=== PATIENT | female | born 1960 | race Caucasian/White ===

== ENCOUNTER 2020-10-05 00:42 | Emergency (ER) | payer OTHER ==
[~2020-10-05] VITALS: Ht 162.6 cm; Wt 109.3 kg
[~2020-10-05 00:42] MED LIST: ADVAIR 250-501 EACH INH; CLONAZEPAM2 MG PO; COMBIVENT RESPIM4 GM INH; CYCLOBENZAPRINE10 MG PO; FUROSEMIDE40 MG PO; GABAPENTIN600 MG PO; GEMFIBROZIL600 MG PO; GEODON80 MG NG; GEODON80 MG PO; KLOR-CON M1010 MEQ PO; LANTUS100 UNITS/ SUB-Q; NORCO 10-325 T1 EACH PO; NOVOLOG100 UNITS/ SUB-Q; OMEPRAZOLE20 MG PO; OXYCODONE HCL5 MG PO; PAROXETINE HCL40 MG PO; PRAZOSIN HCL2 MG PO; SIMVASTATIN40 MG PO; SINEMET CR 25-1 EACH PO; SULINDAC200 MG PO; VISTARIL50 MG PO; WELLBUTRIN XL150 MG PO; XARELTO10 MG PO
--- OUTSIDE RECORDS SUMMARY | 2020-10-05 00:44 | XMS ---
PreManage Notification: BLAIR ANDERS Security Sybase Developer Events No recent Security Events currently on file CRITERIA MET - PDMP CARE PROVIDERS FUENTES SAUNDERS Manufacturers Service Representative 04/21/2019-Current PHONE: [phone] Name Unknown [facility] Facility Current PHONE: [phone] Juanpablo Le Community Health Worker 11/02/2019-Current PHONE: [phone] Fran Gloria Home School Coordinator/Knife Glazer 10/09/2019-Current PHONE: [phone] Care Guidelines exist for the following facilities: [facility] ( 05/25/2019 ) [facility] ( [facility] VISIT COUNT (12 MO.) [address] [facility] TOTAL 1 NOTE: Visits indicate total known visits. ED/UCC VISIT TRACKING (12 MO.) 10/05/2020 00:42 [facility]KK[facility] Sheets [place] TYPE: Emergency COMPLAINT: - BLOOD SUGAR ISSUE INPATIENT VISIT TRACKING (12 MO.) No inpatient visits to display in this time frame [id number]
[2020-10-05] MEDS ORDERED: HALOPERIDOL2 MG PO (01:26)
[2020-10-05] MEDS ORDERED: LOPERAMIDE2 M1 PO (01:27)
[2020-10-05] MEDS ORDERED: ZESTRIL2.5 MG PO (01:28)
[2020-10-05] MEDS ORDERED: IPRATROPIU0.2 MG/1 M INH (01:28)
[2020-10-05] MEDS ORDERED: MELATONIN3 M3 PO (01:29)
[2020-10-05] MEDS ORDERED: MAG-AL LIQUID30 ML PO (01:30)
[2020-10-05] MEDS ORDERED: MULTIVITAMINS1 EAC7 PO (01:30)
[2020-10-05] MEDS ORDERED: NAPROSYN500 MG PO (01:31)
[2020-10-05] MEDS ORDERED: ASPIRIN81 MG PO (01:31)
[2020-10-05] MEDS ORDERED: BENZTROPINE ME0.5 MG PO (01:32)
[2020-10-05] MEDS ORDERED: DULCOLAX10 MG PR (01:32)
[2020-10-05] MEDS ORDERED: TYLENOL EXTRA500 MG PO (01:33)
== END 2020-10-05 02:49 | disposition home or self-care (01) ==
LOC: ED 00:42
DX: E11.65 Type 2 diabetes mellitus with hyperglycemia (principal); F31.9 Bipolar disorder, unspecified; F43.10 Post-traumatic stress disorder, unspecified; E11.42 Type 2 diabetes mellitus with diabetic polyneuropathy; K21.9 Gastro-esophageal reflux disease without esophagitis; G20 Parkinson's disease; Z87.891 Personal history of nicotine dependence; Z88.0 Allergy status to penicillin; Z88.8 Allergy status to other drugs, medicaments and biological substances; Z88.1 Allergy status to other antibiotic agents; Z88.7 Allergy status to serum and vaccine; Z79.899 Other long term (current) drug therapy; Z79.4 Long term (current) use of insulin; Z79.82 Long term (current) use of aspirin
CPT/HCPCS: 71045; 80053; 81001; 82010; 85025; 99285-25; J7030

== ENCOUNTER 2021-02-04 13:22 | Emergency (ER) | payer OTHER ==
[~2021-02-04] VITALS: Ht 162.6 cm; Wt 109.3 kg
[~2021-02-04 13:22] MED LIST changes: +ASPIRIN81 MG PO; +BENZTROPINE ME0.5 MG PO; +DULCOLAX10 MG PR; +HALOPERIDOL2 MG PO; +IPRATROPIU0.2 MG/1 M INH; +LOPERAMIDE2 M1 PO; +MAG-AL LIQUID30 ML PO; +MELATONIN3 M3 PO; +MULTIVITAMINS1 EAC7 PO; +NAPROSYN500 MG PO; +TYLENOL EXTRA500 MG PO; +ZESTRIL2.5 MG PO
--- OUTSIDE RECORDS SUMMARY | 2021-02-04 13:24 | XMS ---
PreManage Notification: BLAIR ANDERS Security Embedded Software Test Engineer Events No recent Security Events currently on file CRITERIA MET - [facility] FUENTES SAUNDERS Clinical Informatics Strategist 04/21/2019-Current PHONE: [phone] [facility] [employer] \F\ [employer] PHONE: [phone] Juanpablo Le Community Health Worker 11/02/2019-Current PHONE: [phone] Radha Barclay Molecular Geneticist/Application Development Consultant 12/19/2020-Current PHONE: [phone] Care Guidelines exist for the following facilities: [facility] ( 01/02/2021 ) [facility] ( 05/25/2019 ) [facility] VISIT COUNT (12 MO.) [address] [facility] TOTAL 2 NOTE: Visits indicate total known visits. ED/UCC VISIT TRACKING (12 MO.) 02/04/2021 13:23 [facility] [place] TYPE: Emergency COMPLAINT: - LEG PAIN 10/05/2020 00:42 [facility] [place] TYPE: Emergency COMPLAINT: - BLOOD SUGAR ISSUE DIAGNOSES: - Allergy status to other drugs, medicaments and biological substances - Personal history of nicotine dependence - Parkinson's disease - Disorientation, unspecified - Allergy status to other antibiotic agents - Allergy status to serum and vaccine - Allergy status to penicillin - Bipolar disorder, unspecified - Allergy status to other antibiotic agents - Allergy status to serum and vaccine - Type 2 diabetes mellitus with hyperglycemia - Other calciminer (current) drug therapy - steam shovel operating engineer (current) use of aspirin - [facility] (current) use of insulin - Allergy status to other drugs, medicaments and biological substances - Post-traumatic stress disorder, unspecified - Type 2 diabetes mellitus with diabetic polyneuropathy - Gastro-esophageal reflux disease without esophagitis INPATIENT VISIT TRACKING (12 MO.) No inpatient visits to display in this time frame [id number]
[2021-02-04] MEDS ORDERED: CLINDAMYCIN HC300 MG PO (13:35)
== END 2021-02-04 15:52 | disposition home or self-care (01) ==
LOC: ED 13:22
DX: S09.90XA Unspecified injury of head, initial encounter (principal); S92.414A Nondisplaced fracture of proximal phalanx of right great toe, initial encounter for closed fracture; S80.01XA Contusion of right knee, initial encounter; W01.10XA Fall on same level from slipping, tripping and stumbling with subsequent striking against unspecified object, initial encounter; J44.9 Chronic obstructive pulmonary disease, unspecified; K21.9 Gastro-esophageal reflux disease without esophagitis; E11.9 Type 2 diabetes mellitus without complications; Z87.891 Personal history of nicotine dependence; Z88.0 Allergy status to penicillin; Z88.8 Allergy status to other drugs, medicaments and biological substances; Z88.7 Allergy status to serum and vaccine; Z88.1 Allergy status to other antibiotic agents; Z79.899 Other long term (current) drug therapy; Z79.4 Long term (current) use of insulin; Z79.82 Long term (current) use of aspirin
CPT/HCPCS: 70450; 71045; 72125; 73560; 73630; 99284-25

== ENCOUNTER 2021-06-15 21:53 | Emergency (ER) | payer OTHER ==
[~2021-06-15] VITALS: Ht 167.6 cm; Wt 109.3 kg
[~2021-06-15 21:53] MED LIST changes: +CLINDAMYCIN HC300 MG PO
--- OUTSIDE RECORDS SUMMARY | 2021-06-15 21:56 | XMS ---
PreManage Notification: BLAIR ANDERS Security Accountant Budget Events No recent Security Events currently on file CRITERIA MET - NAYANP CARE PROVIDERS FUENTES SAUNDERS Civil Engineer In Training 04/21/2019-Current PHONE: [phone] AMNA SABILLON [facility] 02/06/2021-Current PHONE: [phone] Juanpablo Le Community Health Worker 11/02/2019-Current PHONE: [phone] Wm Milton Chairman President And Chief Executive Officer/Tripe Scraper 05/18/2021-Current PHONE: [phone] [facility] Current PHONE: [phone] Care Guidelines exist for the following facilities: [facility] [place] ( 01/02/2021 ) [facility] ( 05/25/2019 ) [place] VISIT COUNT (12 MO.) 3 RIKKI Curiel TOTAL 3 NOTE: Visits indicate total known visits. ED/UCC VISIT TRACKING (12 MO.) 06/15/2021 21:53 [facility] Sheets [place] TYPE: Emergency COMPLAINT: - BACK PAIN 02/04/2021 13:23 [facility]KK[facility] Sheets [place] TYPE: Emergency COMPLAINT: - HEAD INJURY, LEG PAIN DIAGNOSES: - Personal history of nicotine dependence - Other retirement (current) drug therapy - Nondisplaced fracture of proximal phalanx of right great toe, initial encounter for closed fracture - Nondisplaced fracture of proximal phalanx of right great toe, initial encounter for closed fracture - Unspecified injury of head, initial encounter - Allergy status to other drugs, medicaments and biological substances - Type 2 diabetes mellitus without complications - intermediate project manager (current) use of aspirin - Allergy status to penicillin - Fall on same level from slipping, tripping and stumbling with subsequent striking against unspecified object, initial encounter - Allergy status to serum and vaccine - Unspecified injury of head, initial encounter - Gastro-esophageal reflux disease without esophagitis - Chronic obstructive pulmonary disease, unspecified - Contusion of right knee, initial encounter - Allergy status to other antibiotic agents - shelter (current) use of insulin 10/05/2020 00:42 [facility] [place] TYPE: Emergency [...] 2 diabetes mellitus with hyperglycemia - Other retirement (current) drug therapy - shelter (current) use of aspirin - shelter (current) use of insulin - Allergy status to other drugs, medicaments and biological substances - Post-traumatic stress disorder, unspecified - Type 2 diabetes mellitus with diabetic polyneuropathy - Gastro-esophageal reflux disease without esophagitis INPATIENT VISIT TRACKING (12 MO.) No inpatient visits to display in this time frame [id number]
--- NOTE | 2021-06-16 20:49 | EKG ---
[facility] [address] [facility] [place], [place] [address] Signed Normal sinus rhythm Normal ECG No previous ECGs available Confirmed by IVELISSE DURAN MD ([id number]) on 06/16/2021 8:48:50 PM Electronically Signed By: IVELISSE DURAN MD 06/16/212048 PATIENT NAME: BLAIR ANDERS Electrocardiogram DATE OF : 62 PHYSICIAN: IVELISSE DURAN MD REPORT #: [id number] REPORT IS CONFIDENTIAL AND NOT TO BE RELEASED WITHOUT AUTHORIZATION
== END 2021-06-16 | disposition home or self-care (01) ==
LOC: ED 21:53
DX: G89.29 Other chronic pain (principal); M54.5 Low back pain; R07.89 Other chest pain; E11.42 Type 2 diabetes mellitus with diabetic polyneuropathy; J44.9 Chronic obstructive pulmonary disease, unspecified; K21.9 Gastro-esophageal reflux disease without esophagitis; F17.200 Nicotine dependence, unspecified, uncomplicated; Z88.8 Allergy status to other drugs, medicaments and biological substances; Z88.0 Allergy status to penicillin; Z88.7 Allergy status to serum and vaccine; Z88.1 Allergy status to other antibiotic agents; Z79.899 Other long term (current) drug therapy; Z79.4 Long term (current) use of insulin; Z79.82 Long term (current) use of aspirin
CPT/HCPCS: 71045; 80053; 83735; 84484; 85025; 93005; 93010; 99285-25

== ENCOUNTER 2021-06-28 21:21 | Emergency (ER) | payer OTHER ==
[~2021-06-28] VITALS: Ht 167.6 cm; Wt 109.3 kg
--- OUTSIDE RECORDS SUMMARY | 2021-06-28 21:24 | XMS ---
PreManage Notification: BLAIR ANDERS Security Net Developer With Wcf Events No recent Security Events currently on file CRITERIA MET - [facility] - [facility] - 2 Visits in 30 Days CARE PROVIDERS FUENTES SAUNDERS 04/21/2019-Current PHONE: [phone] AMNA SABILLON [facility] 02/06/2021-Current PHONE: [phone] Juanpablo Le Community Health Worker 11/02/2019-Current PHONE: [phone] Wm Milton Comparative Sociology Professor/Vessel Builder 06/18/2021-Current PHONE: [phone] FRANCES [facility] Current PHONE: [phone] Care Guidelines exist for the following facilities: [facility] ( 01/02/2021 ) [facility] ( 05/25/2019 ) [place] VISIT COUNT (12 MO.) 4 RIKKI Curiel TOTAL 4 NOTE: Visits indicate total known visits. ED/UCC VISIT TRACKING (12 MO.) 06/28/2021 21:21 [facility]KK[facility] Sheets [place] TYPE: Emergency COMPLAINT: - CHEST PAIN 06/15/2021 21:53 [facility] Sheets [place] TYPE: Emergency COMPLAINT: - BACK PAIN DIAGNOSES: - Low back pain - Other jail (current) drug therapy - Allergy status to other drugs, medicaments and biological substances - long-term (current) use of aspirin - Allergy status to penicillin - Nicotine dependence, unspecified, uncomplicated - technician terminal and repeater (current) use of insulin - Gastro-esophageal reflux disease without esophagitis - Other chronic pain - Chronic obstructive pulmonary disease, unspecified - Type 2 diabetes mellitus with diabetic polyneuropathy - Other chest pain - Allergy status to serum and vaccine - Allergy status to other antibiotic agents 02/04/2021 13:23 RIKK[facility] Sheets [place] TYPE: Emergency COMPLAINT: - HEAD INJURY, LEG PAIN DIAGNOSES: - Personal history of nicotine dependence - Other termite renewal inspector (current) drug therapy - Nondisplaced fracture of proximal phalanx of right great toe, initial encounter for closed fracture - Nondisplaced fracture of proximal phalanx of right great toe, initial encounter for closed fracture - Unspecified injury of head, initial encounter - Allergy status to other drugs, medicaments and biological substances - Type 2 diabetes mellitus without complications - long-term (current) use of aspirin - Allergy status [...] Allergy status to other antibiotic agents - long-term (current) use of insulin 10/05/2020 00:42 RIKKI [...] 2 diabetes mellitus with hyperglycemia - Other jail (current) drug therapy - long-term (current) use of aspirin - technician terminal and repeater (current) use of insulin - Allergy status to other drugs, medicaments and biological substances - Post-traumatic stress disorder, unspecified - Type 2 diabetes mellitus with diabetic polyneuropathy - Gastro-esophageal reflux disease without esophagitis INPATIENT VISIT TRACKING (12 MO.) No inpatient visits to display in this time frame [id number]
[2021-06-28] MEDS ORDERED: BACTRIM DS TAB1 EACH PO (22:59)
--- NOTE | 2021-06-29 20:15 | EKG ---
[facility] [address] [facility] [place], [place] [address] Signed Normal sinus rhythm Normal ECG When compared with ECG of 15-JUN-2021 22:13, No significant change was found Confirmed by SYMONE CONTRERAS DO ([id number]) on 06/29/2021 8:15:19 PM Electronically Signed By: SYMONE CONTRERAS DO 06/29/212014 PATIENT NAME: BLAIR ANDERS Electrocardiogram DATE OF : 62 PHYSICIAN: SYMONE CONTRERAS DO REPORT #: [id number] REPORT IS CONFIDENTIAL AND NOT TO BE RELEASED WITHOUT AUTHORIZATION
== END 2021-06-28 23:34 | disposition home or self-care (01) ==
LOC: ED 21:21
DX: N39.0 Urinary tract infection, site not specified (principal); F43.10 Post-traumatic stress disorder, unspecified; J44.9 Chronic obstructive pulmonary disease, unspecified; K21.9 Gastro-esophageal reflux disease without esophagitis; G20 Parkinson's disease; E11.9 Type 2 diabetes mellitus without complications; F17.200 Nicotine dependence, unspecified, uncomplicated; Z88.0 Allergy status to penicillin; Z88.7 Allergy status to serum and vaccine; Z88.1 Allergy status to other antibiotic agents; Z88.8 Allergy status to other drugs, medicaments and biological substances; Z79.899 Other long term (current) drug therapy; Z79.4 Long term (current) use of insulin; Z79.82 Long term (current) use of aspirin
CPT/HCPCS: 70450; 71045; 80053; 81001; 83735; 84484; 85025; 93005; 93010; 99285-25

== ENCOUNTER 2021-11-09 21:59 | Emergency (ER) | payer OTHER ==
[~2021-11-09] VITALS: Ht 167.6 cm; Wt 111.0 kg
[~2021-11-09 21:59] MED LIST changes: +BACTRIM DS TAB1 EACH PO
--- OUTSIDE RECORDS SUMMARY | 2021-11-09 22:00 | XMS ---
PreManage Notification: BLAIR ANDERS Security Capacity Planning Analyst Events No recent Security Events currently on file CRITERIA MET - NAYANP CARE PROVIDERS FUENTES SAUNDERS Court Specialist 04/21/2019-Current PHONE: [phone] AMNA SABILLON [facility] 02/06/2021-Current PHONE: [phone] Juanpablo Le Community Health Worker 11/02/2019-Current PHONE: [phone] Radha Barclay Results Technician/Nursing Home Director 10/18/2021-Current PHONE: [phone] [facility] Current PHONE: Unknown Care Guidelines exist for the following facilities: [facility] [employer] ( 01/02/2021 ) [employer] [facility] ( 05/25/2019 ) Care History Medical/Surgical 07/05/2021 [facility] - PATIENT WAS LAST SEEN BY PCP DR SABILLON ON 06/28/21. F/U APT SCHEDULED . ETonaD. VISIT COUNT (12 MO.) [address] [place] [address] TOTAL 4 NOTE: Visits indicate total known visits. ED/UCC VISIT TRACKING (12 MO.) 11/09/2021 21:59 RIKKI Sheets [place] TYPE: Emergency COMPLAINT: - WEAKNESS 06/28/2021 21:21 RIKK[facility] Sheets [place] TYPE: Emergency COMPLAINT: - CHEST PAIN DIAGNOSES: - Parkinson's disease - Chronic obstructive pulmonary disease, unspecified - Post-traumatic stress disorder, unspecified - Gastro-esophageal reflux disease without esophagitis - Other director long term care (current) drug therapy - Allergy status to other drugs, medicaments and biological substances - retirement (current) use of aspirin - Dizziness and giddiness - Allergy status to serum and vaccine - Allergy status to other antibiotic agents - Type 2 diabetes mellitus without complications - Allergy status to penicillin - retirement (current) use of insulin - Urinary tract infection, site not specified - Nicotine dependence, unspecified, uncomplicated 06/15/2021 21:53 [facility]KK[facility] Sheets [place] TYPE: Emergency COMPLAINT: - BACK PAIN DIAGNOSES: - Low back pain - Other group home (current) drug therapy - Allergy status to other drugs, medicaments and biological substances - vermin exterminator (current) use of aspirin - Allergy status to penicillin - Nicotine dependence, unspecified, uncomplicated - retirement (current) use of insulin - Gastro-esophageal reflux [...] Personal history of nicotine dependence - Other director long term care (current) drug therapy - Nondisplaced fracture of proximal phalanx of right great toe, initial encounter for closed fracture - Nondisplaced fracture of proximal phalanx of right great toe, initial encounter for closed fracture - Unspecified injury of head, initial encounter - Allergy status to other drugs, medicaments and biological substances - Type 2 diabetes mellitus without complications - retirement (current) use of aspirin - Allergy status [...] Allergy status to other antibiotic agents - vermin exterminator (current) use of insulin INPATIENT VISIT TRACKING (12 MO.) No inpatient visits to display in this time frame [id number]
[2021-11-09] MEDS ORDERED: PAXIL40 MG PO (22:11)
[2021-11-09] MEDS ORDERED: GEODON80 MG NG (22:12)
[2021-11-09] MEDS ORDERED: NOVOLOG100 UNIT/2 SUB-Q (22:14)
[2021-11-09] MEDS ORDERED: ULTRAM50 MG PO (22:14)
[2021-11-10] MEDS ORDERED: TRANSDERM-SCOP1 EACH TD (01:20)
--- NOTE | 2021-11-11 17:40 | EKG ---
[facility] [address] [facility] [facility] [place], [place] [address] Signed Normal sinus rhythm Low voltage QRS Borderline ECG When compared with ECG of 28-JUN-2021 21:23, No significant change was found Confirmed by SYMONE CONTRERAS DO ([id number]) on 11/11/2021 5:40:00 PM Electronically Signed By: SYMONE CONTRERAS DO 11/11/21 1740 PATIENT NAME: CHAGOBLAIRALESSANDRO BAUTISTA Electrocardiogram DATE OF : 62 PHYSICIAN: SYMONE CONTRERAS DO REPORT #: [id number] REPORT IS CONFIDENTIAL AND NOT TO BE RELEASED WITHOUT AUTHORIZATION
== END 2021-11-10 01:29 | disposition home or self-care (01) ==
LOC: ED 21:59
DX: R42 Dizziness and giddiness (principal); M19.90 Unspecified osteoarthritis, unspecified site; F43.10 Post-traumatic stress disorder, unspecified; J44.9 Chronic obstructive pulmonary disease, unspecified; K21.9 Gastro-esophageal reflux disease without esophagitis; E11.9 Type 2 diabetes mellitus without complications; F17.200 Nicotine dependence, unspecified, uncomplicated; Z88.0 Allergy status to penicillin; Z88.8 Allergy status to other drugs, medicaments and biological substances; Z88.1 Allergy status to other antibiotic agents; Z79.899 Other long term (current) drug therapy; Z79.4 Long term (current) use of insulin; Z79.82 Long term (current) use of aspirin; Z79.891 Long term (current) use of opiate analgesic
CPT/HCPCS: 70450; 80053; 84484; 85025; 93005; 93010; 99284-25

== ENCOUNTER 2021-11-18 13:24 | Emergency (ER) | payer OTHER ==
[~2021-11-18] VITALS: Ht 167.6 cm; Wt 110.7 kg
[~2021-11-18 13:24] MED LIST changes: +NOVOLOG100 UNIT/2 SUB-Q; +PAXIL40 MG PO; +TRANSDERM-SCOP1 EACH TD; +ULTRAM50 MG PO
--- OUTSIDE RECORDS SUMMARY | 2021-11-18 13:26 | XMS ---
PreManage Notification: BLAIR ANDERS Security Shopping Centre Manager Events No recent Security Events currently on file CRITERIA MET - [facility] - 2 Visits in 30 Days - [facility] C[facility] PROVIDERS FUENTES SAUNDERS 04/21/2019-Current PHONE: [phone] AMNA SABILLON [facility] 02/06/2021-Current PHONE: [phone] Juanpablo Le Community Health Worker 11/02/2019-Current PHONE: [phone] Radha Barclay Top Case Assembler/Air Valve Repairer 10/18/2021-Current PHONE: [phone] FRANCES [facility] Current PHONE: Unknown Care Guidelines exist for the following facilities: [employer] ( 01/02/2021 ) [employer] ( 05/25/2019 ) Care History Medical/Surgical 07/05/2021 [facility] - PATIENT WAS LAST SEEN BY PCP DR SABILLON ON 06/28/21. F/U APT SCHEDULED . ETonaD. VISIT COUNT (12 MO.) [address] [place] [address] TOTAL 5 NOTE: Visits indicate total known visits. ED/UCC VISIT TRACKING (12 MO.) 11/18/2021 13:24 [facility]KK[facility] Sheets [place] TYPE: Emergency COMPLAINT: - COVID SYPTOMS 11/09/2021 21:59 RIKKI Sheets [place] TYPE: Emergency COMPLAINT: - WEAKNESS DIAGNOSES: - Nicotine dependence, unspecified, uncomplicated - Dizziness and giddiness - detention (current) use of insulin - Allergy status to penicillin - extermination inspector (current) use of aspirin - Allergy status to other antibiotic agents - Unspecified osteoarthritis, unspecified site - extermination inspector (current) use of opiate analgesic - Other regional intermodal truck driver (current) drug therapy - Gastro-esophageal reflux disease without esophagitis - Chronic obstructive pulmonary disease, unspecified - Type 2 diabetes mellitus without complications - Post-traumatic stress disorder, unspecified - Allergy status to other drugs, medicaments and biological substances 06/28/2021 21:21 RIKKI Sheets [place] TYPE: Emergency COMPLAINT: - CHEST PAIN DIAGNOSES: - Parkinson's disease - Chronic obstructive pulmonary disease, unspecified - Post-traumatic stress disorder, unspecified - Gastro-esophageal reflux disease without esophagitis - Other alf (current) drug therapy - Allergy status to other drugs, medicaments and biological substances - detention (current) use of aspirin - Dizziness and giddiness - Allergy status to serum and vaccine - Allergy status to other antibiotic agents - Type 2 diabetes mellitus without complications - Allergy status to penicillin - extermination inspector (current) use of insulin - Urinary tract infection, site not specified - Nicotine dependence, unspecified, uncomplicated 06/15/2021 21:53 [facility]KK[facility] Sheets [place] TYPE: Emergency COMPLAINT: - BACK PAIN DIAGNOSES: - Low back pain - Other alf (current) drug therapy - Allergy status to other drugs, medicaments and biological substances - extermination inspector (current) use of aspirin - Allergy status to penicillin - Nicotine dependence, unspecified, uncomplicated - detention (current) use of insulin - Gastro-esophageal reflux disease without esophagitis - Other chronic pain - Chronic obstructive pulmonary disease, unspecified - Type 2 diabetes mellitus with diabetic polyneuropathy - Other chest pain - Allergy status to serum and vaccine - Allergy status to other antibiotic agents 02/04/2021 13:[address] [facility] [place] TYPE: Emergency COMPLAINT: - HEAD INJURY, LEG PAIN DIAGNOSES: - Personal history of nicotine dependence - Other regional intermodal truck driver (current) drug therapy - Nondisplaced fracture of proximal phalanx of right great toe, initial encounter for closed fracture - Nondisplaced fracture of proximal phalanx of right great toe, initial encounter for closed fracture - Unspecified injury of head, initial encounter - Allergy status to other drugs, medicaments and biological substances - Type 2 diabetes mellitus without complications - extermination inspector (current) use of aspirin - Allergy status [...] Allergy status to other antibiotic agents - detention (current) use of insulin INPATIENT VISIT TRACKING (12 MO.) No inpatient visits to display in this time frame [id number]
[2021-11-19] MEDS ORDERED: IPRAT-ALBUT 0.5-3 ML INH (17:30)
[2021-11-19] MEDS ORDERED: PREDNISONE20 MG PO (17:30)
== END 2021-11-18 16:00 | disposition home or self-care (01) ==
LOC: ED 13:24
DX: J20.5 Acute bronchitis due to respiratory syncytial virus (principal); Z20.822 Contact with and (suspected) exposure to COVID-19; M19.90 Unspecified osteoarthritis, unspecified site; F43.10 Post-traumatic stress disorder, unspecified; J44.9 Chronic obstructive pulmonary disease, unspecified; K21.9 Gastro-esophageal reflux disease without esophagitis; G20 Parkinson's disease; E11.9 Type 2 diabetes mellitus without complications; F20.9 Schizophrenia, unspecified; F17.200 Nicotine dependence, unspecified, uncomplicated; Z88.0 Allergy status to penicillin; Z88.7 Allergy status to serum and vaccine; Z79.899 Other long term (current) drug therapy; Z79.4 Long term (current) use of insulin; Z79.82 Long term (current) use of aspirin; Z79.891 Long term (current) use of opiate analgesic
CPT/HCPCS: 71045; 94640; 99285-25; C9803; U0003

== ENCOUNTER 2021-11-19 13:51 | Emergency (ER) | payer OTHER ==
[~2021-11-19] VITALS: Ht 167.6 cm; Wt 110.7 kg
--- OUTSIDE RECORDS SUMMARY | 2021-11-19 13:54 | XMS ---
PreManage Notification: BLAIR ANDERS Security Boxer Operator Events No recent Security Events currently on file CRITERIA MET - [facility] - [facility] FUENTES SAUNDERS 04/21/2019-Current PHONE: [phone] AMNA SABILLON [facility] 02/06/2021-Current PHONE: [phone] Juanpablo Le Community Health Worker 11/02/2019-Current PHONE: [phone] Radha Barclay Golf Course Equipment Operator/Drug Purchaser 10/18/2021-Current PHONE: [phone] FRANCES [facility] Current PHONE: Unknown Care Guidelines exist for the following facilities: [employer] ( 01/02/2021 ) [employer] ( 05/25/2019 ) Care History Medical/Surgical 07/05/2021 [facility] - PATIENT WAS LAST SEEN BY PCP DR SABILLON ON 06/28/21. F/U APT SCHEDULED . ETonaD. VISIT COUNT (12 MO.) 6 [facility] TOTAL 6 NOTE: Visits indicate total known visits. ED/UCC VISIT TRACKING (12 MO.) 11/19/2021 13:52 [facility]KK[facility] Sheets [place] TYPE: Emergency COMPLAINT: - CAUGH 11/18/2021 13:24 [facility]KK[facility] Sheets [place] TYPE: Emergency COMPLAINT: - COVID SYPTOMS 11/09/2021 21:59 [facility]KK[facility] Sheets [place] TYPE: Emergency COMPLAINT: - WEAKNESS DIAGNOSES: - Nicotine dependence, unspecified, uncomplicated - Dizziness and giddiness - USP (current) use of insulin - Allergy status to penicillin - USP (current) use of aspirin - Allergy status to other antibiotic agents - Unspecified osteoarthritis, unspecified site - USP (current) use of opiate analgesic - Other retirement (current) drug therapy - Gastro-esophageal reflux disease [...] Gastro-esophageal reflux disease without esophagitis - Other termite exterminator (current) drug therapy - Allergy status to other drugs, medicaments and biological substances - adjunct faculty for medical terminology (current) use of aspirin - Dizziness and giddiness - Allergy status to serum and vaccine - Allergy status to other antibiotic agents - Type 2 diabetes mellitus without complications - Allergy status to penicillin - USP (current) use of insulin - Urinary tract infection, site not specified - Nicotine dependence, unspecified, uncomplicated 06/15/2021 21:53 RIKKI Sheets [place] TYPE: Emergency COMPLAINT: - BACK PAIN DIAGNOSES: - Low back pain - Other termite exterminator (current) drug therapy - Allergy status to other drugs, medicaments and biological substances - adjunct faculty for medical terminology (current) use of aspirin - Allergy status to penicillin - Nicotine dependence, unspecified, uncomplicated - USP (current) use of insulin - Gastro-esophageal reflux [...] Type 2 diabetes mellitus without complications - USP (current) use of aspirin - Allergy status [...] Allergy status to other antibiotic agents - adjunct faculty for medical terminology (current) use of insulin INPATIENT VISIT TRACKING (12 MO.) No inpatient visits to display in this time frame [email or web address]
[2021-11-19] MEDS ORDERED: PREDNISONE20 MG PO (17:30)
[2021-11-19] MEDS ORDERED: IPRAT-ALBUT 0.5-3 ML INH (17:30)
== END 2021-11-19 18:22 | disposition home or self-care (01) ==
LOC: ED 13:51
DX: J20.5 Acute bronchitis due to respiratory syncytial virus (principal); J44.1 Chronic obstructive pulmonary disease with (acute) exacerbation; M19.90 Unspecified osteoarthritis, unspecified site; F43.10 Post-traumatic stress disorder, unspecified; K21.9 Gastro-esophageal reflux disease without esophagitis; G20 Parkinson's disease; E11.9 Type 2 diabetes mellitus without complications; F17.200 Nicotine dependence, unspecified, uncomplicated; Z88.0 Allergy status to penicillin; Z88.7 Allergy status to serum and vaccine; Z88.1 Allergy status to other antibiotic agents; Z88.8 Allergy status to other drugs, medicaments and biological substances; Z79.899 Other long term (current) drug therapy; Z79.4 Long term (current) use of insulin; Z79.82 Long term (current) use of aspirin
CPT/HCPCS: 99283; J7512

== ENCOUNTER 2021-12-15 21:40 | Emergency (ER) | payer OTHER ==
[~2021-12-15] VITALS: Ht 167.6 cm; Wt 110.2 kg
[~2021-12-15 21:40] MED LIST changes: +IPRAT-ALBUT 0.5-3 ML INH; +PREDNISONE20 MG PO
--- OUTSIDE RECORDS SUMMARY | 2021-12-15 21:42 | XMS ---
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 Events No recent Security Events currently on file CRITERIA MET - [facility] - [facility] - 2 Visits in 30 Days CARE PROVIDERS FUENTES SAUNDERS 04/21/2019-Current PHONE: [phone] AMNA SABILLON [facility] 02/06/2021-Current PHONE: [phone] Juanpablo Le Community Health Worker 11/02/2019-Current PHONE: [phone] Radha Barclay Art Therapy Certified Supervisor/Social Worker Psychiatric 10/18/2021-Current PHONE: [phone] FRANCES [facility] Current PHONE: Unknown Care Guidelines exist for the following facilities: [facility] ( 01/02/2021 ) [facility] ( 05/25/2019 ) Care History Medical/Surgical 11/21/2021 [facility] - CHW CONTACTED PCP OFFICE- DISCUSSED WITH DAVID NGUYEN THAT THE PATIENT WOULD BENEFIT FROM A ER F/U.PATIENT CURRENTLY [facility] [facility] [place] SABILLON HAS NOW SET UP A VIRTUAL VISIT WITH PATIENT FOR 11/22/21 AND IN PERSON APPOINTMENT SET UP ON 12/05/21. 07/05/2021 [facility] - PATIENT WAS LAST SEEN BY PCP DR SABILLON ON 06/28/21. F/U APT SCHEDULED . E.D. VISIT COUNT (12 MO.) [address] [place] [address] TOTAL 7 NOTE: Visits indicate total known visits. ED/UCC VISIT TRACKING (12 MO.) 12/15/2021 21:40 [facility] [place] TYPE: Emergency COMPLAINT: - SORE THROAT 11/19/2021 13:52 [facility] [place] TYPE: Emergency COMPLAINT: - COUGH DIAGNOSES: - Parkinson's disease - Type 2 diabetes mellitus without complications - Gastro-esophageal reflux disease without esophagitis - [facility]FP (current) use of insulin - Allergy status to serum and vaccine - Acute bronchitis due to respiratory syncytial virus - Nicotine dependence, unspecified, uncomplicated - Chronic obstructive pulmonary disease with (acute) exacerbation - Allergy status to other drugs, medicaments and biological substances - Unspecified osteoarthritis, unspecified site - terminal computer operator (current) use of aspirin - Allergy status to penicillin - Allergy status to other antibiotic agents - Other extermination supervisor (current) drug therapy - Post-traumatic stress disorder, unspecified 11/18/2021 13:24 [facility] [place] TYPE: Emergency COMPLAINT: - COVID SYPTOMS DIAGNOSES: - Chronic obstructive pulmonary disease, unspecified - COUGH, UNSPECIFIED - MCFP (current) use of opiate analgesic - Unspecified osteoarthritis, unspecified site - Other extermination supervisor (current) drug therapy - Allergy status to serum and vaccine - Parkinson's disease - Acute bronchitis due to respiratory syncytial virus - terminal computer operator (current) use of aspirin - Type 2 diabetes mellitus without complications - Schizophrenia, unspecified - MCFP (current) use of insulin - Allergy status to penicillin - Nicotine dependence, unspecified, uncomplicated - Post-traumatic stress disorder, unspecified - Gastro-esophageal reflux disease without esophagitis 11/09/2021 21:59 [facility] [place] TYPE: Emergency COMPLAINT: - WEAKNESS DIAGNOSES: - Nicotine dependence, unspecified, uncomplicated - Dizziness and giddiness - terminal computer operator (current) use of insulin - Allergy status to penicillin - MCFP (current) use of aspirin - Allergy status to other antibiotic agents - Unspecified osteoarthritis, unspecified site - terminal computer operator (current) use of opiate analgesic - Other halfway (current) drug therapy - Gastro-esophageal reflux disease [...] Gastro-esophageal reflux disease without esophagitis - Other halfway (current) drug therapy - Allergy status to other drugs, medicaments and biological substances - MCFP (current) use of aspirin - Dizziness and giddiness - Allergy status to serum and vaccine - Allergy status to other antibiotic agents - Type 2 diabetes mellitus without complications - Allergy status to penicillin - MCFP (current) use of insulin - Urinary tract infection, site not specified - Nicotine dependence, unspecified, uncomplicated 06/15/2021 21:53 [facility] [place] TYPE: Emergency COMPLAINT: - BACK PAIN DIAGNOSES: - Low back pain - Other halfway (current) drug therapy - Allergy status to other drugs, medicaments and biological substances - MCFP (current) use of aspirin - Allergy status to penicillin - Nicotine dependence, unspecified, uncomplicated - MCFP (current) use of insulin - Gastro-esophageal reflux [...] Personal history of nicotine dependence - Other extermination supervisor (current) drug therapy - Nondisplaced fracture of proximal phalanx of right great toe, initial encounter for closed fracture - Nondisplaced fracture of proximal phalanx of right great toe, initial encounter for closed fracture - Unspecified injury of head, initial encounter - Allergy status to other drugs, medicaments and biological substances - Type 2 diabetes mellitus without complications - terminal computer operator (current) use of aspirin - Allergy status [...] Allergy status to other antibiotic agents - terminal computer operator (current) use of insulin INPATIENT VISIT TRACKING (12 MO.) No inpatient visits to display in this time frame [email or web address]
[2021-12-15] MEDS ORDERED: ADVAIR HFA 115-12 GM INH (21:57)
[2021-12-15] MEDS ORDERED: CYCLOBENZAPRINE10 MG PO (21:57)
== END 2021-12-16 00:15 | disposition home or self-care (01) ==
LOC: ED 21:40
DX: J02.8 Acute pharyngitis due to other specified organisms (principal); Z20.822 Contact with and (suspected) exposure to COVID-19; M17.0 Bilateral primary osteoarthritis of knee; J44.9 Chronic obstructive pulmonary disease, unspecified; K21.9 Gastro-esophageal reflux disease without esophagitis; E11.9 Type 2 diabetes mellitus without complications; F17.200 Nicotine dependence, unspecified, uncomplicated; Z88.0 Allergy status to penicillin; Z88.1 Allergy status to other antibiotic agents; Z88.8 Allergy status to other drugs, medicaments and biological substances; Z79.52 Long term (current) use of systemic steroids; Z79.4 Long term (current) use of insulin; Z79.82 Long term (current) use of aspirin; Z79.899 Other long term (current) drug therapy
CPT/HCPCS: 94640; 99283; A9270; C9803; U0003

== ENCOUNTER 2022-04-02 23:55 | Emergency (ER) | payer OTHER ==
[~2022-04-02] VITALS: Ht 167.6 cm; Wt 111.6 kg
[~2022-04-02 23:55] MED LIST changes: +ADVAIR HFA 115-12 GM INH
--- OUTSIDE RECORDS SUMMARY | 2022-04-02 23:58 | XMS ---
PreManage Notification: BLAIR ANDERS Security Tool Supervisor Events No recent Security Events currently on file CRITERIA MET - [facility] CARE PROVIDERS FUENTES SAUNDERS [employer] Servicer 04/21/2019-Current PHONE: [phone] AMNA SABILLON [facility] 02/06/2021-Current PHONE: [phone] Juanpablo Le Community Health Worker 11/02/2019-Current PHONE: [phone] Radha Barclay College Instructor/Mint Wafer Depositor 10/18/2021-Current PHONE: [phone] FRANCES [facility] Current PHONE: Unknown Care Guidelines exist for the following facilities: [employer] [place] ( 01/02/2021 ) [employer] ( 05/25/2019 ) Care History Medical/Surgical 11/21/2021 [facility] - W CONTACTED PCP OFFICE- DISCUSSED WITH DAVID NGUYEN THAT THE PATIENT WOULD BENEFIT FROM A ER F/U.PATIENT CURRENTLY RESIDES AT [facility] AND DR SABILLON HAS NOW SET UP A VIRTUAL VISIT WITH PATIENT FOR 11/22/21 AND IN PERSON APPOINTMENT SET UP ON 12/05/21. 07/05/2021 [facility] - PATIENT WAS LAST SEEN BY PCP DR SABILLON ON 06/28/21. F/U APT SCHEDULED . E.D. VISIT COUNT (12 MO.) 7 [facility]. TOTAL 7 NOTE: Visits indicate total known visits. ED/UCC VISIT TRACKING (12 MO.) 04/02/2022 23:55 [facility] [place] TYPE: Emergency COMPLAINT: - WEAKNESS 12/15/2021 21:40 [facility] [place] TYPE: Emergency COMPLAINT: - SORE THROAT DIAGNOSES: - Allergy status to penicillin - Gastro-esophageal reflux disease without esophagitis - COUGH, UNSPECIFIED - Chronic obstructive pulmonary disease, unspecified - penitentiary (current) use of insulin - Nicotine dependence, unspecified, uncomplicated - Contact with and (suspected) exposure to COVID-19 - long term care pharmacist (current) use of systemic steroids - Acute pharyngitis due to other specified organisms - Allergy status to other antibiotic agents - penitentiary (current) use of aspirin - Allergy status to other drugs, medicaments and biological substances - Other rn long term care (current) drug therapy - Bilateral primary osteoarthritis of knee - Type 2 diabetes mellitus without complications - Cough, unspecified - Type 2 diabetes mellitus with diabetic polyneuropathy 11/19/2021 13:52 [facility] [place] TYPE: Emergency COMPLAINT: - COUGH DIAGNOSES: - Parkinson's disease - Type 2 diabetes mellitus without complications - Gastro-esophageal reflux disease without esophagitis - long term care pharmacist (current) use of insulin - Allergy status to serum and vaccine - Acute bronchitis due to respiratory syncytial virus - Nicotine dependence, unspecified, uncomplicated - Chronic obstructive pulmonary disease with (acute) exacerbation - Allergy status to other drugs, medicaments and biological substances - Unspecified osteoarthritis, unspecified site - penitentiary (current) use of aspirin - Allergy status to penicillin - Allergy status to other antibiotic agents - Other rn long term care (current) drug therapy - Post-traumatic stress disorder, unspecified 11/18/2021 13:24 [facility] [place] TYPE: Emergency COMPLAINT: - COVID SYPTOMS DIAGNOSES: - Type 2 diabetes mellitus without complications - Cough, unspecified - Gastro-esophageal reflux disease without esophagitis - Post-traumatic stress disorder, unspecified - Nicotine dependence, unspecified, uncomplicated - Allergy status to penicillin - Contact with and (suspected) exposure to COVID-19 - penitentiary (current) use of insulin - Schizophrenia, unspecified - Chronic obstructive pulmonary disease, unspecified - penitentiary (current) use of aspirin - Acute bronchitis due to respiratory syncytial virus - Parkinson's disease - Allergy status to serum and vaccine - Other rn long term care (current) drug therapy - Unspecified osteoarthritis, unspecified site - penitentiary (current) use of opiate analgesic - COUGH, UNSPECIFIED 11/09/2021 21:59 [facility] [place] TYPE: Emergency COMPLAINT: - WEAKNESS DIAGNOSES: - Nicotine dependence, unspecified, uncomplicated - Dizziness and giddiness - penitentiary (current) use of insulin - Allergy status to penicillin - long term care pharmacist (current) use of aspirin - Allergy status to other antibiotic agents - Unspecified osteoarthritis, unspecified site - long term care pharmacist (current) use of opiate analgesic - Other rn long term care (current) drug therapy - Gastro-esophageal reflux disease [...] Gastro-esophageal reflux disease without esophagitis - Other rn long term care (current) drug therapy - Allergy status to other drugs, medicaments and biological substances - penitentiary (current) use of aspirin - Dizziness and giddiness - Allergy status to serum and vaccine - Allergy status to other antibiotic agents - Type 2 diabetes mellitus without complications - Allergy status to penicillin - long term care pharmacist (current) use of insulin - Urinary tract infection, site not specified - Nicotine dependence, unspecified, uncomplicated 06/15/2021 21:[address] [facility] [place] TYPE: Emergency COMPLAINT: - BACK PAIN DIAGNOSES: - Low back pain - Other long-term (current) drug therapy - Allergy status to other drugs, medicaments and biological substances - long term care pharmacist (current) use of aspirin - Allergy status to penicillin - Nicotine dependence, unspecified, uncomplicated - long term care pharmacist (current) use of insulin - Gastro-esophageal reflux disease without esophagitis - Other chronic pain - Chronic obstructive pulmonary disease, unspecified - Type 2 diabetes mellitus with diabetic polyneuropathy - Other chest pain - Allergy status to serum and vaccine - Allergy status to other antibiotic agents INPATIENT VISIT TRACKING (12 MO.) No inpatient visits to display in this time frame [id number]
[2022-04-03] MEDS ORDERED: MAPAP500 MG PO (01:54)
--- NOTE | 2022-04-04 00:21 | EKG ---
[facility] [address] [place], [place] [address] Signed Normal sinus rhythm Low voltage QRS Borderline ECG When compared with ECG of 09-NOV-2021 22:29, No significant change was found Confirmed by IVELISSE DURAN MD ([id number]) on 04/04/2022 12:21:41 AM Electronically Signed By: IVELISSE DURAN MD 04/04/2220 PATIENT NAME: ELIA ANDERSALESSANDRO COBURNE Electrocardiogram DATE OF : 62 PHYSICIAN: IVELISSE DURAN MD REPORT #: [id number] REPORT IS CONFIDENTIAL AND NOT TO BE RELEASED WITHOUT AUTHORIZATION
== END 2022-04-03 04:04 | disposition home or self-care (01) ==
LOC: ED 23:55
DX: U07.1 COVID-19 (principal); E11.40 Type 2 diabetes mellitus with diabetic neuropathy, unspecified; J44.9 Chronic obstructive pulmonary disease, unspecified; K21.9 Gastro-esophageal reflux disease without esophagitis; G20 Parkinson's disease; M17.0 Bilateral primary osteoarthritis of knee; F17.200 Nicotine dependence, unspecified, uncomplicated; Z88.0 Allergy status to penicillin; Z88.7 Allergy status to serum and vaccine; Z88.8 Allergy status to other drugs, medicaments and biological substances; Z79.899 Other long term (current) drug therapy; Z79.52 Long term (current) use of systemic steroids; Z79.4 Long term (current) use of insulin; Z79.82 Long term (current) use of aspirin
CPT/HCPCS: 36415; 80053; 84484; 85025; 87502; 93005; 93010; 96374; 96375; 99284-25; A9270; J1885; J7121; U0003

== ENCOUNTER 2022-11-04 11:36 | Emergency (ER) | payer OTHER ==
[~2022-11-04] VITALS: Ht 167.6 cm; Wt 119.3 kg
[~2022-11-04 11:36] MED LIST changes: +BASAGLAR K100 UNIT/1; +BUSPIRONE HCL5 MG PO; +FAMOTIDINE20 MG PO; +MAPAP500 MG PO; +MINIPRESS2 MG PO; +PAXIL20 MG PO; +PRIMIDONE50 MG PO; +REXULTI1 MG PO; +SINEMET 25-1001 EACH PO; -SINEMET CR 25-1 EACH PO; +VENTOLIN HFA18 GM INH; +ZYRTEC10 M3 PO
--- OUTSIDE RECORDS SUMMARY | 2022-11-04 11:38 | XMS ---
PreManage Notification: BLAIR ANDERS Security Chief Scientist Events No recent Security Events currently on file CRITERIA MET - [employer] CARE PROVIDERS FUENTES SAUNDERS Putty And Patch Worker 04/21/2019-Current PH[facility]: [phone] [facility]Current PHONE: [phone] Juanpablo Le Community Health Worker 11/02/2019-Current PHONE: [phone] FRANCES [facility] Current PHONE: Unknown Care Guidelines exist for the following facilities: [employer] ( 01/02/2021 ) [facility] ( 05/25/2019 ) Care History Medical/Surgical 11/21/2021 [facility] - CHW CONTACTED PCP OFFICE- DISCUSSED WITH DAVID NGUYEN THAT THE PATIENT WOULD BENEFIT FROM A ER F/U.PATIENT CURRENTLY RESIDES AT [facility] AND DR SABILLON HAS NOW SET UP A VIRTUAL VISIT WITH PATIENT FOR 11/22/21 AND IN PERSON APPOINTMENT SET UP ON 12/05/21. 07/05/2021 [facility] - PATIENT WAS LAST SEEN BY PCP DR SABILLON ON 06/28/21. F/U APT SCHEDULED . E.D. VISIT COUNT ([address] 7 [facility]. TOTAL 7 NOTE: Visits indicate total known visits. ED/UCC VISIT TRACKING (12 MO.) 11/04/2022 11:37 [facility] [place] TYPE: Emergency COMPLAINT: - BLOOD SUGAR PROBLEM 04/24/2022 00:38 [facility] [place] TYPE: Emergency COMPLAINT: - CHEST PAIN DIAGNOSES: - Allergy status to other drugs, medicaments and biological substances - Other chest pain - correction (current) use of oral hypoglycemic drugs - Allergy status to penicillin - Schizophrenia, unspecified - Chronic obstructive pulmonary disease, unspecified - Other halfway (current) drug therapy - Chest pain, unspecified - Nicotine dependence, unspecified, uncomplicated - Allergy status to serum and vaccine - filer finish (current) use of aspirin - Parkinson's disease - Type 2 diabetes mellitus with diabetic polyneuropathy 04/02/2022 23:55 [facility] [place] TYPE: Emergency COMPLAINT: - WEAKNESS DIAGNOSES: - correction (current) use of systemic steroids - Gastro-esophageal reflux disease without esophagitis - Anesthesia of skin - Type 2 diabetes mellitus with diabetic neuropathy, unspecified - Chronic obstructive pulmonary disease, unspecified - Bilateral primary osteoarthritis of knee - Parkinson's disease - Allergy status to penicillin - correction (current) use of insulin - Nicotine dependence, unspecified, uncomplicated - filer finish (current) use of aspirin - Allergy status to serum and vaccine - COVID-19 - Other emanations analysis technician (current) drug therapy - Allergy status to other drugs, medicaments and biological substances 12/15/2021 21:40 [facility] [place] TYPE: Emergency COMPLAINT: - SORE THROAT DIAGNOSES: - Bilateral primary osteoarthritis of knee - Contact with and (suspected) exposure to COVID-19 - Cough, unspecified - Acute pharyngitis due to other specified organisms - Allergy status to other antibiotic agents - Gastro-esophageal reflux disease without esophagitis - correction (current) use of aspirin - Chronic obstructive pulmonary disease, unspecified - Other halfway (current) drug therapy - Nicotine dependence, unspecified, uncomplicated - Type 2 diabetes mellitus without complications - filer finish (current) use of systemic steroids - Type 2 diabetes mellitus with diabetic polyneuropathy - Allergy status to penicillin - COUGH, UNSPECIFIED - Allergy status to other drugs, medicaments and biological substances - filer finish (current) use of insulin 11/19/2021 13:52 [facility] [place] TYPE: Emergency COMPLAINT: - COUGH DIAGNOSES: - Allergy status to serum and vaccine - Allergy status to penicillin - Gastro-esophageal reflux disease without esophagitis - Unspecified osteoarthritis, unspecified site - Parkinson's disease - Chronic obstructive pulmonary disease with (acute) exacerbation - Post-traumatic stress disorder, unspecified - Acute bronchitis due to respiratory syncytial virus - Allergy status to other antibiotic agents - filer finish (current) use of insulin - correction (current) use of aspirin - Type 2 diabetes mellitus without complications - Allergy status to other drugs, medicaments and biological substances - Nicotine dependence, unspecified, uncomplicated - Other emanations analysis technician (current) drug therapy 11/18/2021 13:24 [facility] [place] TYPE: Emergency COMPLAINT: - COVID SYPTOMS DIAGNOSES: - Other emanations analysis technician (current) drug therapy - filer finish (current) use of insulin - correction (current) use of opiate analgesic - Type 2 diabetes mellitus without complications - Chronic obstructive pulmonary disease, unspecified - Gastro-esophageal reflux disease without esophagitis - Acute bronchitis due to respiratory syncytial virus - Nicotine dependence, unspecified, uncomplicated - Allergy status to serum and vaccine - Contact with and (suspected) exposure to COVID-19 - Unspecified osteoarthritis, unspecified site - Schizophrenia, unspecified - COUGH, UNSPECIFIED - Cough, unspecified - filer finish (current) use of aspirin - Post-traumatic stress disorder, unspecified - Parkinson's disease - Allergy status to penicillin 11/09/2021 21:59 [facility] [place] TYPE: Emergency COMPLAINT: - WEAKNESS DIAGNOSES: - correction (current) use of aspirin - Type 2 diabetes mellitus without complications - correction (current) use of insulin - Gastro-esophageal reflux disease without esophagitis - Nicotine dependence, unspecified, uncomplicated - correction (current) use of opiate analgesic - Allergy status to other antibiotic agents - Post-traumatic stress disorder, unspecified - Allergy status to penicillin - Chronic obstructive pulmonary disease, unspecified - Dizziness and giddiness - Other halfway (current) drug therapy - Unspecified osteoarthritis, unspecified site - Allergy status to other drugs, medicaments and biological substances INPATIENT VISIT TRACKING (12 MO.) No inpatient visits to display in this time frame [id number]
== END 2022-11-04 12:50 | disposition left against medical advice (07) ==
LOC: ED 11:36
DX: R73.09 Other abnormal glucose (principal); Z53.21 Procedure and treatment not carried out due to patient leaving prior to being seen by health care provider

== ENCOUNTER 2022-11-09 11:47 | Emergency (ER) | payer OTHER ==
[~2022-11-09] VITALS: Ht 167.6 cm; Wt 109.8 kg
--- OUTSIDE RECORDS SUMMARY | 2022-11-09 12:07 | XMS ---
PreManage Notification: BLAIR ANDERS Security Financial Center Manager Events No recent Security Events currently on file CRITERIA MET - [facility] - 2 [facility] Days [facility] FUENTES SAUNDERS 04/21/2019-Current PHONE: [phone] AMNA SABILLON [facility] 02/06/2021-Current PHONE: [phone] Juanpablo Le Community Health Worker 11/02/2019-Current PHONE: [phone] Radha Barclay Analytics Senior Manager/Plasterer Rough 10/18/2022-Current PHONE: [phone] FRANCES [facility] Current PHONE: Unknown Care Guidelines exist for the following facilities: [facility] ( 01/02/2021 ) [facility] ( 05/25/2019 ) Care History Medical/Surgical 11/21/2021 [facility] - CHW CONTACTED PCP OFFICE- DISCUSSED WITH DAVID NGUYEN THAT THE PATIENT WOULD BENEFIT FROM A ER F/U.PATIENT CURRENTLY RESIDES AT [facility] [place] AND DR SABILLON HAS NOW SET UP A VIRTUAL VISIT WITH PATIENT FOR 11/22/21 AND IN PERSON APPOINTMENT SET UP ON 12/05/21. 07/05/2021 [facility] - PATIENT WAS LAST SEEN BY PCP DR SABILLON ON 06/28/21. F/U APT SCHEDULED . E.D. VISIT COUNT (12 MO.) [address] [place] [address] TOTAL 8 NOTE: Visits indicate total known visits. ED/UCC VISIT TRACKING (12 MO.) 11/09/2022 11:[address] [facility] [place] TYPE: Emergency COMPLAINT: - COUGH 11/04/2022 11:[address] [facility] [place] TYPE: Emergency COMPLAINT: - BLOOD SUGAR PROBLEM 04/24/2022 00:38 [facility] [place] TYPE: Emergency COMPLAINT: - CHEST PAIN DIAGNOSES: - Parkinson's disease - Type 2 diabetes mellitus with diabetic polyneuropathy - Allergy status to other drugs, medicaments and biological substances - Other chest pain - ferry terminal supervisor (current) use of oral hypoglycemic drugs - Allergy status to penicillin - Schizophrenia, unspecified - Chronic obstructive pulmonary disease, unspecified - Other correction (current) drug therapy - Chest pain, unspecified - Nicotine dependence, unspecified, uncomplicated - Allergy status to serum and vaccine - ferry terminal supervisor (current) use of aspirin 04/02/2022 23:55 [facility] [place] TYPE: Emergency COMPLAINT: - WEAKNESS DIAGNOSES: - COVID-19 - Other tank terminal gauger (current) drug therapy - Allergy status to other drugs, medicaments and biological substances - ferry terminal supervisor (current) use of systemic steroids - Gastro-esophageal reflux disease without esophagitis - Anesthesia of skin - Type 2 diabetes mellitus with diabetic neuropathy, unspecified - Chronic obstructive pulmonary disease, unspecified - Bilateral primary osteoarthritis of knee - Parkinson's disease - Allergy status to penicillin - ferry terminal supervisor (current) use of insulin - Nicotine dependence, unspecified, uncomplicated - ferry terminal supervisor (current) use of aspirin - Allergy status to serum and vaccine 12/15/2021 21:40 [facility] [place] TYPE: Emergency COMPLAINT: - SORE THROAT DIAGNOSES: - Allergy status to penicillin - COUGH, UNSPECIFIED - Allergy status to other drugs, medicaments and biological substances - ferry terminal supervisor (current) use of insulin - Bilateral primary osteoarthritis of knee - Contact with and (suspected) exposure to COVID-19 - Cough, unspecified - Acute pharyngitis due to other specified organisms - Allergy status to other antibiotic agents - Gastro-esophageal reflux disease without esophagitis - ferry terminal supervisor (current) use of aspirin - Chronic obstructive pulmonary disease, unspecified - Other correction (current) drug therapy - Nicotine dependence, unspecified, uncomplicated - Type 2 diabetes mellitus without complications - FPC (current) use of systemic steroids - Type 2 diabetes mellitus with diabetic polyneuropathy 11/19/2021 13:52 [facility] [place] TYPE: Emergency COMPLAINT: - COUGH DIAGNOSES: - Allergy status to other drugs, medicaments and biological substances - Nicotine dependence, unspecified, uncomplicated - Other correction (current) drug therapy - Allergy status to serum and vaccine - Allergy status to penicillin - Gastro-esophageal reflux disease without esophagitis - Unspecified osteoarthritis, unspecified site - Parkinson's disease - Chronic obstructive pulmonary disease with (acute) exacerbation - Post-traumatic stress disorder, unspecified - Acute bronchitis due to respiratory syncytial virus - Allergy status to other antibiotic agents - FPC (current) use of insulin - FPC (current) use of aspirin - Type 2 diabetes mellitus without complications 11/18/2021 13:24 [facility] [place] TYPE: Emergency COMPLAINT: - COVID SYPTOMS DIAGNOSES: - ferry terminal supervisor (current) use of aspirin - Post-traumatic stress disorder, unspecified - Parkinson's disease - Allergy status to penicillin - Other correction (current) drug therapy - FPC (current) use of insulin - FPC (current) use of opiate analgesic - Type [...] unspecified - COUGH, UNSPECIFIED - Cough, unspecified 11/09/2021 21:[address] [facility] [place] TYPE: Emergency COMPLAINT: - WEAKNESS DIAGNOSES: - Other correction (current) drug therapy - Unspecified osteoarthritis, unspecified site - Allergy status to other drugs, medicaments and biological substances - ferry terminal supervisor (current) use of aspirin - Type 2 diabetes mellitus without complications - ferry terminal supervisor (current) use of insulin - Gastro-esophageal reflux disease without esophagitis - Nicotine dependence, unspecified, uncomplicated - ferry terminal supervisor (current) use of opiate analgesic - Allergy status to other antibiotic agents - Post-traumatic stress disorder, unspecified - Allergy status to penicillin - Chronic obstructive pulmonary disease, unspecified - Dizziness and giddiness INPATIENT VISIT TRACKING (12 MO.) No inpatient visits to display in this time frame [email or web address]
[2022-11-09] MEDS ORDERED: GAVILYTE-G SO4000 ML PO (12:09)
[2022-11-09] MEDS ORDERED: ONDANSETRON ODT8 MG PO (12:44)
[2022-11-09] MEDS ORDERED: VENTOLIN HFA18 GM INH (12:44)
[2022-11-09] MEDS ORDERED: PREDNISONE20 MG PO (12:44)
== END 2022-11-09 13:06 | disposition home or self-care (01) ==
LOC: ED 11:47
DX: J44.1 Chronic obstructive pulmonary disease with (acute) exacerbation (principal); K21.9 Gastro-esophageal reflux disease without esophagitis; E11.9 Type 2 diabetes mellitus without complications; Z88.0 Allergy status to penicillin; Z88.8 Allergy status to other drugs, medicaments and biological substances; Z79.899 Other long term (current) drug therapy; Z20.822 Contact with and (suspected) exposure to COVID-19
CPT/HCPCS: 87502; 94640; 94664; 99285-25; A9270; C9803; J7512; U0003

== ENCOUNTER 2023-02-22 13:29 | Emergency (ER) | payer OTHER ==
[~2023-02-22] VITALS: Ht 167.6 cm; Wt 96.8 kg
[~2023-02-22 13:29] MED LIST changes: +GAVILYTE-G SO4000 ML PO; +ONDANSETRON ODT8 MG PO
--- OUTSIDE RECORDS SUMMARY | 2023-02-22 13:32 | XMS ---
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 - Patient with suicidal and/or homicidal ideations eloped. - Patient eloped with IV in place. Details: Patient LWBS. CRITERIA MET - [facility] CARE PROVIDERS -Kristie- Dentist: Residential Youth Counselor [facility] PHONE: [phone] FUENTES SAUNDERS 04/21/2019-Current PHONE: [phone] AMNA SABILLON [facility] 02/06/2021-Current PHONE: [phone] Juanpablo Le Community Health Worker 11/02/2019-Current PHONE: [phone] [facility] Current PHONE: Unknown Care Guidelines exist for the following facilities: [facility] ( 01/02/2021 ) [facility] ( 05/25/2019 ) Care History Medical/Surgical 11/21/2021 [facility] - CHW CONTACTED PCP OFFICE- DISCUSSED WITH DAVID NGUYEN THAT THE PATIENT WOULD BENEFIT FROM A ER F/U.PATIENT CURRENTLY RESIDES AT [facility] AND DR SABILLON HAS NOW SET UP A VIRTUAL VISIT WITH PATIENT FOR 11/22/21 AND IN PERSON APPOINTMENT SET UP ON 12/05/21. 07/05/2021 [facility] - PATIENT WAS LAST SEEN BY PCP DR SABILLON ON 06/28/21. F/U APT SCHEDULED . E.D. VISIT COUNT (12 MO.) [address] [facility] [address] [facility] TOTAL 5 NOTE: Visits indicate total known visits. ED/UCC VISIT TRACKING (12 MO.) 02/22/2023 13:30 [facility] [place] TYPE: Emergency COMPLAINT: - BLOOD SUGAR PROBLEM 11/09/2022 11:47 [facility] [place] TYPE: Emergency COMPLAINT: - COUGH DIAGNOSES: - Contact with and (suspected) exposure to COVID-19 - Other roasterman (current) drug therapy - Cough, unspecified - Allergy status to penicillin - Allergy status to other drugs, medicaments and biological substances - Type 2 diabetes mellitus without complications - Gastro-esophageal reflux disease without esophagitis - Chronic obstructive pulmonary disease with (acute) exacerbation 11/04/2022 11:37 [facility] [place] TYPE: Emergency COMPLAINT: - BLOOD SUGAR PROBLEM DIAGNOSES: - Other abnormal glucose - Procedure and treatment not carried out due to patient leaving prior to being seen by health care provider 04/24/2022 00:38 [facility] [place] TYPE: Emergency COMPLAINT: - CHEST PAIN DIAGNOSES: - Parkinson's disease - Type 2 diabetes mellitus with diabetic polyneuropathy - Allergy status to other drugs, medicaments and biological substances - Other chest pain - termite control representative (current) use of oral hypoglycemic drugs - Allergy status to penicillin - Schizophrenia, unspecified - Chronic obstructive pulmonary disease, unspecified - Other roasterman (current) drug therapy - Chest pain, unspecified - Nicotine dependence, unspecified, uncomplicated - Allergy status to serum and vaccine - half-way (current) use of aspirin 04/02/2022 23:55 [facility] [place] TYPE: Emergency COMPLAINT: - WEAKNESS DIAGNOSES: - COVID-19 - Other roasterman (current) drug therapy - Allergy status to other drugs, medicaments and biological substances - termite control representative (current) use of systemic steroids - Gastro-esophageal reflux disease without esophagitis - Anesthesia of skin - Type 2 diabetes mellitus with diabetic neuropathy, unspecified - Chronic obstructive pulmonary disease, unspecified - Bilateral primary osteoarthritis of knee - Parkinson's disease - Allergy status to penicillin - termite control representative (current) use of insulin - Nicotine dependence, unspecified, uncomplicated - termite control representative (current) use of aspirin - Allergy status to serum and vaccine INPATIENT VISIT TRACKING (12 MO.) No inpatient visits to display in this time frame [id number]
[2023-02-22] MEDS ORDERED: NORVASC5 MG PO (16:36)
[2023-02-22] MEDS ORDERED: LANTUS100 UNITS/ SUB-Q (16:36)
== END 2023-02-22 16:58 | disposition home or self-care (01) ==
LOC: ED 13:29
DX: E11.65 Type 2 diabetes mellitus with hyperglycemia (principal); R03.0 Elevated blood-pressure reading, without diagnosis of hypertension; F43.10 Post-traumatic stress disorder, unspecified; J44.9 Chronic obstructive pulmonary disease, unspecified; K21.9 Gastro-esophageal reflux disease without esophagitis; G20 Parkinson's disease; E11.42 Type 2 diabetes mellitus with diabetic polyneuropathy; Z88.0 Allergy status to penicillin; Z88.8 Allergy status to other drugs, medicaments and biological substances; Z88.1 Allergy status to other antibiotic agents; Z79.899 Other long term (current) drug therapy; Z79.4 Long term (current) use of insulin
CPT/HCPCS: 36415; 71045; 80053; 81001; 85025; 96361; 96374; 99284-25; J1815; J2405; J7030

== ENCOUNTER 2023-04-19 15:23 | Emergency (ER) | payer OTHER ==
[~2023-04-19] VITALS: Ht 167.6 cm; Wt 94.3 kg
[~2023-04-19 15:23] MED LIST changes: +NORVASC5 MG PO
--- OUTSIDE RECORDS SUMMARY | 2023-04-19 15:26 | XMS ---
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 - Patient with suicidal and/or homicidal ideations eloped. - Patient eloped with IV in place. Details: Patient LWBS. CRITERIA MET - PDMP - [facility] [place] - 2 Visits in 30 Days CARE PROVIDERS -Kristie- Dentist: Operating Room Tech [facility] PHONE: [phone] FUENTES SAUNDERS 04/21/2019-Current PHONE: [phone] AMNA SABILLON [facility] 02/06/2021-Current PHONE: [phone] Juanpablo Le Community Health Worker 11/02/2019-Current PHONE: [phone] Wm Milton Supervisor Compressed Yeast/Veterinary Toxicologist 11/18/2022-Current PHONE: [phone] [facility] Current PHONE: Unknown Care Guidelines exist for the following facilities: [facility] ( 01/02/2021 ) [employer] [facility] ( 05/25/2019 ) Care History Medical/Surgical 11/21/2021 [facility] - W CONTACTED PCP OFFICE- DISCUSSED WITH DAVID NGUYEN THAT THE PATIENT WOULD BENEFIT FROM A ER F/U.PATIENT CURRENTLY RESIDES AT [facility] AND DR SABILLON HAS NOW SET UP A VIRTUAL VISIT WITH PATIENT FOR 11/22/21 AND IN PERSON APPOINTMENT SET UP ON 12/05/21. 07/05/2021 [facility] - PATIENT WAS LAST SEEN BY PCP DR SABILLON ON 06/28/21. F/U APT SCHEDULED . Consuelo VISIT COUNT (12 MO.) 6 [facility] TOTAL 6 NOTE: Visits indicate total known visits. ED/UCC VISIT TRACKING (12 MO.) 04/19/2023 15:24 [facility] [place] TYPE: Emergency COMPLAINT: - POSS R LEG BLOODCLOT 04/13/2023 09:53 [facility] [place] TYPE: Emergency COMPLAINT: - WOUND ON ABD 02/22/2023 13:30 [facility] [place] TYPE: Emergency COMPLAINT: - BLOOD SUGAR PROBLEM DIAGNOSES: - Allergy status to other antibiotic agents - Allergy status to other drugs, medicaments and biological substances - Allergy status to penicillin - Chronic obstructive pulmonary disease, unspecified - Elevated blood-pressure reading, without diagnosis of hypertension - Gastro-esophageal reflux disease without esophagitis - long-term (current) use of insulin - Other intermodal customer service (current) drug therapy - Parkinson's disease - Post-traumatic stress disorder, unspecified - Type 2 diabetes mellitus with diabetic polyneuropathy - Type 2 diabetes mellitus with hyperglycemia - Weakness 11/09/2022 11:47 [facility] [place] TYPE: Emergency COMPLAINT: - COUGH DIAGNOSES: - Allergy status to other drugs, medicaments and biological substances - Allergy status to penicillin - Chronic obstructive pulmonary disease with (acute) exacerbation - Contact with and (suspected) exposure to COVID-19 - Cough, unspecified - Gastro-esophageal reflux disease without esophagitis - Other intermediate (current) drug therapy - Type 2 diabetes mellitus without complications 11/04/2022 11:37 [facility] [place] TYPE: Emergency COMPLAINT: - BLOOD SUGAR PROBLEM DIAGNOSES: - Other abnormal glucose - Procedure and treatment not carried out due to patient leaving prior to being seen by health care provider 04/24/2022 00:38 [facility] [place] TYPE: Emergency COMPLAINT: - CHEST PAIN DIAGNOSES: - Allergy status to other drugs, medicaments and biological substances - Allergy status to penicillin - Allergy status to serum and vaccine - Chest pain, unspecified - Chronic obstructive pulmonary disease, unspecified - long-term (current) use of aspirin - joint terminal attack controller (current) use of oral hypoglycemic drugs - Nicotine dependence, unspecified, uncomplicated - Other chest pain - Other intermediate (current) drug therapy - Parkinson's disease - Schizophrenia, unspecified - Type 2 diabetes mellitus with diabetic polyneuropathy INPATIENT VISIT TRACKING (12 MO.) No inpatient visits to display in this time frame [id number]
[2023-04-19] MEDS ORDERED: JARDIANCE10 MG PO (15:36)
[2023-04-19] MEDS ORDERED: BACTRIM DS TAB1 EACH PO (16:46)
[2023-04-19 16:56] VITALS: BP 169/84
== END 2023-04-19 16:57 | disposition home or self-care (01) ==
LOC: ED 15:23
DX: L03.115 Cellulitis of right lower limb (principal); E11.42 Type 2 diabetes mellitus with diabetic polyneuropathy; J44.9 Chronic obstructive pulmonary disease, unspecified; G20 Parkinson's disease; F17.200 Nicotine dependence, unspecified, uncomplicated; Z79.899 Other long term (current) drug therapy; Z79.82 Long term (current) use of aspirin; Z79.4 Long term (current) use of insulin; Z88.0 Allergy status to penicillin; Z88.7 Allergy status to serum and vaccine; Z88.8 Allergy status to other drugs, medicaments and biological substances
CPT/HCPCS: 93971; 99283-25

== ENCOUNTER 2023-07-13 09:52 | Emergency (ER) | payer OTHER ==
[~2023-07-13] VITALS: Ht 167.6 cm; Wt 90.3 kg
--- OUTSIDE RECORDS SUMMARY | ~2023-07-13 | XMS | Continuity of Care Document ---
Demographics + + + | Address | [address] | | | [place] [address] | + + + | Preferred Language | Unknown | + + + | Marital Status | Never | + + + | Jew Affiliation | Unknown | + + + | Race | White | + + + | Ethnic Group | Not or | + + + Author + + + | Author | [facility] | + + + | Organization | [facility] | + + + | Address | [address] | | | [place] [address] | + + + | Phone | | + + + Care Team Providers + + + + | Care Saw Feeder Name | Role | Phone | + + + + Unavailable | Unavailable | + + + + Unavailable | Unavailable | + + + + Unavailable | Unavailable | + + + + Unavailable | Unavailable | + + + + Allergies and Intolerances + + + + + + | date | description | facility | reaction | severity | + + + + + + | (no date) | Bupropion | [facility] | (no reaction) | (no severity) | [facility] | | + + + + + + | (no date) | Thiothixene | [facility] | (no reaction) | (no severity) | [facility] | | + + + + + + | (no date) | Olanzapine | [facility] | (no reaction) | (no severity) | [facility] | | + + + + + + | (no date) | Lisinopril | [facility] | (no reaction) | (no severity) | [facility] | | | + + + + + + | (no date) | Metformin | [facility] | (no reaction) | (no severity) | [facility] | | | + + + + + + | (no date) | Valproic acid | [facility] | (no reaction) | (no severity) | [facility] | | | + + + + + + | (no date) | Aspartame | [facility] | (no reaction) | (no severity) | [facility] | | | + + + + + + | (no date) | Aspartame | [facility] | (no reaction) | (no severity) | | [facility] | | + + + + + + | (no date) | Valproic acid | [facility] | (no reaction) | (no severity) | [facility] | | + + + + + + | (no date) | Carbamazepine | [facility] | (no reaction) | (no severity) | [facility] | | + + + + + + | (no date) | Clonazepam | [facility] | (no reaction) | (no severity) | | [facility] | | | + + + + + + | (no date) | Divalproex | [facility] | (no reaction) | (no severity) | | | sodium | [facility] | | | + + + + + + | (no date) | Lisinopril | [facility] | (no reaction) | (no severity) | | [facility] | | | + + + + + + | (no date) | Ampicillin | [facility] | (no reaction) | (no severity) | | [facility] | | | + + + + + + | (no date) | Sertraline | [facility] | (no reaction) | (no severity) | | [facility] | | + + + + + + | (no date) | Pioglitazone | [facility] | (no reaction) | (no severity) | | [facility] | | + + + + + + | (no date) | Pioglitazone | [facility] | (no reaction) | (no severity) | | [facility] | | + + + + + + | (no date) | Carbamazepine | [facility] | (no reaction) | (no severity) | | [facility] | | + + + + + + | (no date) | Sertraline | [facility] | (no reaction) | (no severity) | | [facility] | | + + + + + + | (no date) | Thiothixene | [facility] | (no reaction) | (no severity) | | [facility] | | + + + + + + | (no date) | Carbamazepine | [facility] | (no reaction) | (no severity) | | [facility] | | | + + + + + + | (no date) | Clonazepam | [facility] | (no reaction) | (no severity) | | [facility] | | | + + + + + + | (no date) | Bupropion | [facility] | (no reaction) | (no severity) | | [facility] | | + + + + + + | (no date) | Bupropion | [facility] | (no reaction) | (no severity) | | [facility] | | | + + + + + + | (no date) | Divalproex | [facility] | (no reaction) | (no severity) | | | sodium | [facility] | | | + + + + + + | (no date) | Clonazepam | [facility] | (no reaction) | (no severity) | | [facility] | | | + + + + + + | (no date) | Olanzapine | [facility] | (no reaction) | (no severity) | | [facility] | | | + + + + + + | (no date) | Valproic acid | [facility] | (no reaction) | (no severity) | | [facility] | | + + + + + + | (no date) | Divalproex | [facility] | (no reaction) | (no severity) | | | sodium | [facility] | | | + + + + + + | (no date) | Metformin | [facility] | (no reaction) | (no severity) | | [facility] | | | + + + + + + | (no date) | Penicillin | [facility] | (no reaction) | (no severity) | | [facility] | | + + + + + + | (no date) | Thiothixene | [facility] | (no reaction) | (no severity) | | [facility] | | + + + + + + | (no date) | Ampicillin | [facility] | (no reaction) | (no severity) | | [facility] | | + + + + + + | (no date) | Penicillin | [facility] | (no reaction) | (no severity) | | [facility] | | + + + + + + | (no date) | Ampicillin | [facility] | (no reaction) | (no severity) | | [facility] | | + + + + + + | (no date) | Metformin | [facility] | (no reaction) | (no severity) | | [facility] | | + + + + + + | (no date) | Lisinopril | [facility] | (no reaction) | (no severity) | | [facility] | | | + + + + + + | (no date) | Penicillin | [facility] | (no reaction) | (no severity) | | [facility] | | | + + + + + + | (no date) | Olanzapine | [facility] | (no reaction) | (no severity) | | [facility] | | + + + + + + | (no date) | Penicillin | [facility] | (no reaction) | (no severity) | | [facility] | | + + + + + + | (no date) | Sertraline | [facility] | (no reaction) | (no severity) | | [facility] | | + + + + + + | (no date) | Pioglitazone | [facility] | (no reaction) | (no severity) | | [facility] | | | + + + + + + | (no date) | Aspartame | [facility] | (no reaction) | (no severity) | | [facility] | | | + + + + + + Encounters No information. Functional Status No information. Immunizations No information. Medications + + + + | date | description | facility | + + + + | 2022-11-04 00:00 | CETIRIZINE HCL | [facility] | + + + + | 2022-11-16 00:00 | CETIRIZINE HCL | [facility] | + + + + | 2023-02-22 00:00 | CETIRIZINE HCL | [facility] | + + + + | 2023-04-13 00:00 | CETIRIZINE HCL | [facility] | + + + + | 2023-04-19 00:00 | CETIRIZINE HCL | [facility] | + + + + | 2023-04-25 00:00 | CETIRIZINE HCL | [facility] | + + + + | 2023-04-28 00:00 | CETIRIZINE HCL | [facility] | + + + + | 2022-11-04 00:00 | LISINOPRIL | [facility] | + + + + | 2022-11-16 00:00 | LISINOPRIL | [facility] | + + + + | 2023-02-22 00:00 | LISINOPRIL | [facility] | + + + + | 2023-04-13 00:00 | LISINOPRIL | [facility] | + + + + | 2023-04-19 00:00 | LISINOPRIL | [facility] | + + + + | 2023-04-25 00:00 | LISINOPRIL | [facility] | + + + + | 2023-04-28 00:00 | LISINOPRIL | [facility] | + + + + | 2022-11-04 00:00 | OXYCODONE HCL | [facility] | + + + + | 2022-11-16 00:00 | OXYCODONE HCL | [facility] | + + + + | 2023-02-22 00:00 | OXYCODONE HCL | [facility] | + + + + | 2023-04-13 00:00 | OXYCODONE HCL | [facility] | + + + + | 2023-04-19 00:00 | OXYCODONE HCL | [facility] | + + + + | 2023-04-25 00:00 | OXYCODONE HCL | [facility] | + + + + | 2023-04-28 00:00 | OXYCODONE HCL | [facility] | + + + + | 2022-11-04 00:00 | RIVAROXABAN | [facility] | + + + + | 2022-11-16 00:00 | RIVAROXABAN | [facility] | + + + + | 2023-02-22 00:00 | RIVAROXABAN | [facility] | + + + + | 2023-04-13 00:00 | RIVAROXABAN | [facility] | + + + + | 2023-04-19 00:00 | RIVAROXABAN | [facility] | + + + + | 2023-04-25 00:00 | RIVAROXABAN | [facility] | + + + + | 2023-04-28 00:00 | RIVAROXABAN | [facility] | + + + + | 2022-11-04 00:00 | IPRATROPIUM/ALBUTEROL | [facility] | | | SULFATE | | + + + + | 2022-11-16 00:00 | IPRATROPIUM/ALBUTEROL | [facility] | | | SULFATE | | + + + + | 2023-02-22 00:00 | IPRATROPIUM/ALBUTEROL | [facility] | | | SULFATE | | + + + + | 2023-04-13 00:00 | IPRATROPIUM/ALBUTEROL | [facility] | | | SULFATE | | + + + + | 2023-04-19 00:00 | IPRATROPIUM/ALBUTEROL | [facility] | | | SULFATE | | + + + + | 2023-04-25 00:00 | IPRATROPIUM/ALBUTEROL | [facility] | | | SULFATE | | + + + + | 2023-04-28 00:00 | IPRATROPIUM/ALBUTEROL | [facility] | | | SULFATE | | + + + + | 2023-04-19 00:00 | EMPAGLIFLOZIN | [facility] | + + + + | 2023-04-25 00:00 | EMPAGLIFLOZIN | [facility] | + + + + | 2023-04-28 00:00 | EMPAGLIFLOZIN | [facility] | + + + + | 2022-11-04 00:00 | BREXPIPRAZOLE | [facility] | + + + + | 2022-11-16 00:00 | BREXPIPRAZOLE | [facility] | + + + + | 2023-02-22 00:00 | BREXPIPRAZOLE | [facility] | + + + + | 2023-04-13 00:00 | BREXPIPRAZOLE | [facility] | + + + + | 2023-04-19 00:00 | BREXPIPRAZOLE | [facility] | + + + + | 2023-04-25 00:00 | BREXPIPRAZOLE | [facility] | + + + + | 2023-04-28 00:00 | BREXPIPRAZOLE | [facility] | + + + + | 2022-11-04 00:00 | Insulin | [facility] | | | Vannessa,Hum.rec.anlog | | + + + + | 2022-11-16 00:00 | Insulin | [facility] | | | Glalaurae,Hum.rec.anlog | | + + + + | 2023-02-22 00:00 | Insulin | [facility] | | | Glargine,Hum.rec.anlog | | + + + + | 2023-04-13 00:00 | Insulin | [facility] | | | Glargine,Hum.rec.anlog | | + + + + | 2023-04-19 00:00 | Insulin | [facility] | | | Glargine,Hum.rec.anlog | | + + + + | 2023-04-25 00:00 | Insulin | [facility] | | | GlargregeHum.rec.anlog | | + + + + | 2023-04-28 00:00 | Insulin | [facility] | | | Hortencia Hurd | | + + + + | 2022-11-04 00:00 | PAROXETINE HCL | [facility] | + + + + | 2022-11-16 00:00 | PAROXETINE HCL | [facility] | + + + + | 2023-02-22 00:00 | PAROXETINE HCL | [facility] | + + + + | 2023-04-13 00:00 | PAROXETINE HCL | [facility] | + + + + | 2023-04-19 00:00 | PAROXETINE HCL | [facility] | + + + + | 2023-04-25 00:00 | PAROXETINE HCL | [facility] | + + + + | 2023-04-28 00:00 | PAROXETINE HCL | [facility] | + + + + | 2022-11-04 00:00 | clonAZEpam | [facility] | + + + + | 2022-11-16 00:00 | clonAZEpam | [facility] | + + + + | 2023-02-22 00:00 | clonAZEpam | [facility] | + + + + | 2023-04-13 00:00 | clonAZEpam | [facility] | + + + + | 2023-04-19 00:00 | clonAZEpam | [facility] | + + + + | 2023-04-25 00:00 | clonAZEpam | [facility] | + + + + | 2023-04-28 00:00 | clonAZEpam | [facility] | + + + + | 2022-11-04 00:00 | OMEPRAZOLE | [facility] | + + + + | 2022-11-16 00:00 | OMEPRAZOLE | [facility] | + + + + | 2023-02-22 00:00 | OMEPRAZOLE | [facility] | + + + + | 2023-04-13 00:00 | OMEPRAZOLE | [facility] | + + + + | 2023-04-19 00:00 | OMEPRAZOLE | [facility] | + + + + | 2023-04-25 00:00 | OMEPRAZOLE | [facility] | + + + + | 2023-04-28 00:00 | OMEPRAZOLE | [facility] | + + + + | 2022-11-04 00:00 | PRIMIDONE | [facility] | + + + + | 2022-11-16 00:00 | PRIMIDONE | [facility] | + + + + | 2023-02-22 00:00 | PRIMIDONE | [facility] | + + + + | 2023-04-13 00:00 | PRIMIDONE | [facility] | + + + + | 2023-04-19 00:00 | PRIMIDONE | [facility] | + + + + | 2023-04-25 00:00 | PRIMIDONE | [facility] | + + + + | 2023-04-28 00:00 | PRIMIDONE | [facility] | + + + + | 2022-11-04 00:00 | SIMVASTATIN | [facility] | + + + + | 2022-11-16 00:00 | SIMVASTATIN | [facility] | + + + + | 2023-02-22 00:00 | SIMVASTATIN | [facility] | + + + + | 2023-04-13 00:00 | SIMVASTATIN | [facility] | + + + + | 2023-04-19 00:00 | SIMVASTATIN | [facility] | + + + + | 2023-04-25 00:00 | SIMVASTATIN | [facility] | + + + + | 2023-04-28 00:00 | SIMVASTATIN | [facility] | + + + + | 2022-11-04 00:00 | SULINDAC | [facility] | + + + + | 2022-11-16 00:00 | SULINDAC | [facility] | + + + + | 2023-02-22 00:00 | SULINDAC | [facility] | + + + + | 2023-04-13 00:00 | SULINDAC | [facility] | + + + + | 2023-04-19 00:00 | SULINDAC | [facility] | + + + + | 2023-04-25 00:00 | SULINDAC | [facility] | + + + + | 2023-04-28 00:00 | SULINDAC | [facility] | + + + + | 2022-11-04 00:00 | ACETAMINOPHEN | [facility] | + + + + | 2022-11-16 00:00 | ACETAMINOPHEN | [facility] | + + + + | 2023-02-22 00:00 | ACETAMINOPHEN | [facility] | + + + + | 2023-04-13 00:00 | ACETAMINOPHEN | [facility] | + + + + | 2023-04-19 00:00 | ACETAMINOPHEN | [facility] | + + + + | 2023-04-25 00:00 | ACETAMINOPHEN | [facility] | + + + + | 2023-04-28 00:00 | ACETAMINOPHEN | [facility] | + + + + | 2022-11-04 00:00 | Melatonin | [facility] | + + + + | 2022-11-16 00:00 | Melatonin | [facility] | + + + + | 2023-02-22 00:00 | Melatonin | [facility] | + + + + | 2023-04-13 00:00 | Melatonin | [facility] | + + + + | 2023-04-19 00:00 | Melatonin | [facility] | + + + + | 2023-04-25 00:00 | Melatonin | [facility] | + + + + | 2023-04-28 00:00 | Melatonin | [facility] | + + + + | 2022-11-04 00:00 | PAROXETINE HCL | [facility] | + + + + | 2022-11-16 00:00 | PAROXETINE HCL | [facility] | + + + + | 2023-02-22 00:00 | PAROXETINE HCL | [facility] | + + + + | 2023-04-13 00:00 | PAROXETINE HCL | [facility] | + + + + | 2023-04-19 00:00 | PAROXETINE HCL | [facility] | + + + + | 2023-04-25 00:00 | PAROXETINE HCL | [facility] | + + + + | 2023-04-28 00:00 | PAROXETINE HCL | [facility] | + + + + | 2022-11-04 00:00 | PRAZOSIN HCL | [facility] | + + + + | 2022-11-16 00:00 | PRAZOSIN HCL | [facility] | + + + + | 2023-02-22 00:00 | PRAZOSIN HCL | [facility] | + + + + | 2023-04-13 00:00 | PRAZOSIN HCL | [facility] | + + + + | 2023-04-19 00:00 | PRAZOSIN HCL | [facility] | + + + + | 2023-04-25 00:00 | PRAZOSIN HCL | [facility] | + + + + | 2023-04-28 00:00 | PRAZOSIN HCL | [facility] | + + + + | 2022-11-04 00:00 | BISACODYL | [facility] | + + + + | 2022-11-16 00:00 | BISACODYL | [facility] | + + + + | 2023-02-22 00:00 | BISACODYL | [facility] | + + + + | 2023-04-13 00:00 | BISACODYL | [facility] | + + + + | 2023-04-19 00:00 | BISACODYL | [facility] | + + + + | 2023-04-25 00:00 | BISACODYL | [facility] | + + + + | 2023-04-28 00:00 | BISACODYL | [facility] | + + + + | 2022-04-03 00:00 | ACETAMINOPHEN | [facility] | + + + + | 2022-04-03 00:00 | ACETAMINOPHEN | [facility] | + + + + | 2022-04-03 00:00 | ACETAMINOPHEN | [facility] | + + + + | 2022-11-04 00:00 | PAROXETINE HCL | [facility] | + + + + | 2022-11-16 00:00 | PAROXETINE HCL | [facility] | + + + + | 2023-02-22 00:00 | PAROXETINE HCL | [facility] | + + + + | 2023-04-13 00:00 | PAROXETINE HCL | [facility] | + + + + | 2023-04-19 00:00 | PAROXETINE HCL | [facility] | + + + + | 2023-04-25 00:00 | PAROXETINE HCL | [facility] | + + + + | 2023-04-28 00:00 | PAROXETINE HCL | [facility] | + + + + | 2023-02-22 00:00 | AMLODIPINE BESYLATE | [facility] | + + + + | 2023-02-22 00:00 | AMLODIPINE BESYLATE | [facility] | + + + + | 2022-11-04 00:00 | MAGNESIUM HYDROXIDE/AL | [facility] | | | HYDROX | | + + + + | 2022-11-16 00:00 | MAGNESIUM HYDROXIDE/AL | [facility] | | | HYDROX | | + + + + | 2023-02-22 00:00 | MAGNESIUM HYDROXIDE/AL | [facility] | | | HYDROX | | + + + + | 2023-04-13 00:00 | MAGNESIUM HYDROXIDE/AL | [facility] | | | HYDROX | | + + + + | 2023-04-19 00:00 | MAGNESIUM HYDROXIDE/AL | [facility] | | | HYDROX | | + + + + | 2023-04-25 00:00 | MAGNESIUM HYDROXIDE/AL | [facility] | | | HYDROX | | + + + + | 2023-04-28 00:00 | MAGNESIUM HYDROXIDE/AL | [facility] | | | HYDROX | | + + + + | 2022-11-04 00:00 | CLINDAMYCIN HCL | [facility] | + + + + | 2022-11-16 00:00 | CLINDAMYCIN HCL | [facility] | + + + + | 2023-02-22 00:00 | CLINDAMYCIN HCL | [facility] | + + + + | 2023-04-13 00:00 | CLINDAMYCIN HCL | [facility] | + + + + | 2023-04-19 00:00 | CLINDAMYCIN HCL | [facility] | + + + + | 2023-04-25 00:00 | CLINDAMYCIN HCL | [facility] | + + + + | 2023-04-28 00:00 | CLINDAMYCIN HCL | [facility] | + + + + | 2022-11-04 00:00 | ZIPRASIDONE HCL | [facility] | + + + + | 2022-11-16 00:00 | ZIPRASIDONE HCL | [facility] | + + + + | 2023-02-22 00:00 | ZIPRASIDONE HCL | [facility] | + + + + | 2023-04-13 00:00 | ZIPRASIDONE HCL | [facility] | + + + + | 2023-04-19 00:00 | ZIPRASIDONE HCL | [facility] | + + + + | 2023-04-25 00:00 | ZIPRASIDONE HCL | [facility] | + + + + | 2023-04-28 00:00 | ZIPRASIDONE HCL | [facility] | + + + + | 2023-02-22 00:00 | INSULIN GLARGINE | [facility] | + + + + | 2023-02-22 00:00 | INSULIN GLARGINE | [facility] | + + + + | 2022-11-04 00:00 | FAMOTIDINE | [facility] | + + + + | 2022-11-16 00:00 | FAMOTIDINE | [facility] | + + + + | 2022-11-04 00:00 | GABAPENTIN | [facility] | + + + + | 2022-11-16 00:00 | GABAPENTIN | [facility] | + + + + | 2023-02-22 00:00 | GABAPENTIN | [facility] | + + + + | 2023-04-13 00:00 | GABAPENTIN | [facility] | + + + + | 2023-04-19 00:00 | GABAPENTIN | [facility] | + + + + | 2023-04-25 00:00 | GABAPENTIN | [facility] | + + + + | 2023-04-28 00:00 | GABAPENTIN | [facility] | + + + + | 2022-11-04 00:00 | GEMFIBROZIL | [facility] | + + + + | 2022-11-16 00:00 | GEMFIBROZIL | [facility] | + + + + | 2023-02-22 00:00 | GEMFIBROZIL | [facility] | + + + + | 2023-04-13 00:00 | GEMFIBROZIL | [facility] | + + + + | 2023-04-19 00:00 | GEMFIBROZIL | [facility] | + + + + | 2023-04-25 00:00 | GEMFIBROZIL | [facility] | + + + + | 2023-04-28 00:00 | GEMFIBROZIL | [facility] | + + + + | 2022-11-09 00:00 | ONDANSETRON | [facility] | + + + + | 2022-11-09 00:00 | ONDANSETRON | [facility] | + + + + | 2022-11-09 00:00 | ONDANSETRON | [facility] | + + + + | 2022-11-04 00:00 | PRAZOSIN HCL | [facility] | + + + + | 2022-11-16 00:00 | PRAZOSIN HCL | [facility] | + + + + | 2023-02-22 00:00 | PRAZOSIN HCL | [facility] | + + + + | 2023-04-13 00:00 | PRAZOSIN HCL | [facility] | + + + + | 2023-04-19 00:00 | PRAZOSIN HCL | [facility] | + + + + | 2023-04-25 00:00 | PRAZOSIN HCL | [facility] | + + + + | 2023-04-28 00:00 | PRAZOSIN HCL | [facility] | + + + + | 2022-11-09 00:00 | predniSONE | [facility] | + + + + | 2022-11-04 00:00 | FUROSEMIDE | [facility] | + + + + | 2022-11-16 00:00 | FUROSEMIDE | [facility] | + + + + | 2023-02-22 00:00 | FUROSEMIDE | [facility] | + + + + | 2023-04-13 00:00 | FUROSEMIDE | [facility] | + + + + | 2023-04-19 00:00 | FUROSEMIDE | [facility] | + + + + | 2023-04-25 00:00 | FUROSEMIDE | [facility] | + + + + | 2023-04-28 00:00 | FUROSEMIDE | [facility] | + + + + | 2022-11-04 00:00 | HALOPERIDOL | [facility] | + + + + | 2022-11-16 00:00 | HALOPERIDOL | [facility] | + + + + | 2023-02-22 00:00 | HALOPERIDOL | [facility] | + + + + | 2023-04-13 00:00 | HALOPERIDOL | [facility] | + + + + | 2023-04-19 00:00 | HALOPERIDOL | [facility] | + + + + | 2023-04-25 00:00 | HALOPERIDOL | [facility] | + + + + | 2023-04-28 00:00 | HALOPERIDOL | [facility] | + + + + | 2022-11-04 00:00 | ASPIRIN | [facility] | + + + + | 2022-11-16 00:00 | ASPIRIN | [facility] | + + + + | 2023-02-22 00:00 | ASPIRIN | [facility] | + + + + | 2023-04-13 00:00 | ASPIRIN | [facility] | + + + + | 2023-04-19 00:00 | ASPIRIN | [facility] | + + + + | 2023-04-25 00:00 | ASPIRIN | [facility] | + + + + | 2023-04-28 00:00 | ASPIRIN | [facility] | + + + + | 2021-11-10 00:00 | Scopolamine | [facility] | + + + + | 2021-11-10 00:00 | Scopolamine | [facility] | + + + + | 2021-11-10 00:00 | Scopolamine | [facility] | + + + + | 2022-11-04 00:00 | INSULIN ASPART | [facility] | + + + + | 2022-11-16 00:00 | INSULIN ASPART | [facility] | + + + + | 2023-02-22 00:00 | INSULIN ASPART | [facility] | + + + + | 2023-04-13 00:00 | INSULIN ASPART | [facility] | + + + + 2023-04-19 00:00 | INSULIN ASPART | [facility] | + + + + | 2023-04-25 00:00 | INSULIN ASPART | [facility] | + + + + | 2023-04-28 00:00 | INSULIN ASPART | [facility] | + + + + | 2022-11-04 00:00 | Insulin Aspart | [facility] | + + + + | 2022-11-16 00:00 | Insulin Aspart | [facility] | + + + + | 2023-02-22 00:00 | Insulin Aspart | [facility] | + + + + | 2023-04-13 00:00 | Insulin Aspart | [facility] | + + + + | 2023-04-19 00:00 | Insulin Aspart | [facility] | + + + + | 2023-04-25 00:00 | Insulin Aspart | [facility] | + + + + | 2023-04-28 00:00 | Insulin Aspart | [facility] | + + + + | 2022-11-04 00:00 | POTASSIUM CHLORIDE | [facility] | + + + + | 2022-11-16 00:00 | POTASSIUM CHLORIDE | [facility] | + + + + | 2023-02-22 00:00 | POTASSIUM CHLORIDE | [facility] | + + + + | 2023-04-13 00:00 | POTASSIUM CHLORIDE | [facility] | + + + + | 2023-04-19 00:00 | POTASSIUM CHLORIDE | [facility] | + + + + | 2023-04-25 00:00 | POTASSIUM CHLORIDE | [facility] | + + + + | 2023-04-28 00:00 | POTASSIUM CHLORIDE | [facility] | + + + + | 2022-11-04 00:00 | CARBIDOPA/LEVODOPA | [facility] | + + + + | 2022-11-16 00:00 | CARBIDOPA/LEVODOPA | [facility] | + + + + | 2023-02-22 00:00 | CARBIDOPA/LEVODOPA | [facility] | + + + + | 2023-04-13 00:00 | CARBIDOPA/LEVODOPA | [facility] | + + + + | 2023-04-19 00:00 | CARBIDOPA/LEVODOPA | [facility] | + + + + | 2023-04-25 00:00 | CARBIDOPA/LEVODOPA | [facility] | + + + + | 2023-04-28 00:00 | CARBIDOPA/LEVODOPA | [facility] | + + + + | 2022-11-04 00:00 | CYCLOBENZAPRINE HCL | [facility] | + + + + | 2022-11-16 00:00 | CYCLOBENZAPRINE HCL | [facility] | + + + + | 2023-02-22 00:00 | CYCLOBENZAPRINE HCL | [facility] | + + + + | 2023-04-13 00:00 | CYCLOBENZAPRINE HCL | [facility] | + + + + | 2023-04-19 00:00 | CYCLOBENZAPRINE HCL | [facility] | + + + + | 2023-04-25 00:00 | CYCLOBENZAPRINE HCL | [facility] | + + + + | 2023-04-28 00:00 | CYCLOBENZAPRINE HCL | [facility] | + + + + | 2022-11-04 00:00 | TRAMADOL HCL | [facility] | + + + + | 2022-11-16 00:00 | TRAMADOL HCL | [facility] | + + + + | 2023-02-22 00:00 | TRAMADOL HCL | [facility] | + + + + | 2023-04-13 00:00 | TRAMADOL HCL | [facility] | + + + + | 2023-04-19 00:00 | TRAMADOL HCL | [facility] | + + + + | 2023-04-25 00:00 | TRAMADOL HCL | [facility] | + + + + | 2023-04-28 00:00 | TRAMADOL HCL | [facility] | + + + + | 2022-11-04 00:00 | IPRATROPIUM BROMIDE | [facility] | + + + + | 2022-11-16 00:00 | IPRATROPIUM BROMIDE | [facility] | + + + + | 2023-02-22 00:00 | IPRATROPIUM BROMIDE | [facility] | + + + + | 2023-04-13 00:00 | IPRATROPIUM BROMIDE | [facility] | + + + + | 2023-04-19 00:00 | IPRATROPIUM BROMIDE | [facility] | + + + + | 2023-04-25 00:00 | IPRATROPIUM BROMIDE | [facility] | + + + + | 2023-04-28 00:00 | IPRATROPIUM BROMIDE | [facility] | + + + + | 2021-06-28 00:00 | | [facility] | | | SULFAMETHOXAZOLE/TRIMETHOPR | | | | IM DS | | + + + + | 2021-06-28 00:00 | | [facility] | | | SULFAMETHOXAZOLE/TRIMETHOPR | | | | IM DS | | + + + + | 2021-06-28 00:00 | | [facility] | | | SULFAMETHOXAZOLE/TRIMETHOPR | | | | IM DS | | + + + + | 2023-04-19 00:00 | | [facility] | | | SULFAMETHOXAZOLE/TRIMETHOPR | | | | IM DS | | + + + + | 2022-11-04 00:00 | HYDROCODONE/APAP | [facility] | | | (10-325MG) | | + + + + | 2022-11-16 00:00 | HYDROCODONE/APAP | [facility] | | | (10-325MG) | | + + + + | 2023-02-22 00:00 | HYDROCODONE/APAP | [facility] | | | (10-325MG) | | + + + + | 2023-04-13 00:00 | HYDROCODONE/APAP | [facility] | | | (10-325MG) | | + + + + | 2023-04-19 00:00 | HYDROCODONE/APAP | [facility] | | | (10-325MG) | | + + + + | 2023-04-25 00:00 | HYDROCODONE/APAP | [facility] | | | (10-325MG) | | + + + + | 2023-04-28 00:00 | HYDROCODONE/APAP | [facility] | | | (10-325MG) | | + + + + | 2022-11-04 00:00 | ALBUTEROL SULFATE | [facility] | + + + + | 2022-11-09 00:00 | ALBUTEROL SULFATE | [facility] | + + + + | 2022-11-09 00:00 | ALBUTEROL SULFATE | [facility] | + + + + | 2022-11-09 00:00 | ALBUTEROL SULFATE | [facility] | + + + + | 2022-11-16 00:00 | ALBUTEROL SULFATE | [facility] | + + + + | 2023-02-22 00:00 | ALBUTEROL SULFATE | [facility] | + + + + | 2023-04-13 00:00 | ALBUTEROL SULFATE | [facility] | + + + + | 2023-04-19 00:00 | ALBUTEROL SULFATE | [facility] | + + + + | 2023-04-25 00:00 | ALBUTEROL SULFATE | [facility] | + + + + | 2023-04-28 00:00 | ALBUTEROL SULFATE | [facility] | + + + + | 2022-11-04 00:00 | BUSPIRONE HCL | [facility] | + + + + | 2022-11-16 00:00 | BUSPIRONE HCL | [facility] | + + + + | 2023-02-22 00:00 | BUSPIRONE HCL | [facility] | + + + + | 2023-04-13 00:00 | BUSPIRONE HCL | [facility] | + + + + | 2023-04-19 00:00 | BUSPIRONE HCL | [facility] | + + + + | 2023-04-25 00:00 | BUSPIRONE HCL | [facility] | + + + + | 2023-04-28 00:00 | BUSPIRONE HCL | [facility] | + + + + | 2022-11-04 00:00 | BENZTROPINE MESYLATE | [facility] | + + + + | 2022-11-16 00:00 | BENZTROPINE MESYLATE | [facility] | + + + + | 2023-02-22 00:00 | BENZTROPINE MESYLATE | [facility] | + + + + | 2023-04-13 00:00 | BENZTROPINE MESYLATE | [facility] | + + + + | 2023-04-19 00:00 | BENZTROPINE MESYLATE | [facility] | + + + + | 2023-04-25 00:00 | BENZTROPINE MESYLATE | [facility] | + + + + | 2023-04-28 00:00 | BENZTROPINE MESYLATE | [facility] | + + + + | 2022-11-04 00:00 | FLUTICASONE/SALMETEROL | [facility] | + + + + | 2022-11-16 00:00 | FLUTICASONE/SALMETEROL | [facility] | + + + + | 2023-02-22 00:00 | FLUTICASONE/SALMETEROL | [facility] | + + + + | 2023-04-13 00:00 | FLUTICASONE/SALMETEROL | [facility] | + + + + | 2023-04-19 00:00 | FLUTICASONE/SALMETEROL | [facility] | + + + + | 2023-04-25 00:00 | FLUTICASONE/SALMETEROL | [facility] | + + + + | 2023-04-28 00:00 | FLUTICASONE/SALMETEROL | [facility] | + + + + | 2022-11-04 00:00 | FLUTICASONE/SALMETEROL | [facility] | + + + + | 2022-11-16 00:00 | FLUTICASONE/SALMETEROL | [facility] | + + + + | 2023-02-22 00:00 | FLUTICASONE/SALMETEROL | [facility] | + + + + | 2023-04-13 00:00 | FLUTICASONE/SALMETEROL | [facility] | + + + + | 2023-04-19 00:00 | FLUTICASONE/SALMETEROL | [facility] | + + + + | 2023-04-25 00:00 | FLUTICASONE/SALMETEROL | [facility] | + + + + | 2023-04-28 00:00 | FLUTICASONE/SALMETEROL | [facility] | + + + + | 2022-11-16 00:00 | PEG 3350/NA | [facility] | | | SULF,BICARB,CL/KCL | | + + + + | 2022-11-04 00:00 | LOPERAMIDE HCL | [facility] | + + + + | 2022-11-16 00:00 | LOPERAMIDE HCL | [facility] | + + + + | 2022-11-04 00:00 | BUPROPION HCL | [facility] | + + + + | 2022-11-16 00:00 | BUPROPION HCL | [facility] | + + + + | 2023-02-22 00:00 | BUPROPION HCL | [facility] | + + + + | 2023-04-13 00:00 | BUPROPION HCL | [facility] | + + + + | 2023-04-19 00:00 | BUPROPION HCL | [facility] | + + + + | 2023-04-25 00:00 | BUPROPION HCL | [facility] | + + + + | 2023-04-28 00:00 | BUPROPION HCL | [facility] | + + + + | 2022-11-04 00:00 | HYDROXYZINE PAMOATE | [facility] | + + + + | 2022-11-16 00:00 | HYDROXYZINE PAMOATE | [facility] | + + + + | 2023-02-22 00:00 | HYDROXYZINE PAMOATE | [facility] | + + + + | 2023-04-13 00:00 | HYDROXYZINE PAMOATE | [facility] | + + + + | 2023-04-19 00:00 | HYDROXYZINE PAMOATE | [facility] | + + + + | 2023-04-25 00:00 | HYDROXYZINE PAMOATE | [facility] | + + + + | 2023-04-28 00:00 | HYDROXYZINE PAMOATE | [facility] | + + + + Problems + + + + | date | description | facility | + + + + | 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 | | + + + + | 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 | | + + + + | 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 | | + + + + | 2021-02-04 00:00 | Injury of head | [facility] | + + + + | 2021-02-04 00:00 | Injury of head | [facility] | + + + + | 2021-02-04 00:00 | Injury of head | [facility] | + + + + | 2021-02-04 00:00 | Contusion of right knee | [facility] | + + + + | 2021-02-04 00:00 | Contusion of right knee | [facility] | + + + + | 2021-02-04 00:00 | Contusion of right knee | [facility] | + + + + | 2021-02-04 00:00 | Fracture of phalanx of toe | [facility] | | | of right foot | | + + + + | 2021-02-04 00:00 | Fracture of phalanx of toe | [facility] | | | of right foot | | + + + + | 2021-02-04 00:00 | Fracture of phalanx of toe | [facility] | | | of right foot | | + + + + | 2021-02-04 00:00 | Fall | [facility] | + + + + | 2021-02-04 00:00 | Fall | [facility] | + + + + | 2021-02-04 00:00 | Fall | [facility] | + + + + | 2021-06-15 00:00 | Exacerbation of chronic | [facility] | | | back pain | | + + + + | 2021-06-15 00:00 | Exacerbation of chronic | [facility] | | | back pain | | + + + + | 2021-06-15 00:00 | Exacerbation of chronic | [facility] | | | back pain | | + + + + | 2021-06-15 00:00 | Non-cardiac chest pain | [facility] | + + + + | 2021-06-15 00:00 | Non-cardiac chest pain | [facility] | + + + + | 2021-06-15 00:00 | Non-cardiac chest pain | [facility] | + + + + | 2021-06-28 00:00 | Urinary tract infection | [facility] | + + + + | 2021-06-28 00:00 | Urinary tract infection | [facility] | + + + + | 2021-06-28 00:00 | Urinary tract infection | [facility] | + + + + | 2021-11-18 00:00 | Respiratory syncytial | [facility] | | | virus bronchitis | | + + + + | 2021-11-18 00:00 | Respiratory syncytial | [facility] | | | virus bronchitis | | + + + + | 2021-11-18 00:00 | Respiratory syncytial | [facility] | | | virus bronchitis | | + + + + | 2021-11-19 00:00 | Acute exacerbation of | [facility] | | | chronic obstructive | | | | pulmonary disease | | + + + + | 2021-11-19 00:00 | Acute exacerbation of | [facility] | | | chronic obstructive | | | | pulmonary disease | | + + + + | 2021-11-19 00:00 | Acute exacerbation of | [facility] | | | chronic obstructive | | | | pulmonary disease | | + + + + | 2021-12-16 00:00 | Viral pharyngitis | [facility] | + + + + | 2021-12-16 00:00 | Viral pharyngitis | [facility] | + + + + | 2021-12-16 00:00 | Viral pharyngitis | [facility] | + + + + | 2022-04-03 00:00 | Infection due to severe | [facility] | | | acute respiratory syndrome | | | | coronavirus 2 (SARS-CoV-2) | | + + + + | 2022-04-03 00:00 | Infection due to severe | [facility] | | | acute respiratory syndrome | | | | coronavirus 2 (SARS-CoV-2) | | + + + + | 2022-04-03 00:00 | Infection due to severe | [facility] | | | acute respiratory syndrome | | | | coronavirus 2 (SARS-CoV-2) | | + + + + | 2022-04-24 00:00 | Chest wall pain | [facility] | + + + + | 2022-04-24 00:00 | Chest wall pain | [facility] | + + + + | 2022-04-24 00:00 | Chest wall pain | [facility] | + + + + | 2022-11-04 00:00 | Patient left without being | [facility] | | | seen | | + + + + | 2022-11-04 00:00 | Patient left without being | [facility] | | | seen | | + + + + | 2022-11-04 00:00 | Patient left without being | [facility] | | | seen | | + + + + | 2023-02-22 00:00 | Poorly controlled diabetes | [facility] | | | mellitus | | + + + + | 2023-02-22 00:00 | Poorly controlled diabetes | [facility] | | | mellitus | | + + + + | 2023-03-19 07:19 | SPINAL STENOSIS, LUMBAR | [facility] | | | REGION WITHOUT NEUROGENIC | | | | [facility] | | + + + + | 2023-04-18 00:00 | SPINAL STENOSIS, LUMBAR | [facility] | | | REGION WITHOUT NEUROGENIC | | | | [facility] | | + + + + | 2023-04-19 00:00 | Cellulitis | [facility] | + + + + | 2023-04-19 15:24 | 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 | | + + + + | 2023-04-19 15:24 | NICOTINE DEPENDENCE, | [facility] | | | UNSPECIFIED, UNCOMPLICATED | | + + + + | 2023-04-19 15:24 | Parkinson's disease | [facility] | + + + + | 2023-04-19 15:24 | CHRONIC OBSTRUCTIVE | [facility] | | | PULMONARY DISEASE, | | | | UNSPECIFIED | | + + + + | 2023-04-19 15:24 | CELLULITIS OF RIGHT LOWER | [facility] | | | LIMB | | + + + + | 2023-04-19 15:24 | COMBINATION OPERATOR (CURRENT) USE OF | [facility] | | | INSULIN | | + + + + | 2023-04-19 15:24 | [facility] (CURRENT) USE OF | [facility] | | | ASPIRIN | | + + + + | 2023-04-19 15:24 | OTHER COMBINATION OPERATOR (CURRENT) | [facility] | | | DRUG THERAPY | | + + + + | 2023-04-19 15:24 | ALLERGY STATUS TO | [facility] | | | PENICILLIN | | + + + + | 2023-04-19 15:24 | ALLERGY STATUS TO SERUM | [facility] | | | AND VACCINE STATUS | | + + + + | 2023-04-19 15:24 | ALLERGY STATUS TO OTH | [facility] | | | DRUG/MEDS/BIOL SUBST STATUS | | | | | | + + + + | 2023-04-25 00:00 | Weakness | [facility] | + + + + | 2023-04-25 10:08 | TYPE 2 DIABETES MELLITUS | [facility] | | | WITHOUT COMPLICATIONS | | + + + + | 2023-04-25 10:08 | Parkinson's disease | [facility] | + + + + | 2023-04-25 10:08 | CHRONIC OBSTRUCTIVE | [facility] | | | PULMONARY DISEASE, | | | | UNSPECIFIED | | + + + + | 2023-04-25 10:08 | GASTRO-ESOPHAGEAL REFLUX | [facility] | | | DISEASE WITHOUT ESOPHAGIT | | + + + + | 2023-04-25 10:08 | Dizziness and giddiness | [facility] | + + + + | 2023-04-25 10:08 | WEAKNESS | [facility] | + + + + | 2023-04-25 10:08 | [facility] (CURRENT) USE OF | [facility] | | | INSULIN | | + + + + | 2023-04-25 10:08 | [facility] (CURRENT) USE OF | [facility] | | | ORAL HYPOGLYCEMIC DRUGS | | + + + + | 2023-04-25 10:08 | OTHER COMBINATION OPERATOR (CURRENT) | [facility] | | | DRUG THERAPY | | + + + + | 2023-04-25 10:08 | ALLERGY STATUS TO | [facility] | | | PENICILLIN | | + + + + | 2023-04-25 10:08 | ALLERGY STATUS TO SERUM | [facility] | | | AND VACCINE STATUS | | + + + + | 2023-04-25 10:08 | ALLERGY STATUS TO OTH | [facility] | | | DRUG/MEDS/BIOL SUBST STATUS | | | | | | + + + + | 2023-04-25 10:08 | ALLERGY TO OTHER FOODS | [facility] | + + + + | 2023-04-28 12:51 | 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, | | + + + + | 2023-04-28 12:51 | NICOTINE DEPENDENCE, | [facility] | | | UNSPECIFIED, UNCOMPLICATED | | + + + + | 2023-04-28 12:51 | Parkinson's disease | [facility] | + + + + | 2023-04-28 12:51 | CHRONIC OBSTRUCTIVE | [facility] | | | PULMONARY DISEASE, | | | | UNSPECIFIED | | + + + + | 2023-04-28 12:51 | PAIN IN LEFT LOWER LEG | [facility] | + + + + | 2023-04-28 12:51 | ALLERGY STATUS TO | [facility] | | | PENICILLIN | | + + + + | 2023-04-28 12:51 | ALLERGY STATUS TO SERUM | [facility] | | | AND VACCINE STATUS | | + + + + | 2023-04-28 12:51 | ALLERGY STATUS TO OTH | [facility] | | | DRUG/MEDS/BIOL SUBST STATUS | | | | | | + + + + | 2023-04-28 12:51 | PRESENCE OF LEFT | [facility] | | | ARTIFICIAL KNEE JOINT | | + + + + Procedures No information. Results/Labs +--------+--------+ +---------+--------+---------+ | test | date | facility | value | unit | notes | +--------+--------+ +---------+--------+---------+ + + | Result panel 1 | + + + + + +-------+ + + | | 2022-11-04 | [facility] | 480 | (missing) | (missing) | | (unavailable | 11:45:08 [facility] | | | | + + + +-------+ + + + + | Result panel 2 | + + + + + +-------+ + + | | 2022-11-04 | [facility] | 480 | (missing) | (missing) | | (unavailable | 11:45:08 [facility] | | | | + + + +-------+ + + + + | Result panel 3 | + + + + + + + + + | | 2022-11-09 | [facility] | NEGATIVE | (missing) | (missing) | | (unavailable | 12::08 | [facility] | | | | + + + + + + + + + | Result panel 4 | + + + + + + + + + | | 2022-11-09 | [facility] | NEGATIVE | (missing) | (missing) | | (unavailable | 12::08 | [facility] | | | | + + + + + + + + + | Result panel 5 | + + + + + + + + + | | 2022-11-09 | [facility] | NEGATIVE | (missing) | (missing) | | (unavailable | 12:05:08 [facility] | | | | + + + + + + + + + | Result panel 6 | + + + + + + + + + | | 2022-11-09 | [facility] | NEGATIVE | (missing) | (missing) | | (unavailable | 12:05:08 [facility] | | | | + + + + + + + + + | Result panel 7 | + + + + + +-------+---------+ + | | 2023-02-22 | [facility] | 417 | mg/dL | (missing) | | (unavailable | 13:42:07 [facility] | | | | + + + +-------+---------+ + + + | Result panel 8 | + + + + + +------+---------+ + | | 2023-02-22 | [facility] | 16 | mg/dL | (missing) | | (unavailable | 13:42:07 [facility] | | | | + + + +------+---------+ + + + | Result panel 9 | + + + + + +--------+---------+ + | | 2023-02-22 | [facility] | 0.94 | mg/dL | (missing) | | (unavailable | 13:42:07 [facility] | | | | + + + +--------+---------+ + + + | Result panel 10 | + + + + + +------+ + + | | 2023-02-22 | [facility] | 69 | (missing) | (missing) | | (unavailable | 13:42:07 [facility] | | | | + + + +------+ + + + + | Result panel 11 | + + + + + +---------+ + + | | 2023-02-22 | [facility] | 17.02 | (missing) | (missing) | | (unavailable | 13:42:07 [facility] | | | | + + + +---------+ + + + + | Result panel 12 | + + + + + +-------+ + + | | 2023-02-22 | [facility] | 134 | (missing) | (missing) | | (unavailable | 13:42:07 [facility] | | | | + + + +-------+ + + + + | Result panel 13 | + + + + + +-------+ + + | | 2023-02-22 | [facility] | 3.5 | (missing) | (missing) | | (unavailable | 13:42:07 [facility] | | | | + + + +-------+ + + + + | Result panel 14 | + + + + + +-------+ + + | | 2023-02-22 | [facility] | 100 | (missing) | (missing) | | (unavailable | 13:42:07 [facility] | | | | + + + +-------+ + + + + | Result panel 15 | + + + + + +------+ + + | | 2023-02-22 | [facility] | 24 | (missing) | (missing) | | (unavailable | 13:42:07 [facility] | | | | + + + +------+ + + + + | Result panel 16 | + + + + + +--------+ + + | | 2023-02-22 | [facility] | 13.5 | (missing) | (missing) | | (unavailable | 13:42:07 [facility] | | | | + + + +--------+ + + + + | Result panel 17 | + + + + + +-------+---------+ + | | 2023-02-22 | [facility] | 9.3 | mg/dL | (missing) | | (unavailable | 13:42:07 [facility] | | | | + + + +-------+---------+ + + + | Result panel 18 | + + + + + +-------+ + + | | 2023-02-22 | [facility] | 6.6 | (missing) | (missing) | | (unavailable | 13:42:07 [facility] | | | | + + + +-------+ + + + + | Result panel 19 | + + + + + +-------+ + + | | 2023-02-22 | [facility] | 3.4 | (missing) | (missing) | | (unavailable | 13:42:07 [facility] | | | | + + + +-------+ + + + + | Result panel 20 | + + + + + +-------+ + + | | 2023-02-22 | [facility] | 3.2 | (missing) | (missing) | | (unavailable | 13:42:07 [facility] | | | | + + + +-------+ + + + + | Result panel 21 | + + + + + +--------+ + + | | 2023-02-22 | [facility] | 1.06 | (missing) | (missing) | | (unavailable | 13:42:07 [facility] | | | | + + + +--------+ + + + + | Result panel 22 | + + + + + +-------+ + + | | 2023-02-22 | [facility] | 0.7 | (missing) | (missing) | | (unavailable | 13:42:07 [facility] | | | | + + + +-------+ + + + + | Result panel 23 | + + + + + +------+ + + | | 2023-02-22 | [facility] | 11 | (missing) | (missing) | | (unavailable | 13:42:07 [facility] | | | | + + + +------+ + + + + | Result panel 24 | + + + + + +------+ + + | | 2023-02-22 | [facility] | 12 | (missing) | (missing) | | (unavailable | 13:42:07 [facility] | | | | + + + +------+ + + + + | Result panel 25 | + + + + + +------+ + + | | 2023-02-22 | [facility] | 83 | (missing) | (missing) | | (unavailable | 13:42:07 [facility] | | | | + + + +------+ + + + + | Result panel 26 | + + + + + +--------+ + + | | 2023-02-22 | [facility] | 12.2 | (missing) | (missing) | | (unavailable | 13:42:07 [facility] | | | | + + + +--------+ + + + + | Result panel 27 | + + + + + +--------+ + + | | 2023-02-22 | [facility] | 5.04 | (missing) | (missing) | | (unavailable | 13:42:07 | [facility] | | | | + + + +--------+ + + + + | Result panel 28 | + + + + + +--------+ + + | | 2023-02-22 | [facility] | 15.2 | (missing) | (missing) | | (unavailable | 13:42:07 | [facility] | | | | + + + +--------+ + + + + | Result panel 29 | + + + + + +--------+ + + | | 2023-02-22 | [facility] | 44.9 | (missing) | (missing) | | (unavailable | 13:42:07 | [facility] | | | | + + + +--------+ + + + + | Result panel 30 | + + + + + +--------+ + + | | 2023-02-22 | [facility] | 89.1 | (missing) | (missing) | | (unavailable | 13:42:07 | [facility] | | | | + + + +--------+ + + + + | Result panel 31 | + + + + + +--------+ + + | | 2023-02-22 | [facility] | 30.2 | (missing) | (missing) | | (unavailable | 13:42:07 | [facility] | | | | + + + +--------+ + + + + | Result panel 32 | + + + + + +--------+ + + | | 2023-02-22 | [facility] | 33.9 | (missing) | (missing) | | (unavailable | 13:42:07 | [facility] | | | | + + + +--------+ + + + + | Result panel 33 | + + + + + +--------+ + + | | 2023-02-22 | [facility] | 13.7 | (missing) | (missing) | | (unavailable | 13:42:07 | [facility] | | | | + + + +--------+ + + + + | Result panel 34 | + + + + + +-------+ + + | | 2023-02-22 | [facility] | 226 | (missing) | (missing) | | (unavailable | 13:42:07 | [facility] | | | | + + + +-------+ + + + + | Result panel 35 | + + + + + +------+ + + | | 2023-02-22 | [facility] | 78 | (missing) | (missing) | | (unavailable | 13:42:07 [facility] | | | | + + + +------+ + + + + | Result panel 36 | + + + + + +------+ + + | | 2023-02-22 | [facility] | 15 | (missing) | (missing) | | (unavailable | 13:42:07 [facility] | | | + + + +------+ + + + + | Result panel 37 | + + + + + +-----+ + + | | 2023-02-22 | [facility] | 6 | (missing) | (missing) | | (unavailable | 13:42:07 [facility] | | | + + + +-----+ + + + + | Result panel 38 | + + + + + +-----+ + + | | 2023-02-22 | [facility] | 1 | (missing) | (missing) | | (unavailable | 13:42:07 [facility] | | | + + + +-----+ + + + + | Result panel 39 | + + + + + + + + + | | 2023-02-22 | [facility] | YELLOW | (missing) | (missing) | | (unavailable | 14:24:07 [facility] | | | + + + + + + + + + | Result panel 40 | + + + + + +---------+ + + | | 2023-02-22 | [facility] | CLEAR | (missing) | (missing) | | (unavailable | 14:24:07 [facility] | | | + + + +---------+ + + + + | Result panel 41 | + + + + + + + + + | | 2023-02-22 | [facility] | >=1000 | (missing) | (missing) | | (unavailable | 14:24:07 [facility] | | | + + + + + + + + + | Result panel 42 | + + + + + + + + + | | 2023-02-22 | [facility] | NEGATIVE | (missing) | (missing) | | (unavailable | 14::07 | [facility] | | | + + + + + + + + + | Result panel 43 | + + + + + +---------+ + + | | 2023-02-22 | [facility] | SMALL | (missing) | (missing) | | (unavailable | 14::07 | [facility] | | | + + + +---------+ + + + + | Result panel 44 | + + + + + +---------+ + + | | 2023-02-22 | [facility] | 1.020 | (missing) | (missing) | | (unavailable | 14::07 [facility] | | | + + + +---------+ + + + + | Result panel 45 | + + + + + + + + + | | 2023-02-22 | [facility] | TRACE-I | (missing) | (missing) | | (unavailable | 14:24:07 [facility] | | | + + + + + + + + + | Result panel 46 | + + + + + +-------+ + + | | 2023-02-22 | [facility] | 7.5 | (missing) | (missing) | | (unavailable | 14:24:07 [facility] | | | + + + +-------+ + + + + | Result panel 47 | + + + + + +-------+ + + | | 2023-02-22 | [facility] | 100 | (missing) | (missing) | | (unavailable | 14:24:07 [facility] | | | + + + +-------+ + + + + | Result panel 48 | + + + + + + + + + | | 2023-02-22 | [facility] | NORMAL | (missing) | (missing) | | (unavailable | 14:24:07 [facility] | | | + + + + + + + + + | Result panel 49 | + + + + + + + + + | | 2023-02-22 | [facility] | NEGATIVE | (missing) | (missing) | | (unavailable | 14:24:07 [facility] | | | + + + + + + + + + | Result panel 50 | + + + + + + + + + | | 2023-02-22 | [facility] | NEGATIVE | (missing) | (missing) | | (unavailable | 14::07 | [facility] | | | + + + + + + + + + | Result panel 51 | + + + + + +-------+ + + | | 2023-02-22 | [facility] | 0-1 | (missing) | (missing) | | (unavailable | 14:24:07 [facility] | | | + + + +-------+ + + + + | Result panel 52 | + + + + + +-------+ + + | | 2023-02-22 | [facility] | 4-6 | (missing) | (missing) | | (unavailable | 14:24:07 [facility] | | | + + + +-------+ + + + + | Result panel 53 | + + + + + + + + + | | 2023-02-22 | [facility] | SQUAMOUS 2+ | (missing) | (missing) | | (unavailable | 14:24:07 [facility] | | | + + + + + + + + + | Result panel 54 | + + + + + + + + + | | 2023-02-22 | [facility] | NONE SEEN | (missing) | (missing) | | (unavailable | 14:24:07 [facility] | | | + + + + + + + + + | Result panel 55 | + + + + + +--------+ + + | | 2023-02-22 | [facility] | RARE | (missing) | (missing) | | (unavailable | 14:24:07 [facility] | | | + + + +--------+ + + + + | Result panel 56 | + + + + + + + + + | | 2023-02-22 | [facility] | NONE SEEN | (missing) | (missing) | | (unavailable | 14:24:07 [facility] | | | + + + + + + + + + | Result panel 57 | + + + + + +------+ + + | | 2023-02-22 | [facility] | No | (missing) | (missing) | | (unavailable | 14:24:07 [facility] | | | + + + +------+ + + + + | Result panel 58 | + + + + + + + + + | | 2023-02-22 | [facility] | CLEAN CATCH | (missing) | (missing) | | (unavailable | 14:24:07 [facility] | | | + + + + + + + + + | Result panel 59 | + + + + + +-------+ + + | | 2023-02-22 | [facility] | 289 | (missing) | (missing) | | (unavailable | 16:50:07 [facility] | | | + + + +-------+ + + + + | Result panel 60 | + + + + + +-------+ + + | | 2023-04-25 | [facility] | 9.6 | (missing) | (missing) | | (unavailable | 10:12:07 [facility] | | | + + + +-------+ + + + + | Result panel 61 | + + + + + +--------+ + + | | 2023-04-25 | [facility] | 70.3 | (missing) | (missing) | | (unavailable | 10:12:07 [facility] | | | + + + +--------+ + + + + | Result panel 62 | + + + + + +--------+ + + | | 2023-04-25 | [facility] | 21.8 | (missing) | (missing) | | (unavailable | 10:12:07 [facility] | | | + + + +--------+ + + + + | Result panel 63 | + + + + + +-------+ + + | | 2023-04-25 | [facility] | 5.8 | (missing) | (missing) | | (unavailable | 10:: | [facility] | | | + + + +-------+ + + + + | Result panel 64 | + + + + + +-------+ + + | | 2023-04-25 | [facility] | 1.4 | (missing) | (missing) | | (unavailable | 10:12:07 [facility] | | | + + + +-------+ + + + + | Result panel 65 | + + + + + +-------+ + + | | 2023-04-25 | [facility] | 0.7 | (missing) | (missing) | | (unavailable | 10:12:07 [facility] | | | + + + +-------+ + + + + | Result panel 66 | + + + + + +-------+---------+ + | | 2023-04-25 | [facility] | 235 | mg/dL | (missing) | | (unavailable | 10::07 | [facility] | | | + + + +-------+---------+ + + + | Result panel 67 | + + + + + +------+---------+ + | | 2023-04-25 | [facility] | 12 | mg/dL | (missing) | | (unavailable | 10:: [facility] | | | + + + +------+---------+ + + + | Result panel 68 | + + + + + +--------+---------+ + | | 2023-04-25 | [facility] | 0.80 | mg/dL | (missing) | | (unavailable | 10:12:07 [facility] | | | + + + +--------+---------+ + + + | Result panel 69 | + + + + + +------+ + + | | 2023-04-25 | [facility] | 84 | (missing) | (missing) | | (unavailable | 10:: | [facility] | | | + + + +------+ + + + + | Result panel 70 | + + + + + +---------+ + + | | 2023-04-25 | [facility] | 15.00 | (missing) | (missing) | | (unavailable | 10:12:07 [facility] | | | + + + +---------+ + + + + | Result panel 71 | + + + + + +--------+ + + | | 2023-04-25 | [facility] | 4.78 | (missing) | (missing) | | (unavailable | 10::07 | [facility] | | | + + + +--------+ + + + + | Result panel 72 | + + + + + +-------+ + + | | 2023-04-25 | [facility] | 137 | (missing) | (missing) | | (unavailable | 10::07 | [facility] | | | + + + +-------+ + + + + | Result panel 73 | + + + + + +-------+ + + | | 2023-04-25 | [facility] | 3.5 | (missing) | (missing) | | (unavailable | 10:12:07 [facility] | | | + + + +-------+ + + + + | Result panel 74 | + + + + + +-------+ + + | | 2023-04-25 | [facility] | 103 | (missing) | (missing) | | (unavailable | 10:12:07 [facility] | | | + + + +-------+ + + + + | Result panel 75 | + + + + + +------+ + + | | 2023-04-25 | [facility] | 24 | (missing) | (missing) | | (unavailable | 10:12:07 [facility] | | | + + + +------+ + + + + | Result panel 76 | + + + + + +--------+ + + | | 2023-04-25 | [facility] | 13.5 | (missing) | (missing) | | (unavailable | 10:12:07 [facility] | | | + + + +--------+ + + + + | Result panel 77 | + + + + + +-------+---------+ + | | 2023-04-25 | [facility] | 8.8 | mg/dL | (missing) | | (unavailable | 10:12:07 [facility] | | | + + + +-------+---------+ + + + | Result panel 78 | + + + + + +-------+ + + | | 2023-04-25 | [facility] | 6.2 | (missing) | (missing) | | (unavailable | 10:12:07 [facility] | | | + + + +-------+ + + + + | Result panel 79 | + + + + + +-------+ + + | | 2023-04-25 | [facility] | 3.1 | (missing) | (missing) | | (unavailable | 10:12:07 [facility] | | | + + + +-------+ + + + + | Result panel 80 | + + + + + +-------+ + + | | 2023-04-25 | [facility] | 3.1 | (missing) | (missing) | | (unavailable | 10:12:07 [facility] | | | + + + +-------+ + + + + | Result panel 81 | + + + + + +--------+ + + | | 2023-04-25 | [facility] | 1.00 | (missing) | (missing) | | (unavailable | 10:12:07 [facility] | | | + + + +--------+ + + + + | Result panel 82 | + + + + + +--------+ + + | | 2023-04-25 | [facility] | 14.2 | (missing) | (missing) | | (unavailable | 10:12:07 [facility] | | | + + + +--------+ + + + + | Result panel 83 | + + + + + +-------+ + + | | 2023-04-25 | [facility] | 0.3 | (missing) | (missing) | | (unavailable | 10:12:07 [facility] | | | + + + +-------+ + + + + | Result panel 84 | + + + + + +------+ + + | | 2023-04-25 | [facility] | 12 | (missing) | (missing) | | (unavailable | 10:12:07 [facility] | | | + + + +------+ + + + + | Result panel 85 | + + + + + +-----+ + + | | 2023-04-25 | [facility] | 8 | (missing) | (missing) | | (unavailable | 10:12:07 [facility] | | | + + + +-----+ + + + + | Result panel 86 | + + + + + +------+ + + | | 2023-04-25 | [facility] | 77 | (missing) | (missing) | | (unavailable | 10:12:07 [facility] | | | + + + +------+ + + + + | Result panel 87 | + + + + + +-------+ + + | | 2023-04-25 | [facility] | 9.6 | (missing) | (missing) | | (unavailable | 10:12:07 [facility] | | | + + + +-------+ + + + + | Result panel 88 | + + + + + +--------+ + + | | 2023-04-25 | [facility] | 4.78 | (missing) | (missing) | | (unavailable | 10:12:07 [facility] | | | + + + +--------+ + + + + | Result panel 89 | + + + + + +--------+ + + | | 2023-04-25 | [facility] | 14.2 | (missing) | (missing) | | (unavailable | 10::07 | [facility] | | | + + + +--------+ + + + + | Result panel 90 | + + + + + +--------+ + + | | 2023-04-25 | [facility] | 42.6 | (missing) | (missing) | | (unavailable | 10:12:07 [facility] | | | + + + +--------+ + + + + | Result panel 91 | + + + + + +--------+ + + | | 2023-04-25 | [facility] | 89.1 | (missing) | (missing) | | (unavailable | 10:12:07 [facility] | | | + + + +--------+ + + + + | Result panel 92 | + + + + + +--------+ + + | | 2023-04-25 | [facility] | 29.7 | (missing) | (missing) | | (unavailable | 10:12:07 [facility] | | | + + + +--------+ + + + + | Result panel 93 | + + + + + +--------+ + + | | 2023-04-25 | [facility] | 42.6 | (missing) | (missing) | | (unavailable | 10:12:07 [facility] | | | + + + +--------+ + + + + | Result panel 94 | + + + + + +--------+ + + | | 2023-04-25 | [facility] | 33.3 | (missing) | (missing) | | (unavailable | 10:12:07 [facility] | | | + + + +--------+ + + + + | Result panel 95 | + + + + + +--------+ + + | | 2023-04-25 | [facility] | 14.0 | (missing) | (missing) | | (unavailable | 10:12:07 [facility] | | | + + + +--------+ + + + + | Result panel 96 | + + + + + +-------+ + + | | 2023-04-25 | [facility] | 267 | (missing) | (missing) | | (unavailable | 10:12:07 [facility] | | | + + + +-------+ + + + + | Result panel 97 | + + + + + +--------+ + + | | 2023-04-25 | [facility] | 70.3 | (missing) | (missing) | | (unavailable | 10:12:07 [facility] | | | + + + +--------+ + + + + | Result panel 98 | + + + + + +--------+ + + | | 2023-04-25 | [facility] | 21.8 | (missing) | (missing) | | (unavailable | 10:12:07 [facility] | | | + + + +--------+ + + + + | Result panel 99 | + + + + + +-------+ + + | | 2023-04-25 | [facility] | 5.8 | (missing) | (missing) | | (unavailable | 10:12:07 [facility] | | | + + + +-------+ + + + + | Result panel 100 | + + + + + +-------+ + + | | 2023-04-25 | [facility] | 1.4 | (missing) | (missing) | | (unavailable | 10:12:07 [facility] | | | + + + +-------+ + + + + | Result panel 101 | + + + + + +-------+ + + | | 2023-04-25 | [facility] | 0.7 | (missing) | (missing) | | (unavailable | 10:12:07 [facility] | | | + + + +-------+ + + + + | Result panel 102 | + + + + + +-------+---------+ + | | 2023-04-25 | [facility] | 235 | mg/dL | (missing) | | (unavailable | 10:12:07 [facility] | | | + + + +-------+---------+ + + + | Result panel 103 | + + + + + +------+---------+ + | | 2023-04-25 | [facility] | 12 | mg/dL | (missing) | | (unavailable | 10:12:07 [facility] | | | + + + +------+---------+ + + + | Result panel 104 | + + + + + +--------+ + + | | 2023-04-25 | [facility] | 89.1 | (missing) | (missing) | | (unavailable | 10:12:07 [facility] | | | + + + +--------+ + + + + | Result panel 105 | + + + + + +--------+---------+ + | | 2023-04-25 | [facility] | 0.80 | mg/dL | (missing) | | (unavailable | 10:12:07 [facility] | | | + + + +--------+---------+ + + + | Result panel 106 | + + + + + +------+ + + | | 2023-04-25 | [facility] | 84 | (missing) | (missing) | | (unavailable | 10:12:07 [facility] | | | + + + +------+ + + + + | Result panel 107 | + + + + + +---------+ + + | | 2023-04-25 | [facility] | 15.00 | (missing) | (missing) | | (unavailable | 10:12:07 [facility] | | | + + + +---------+ + + + + | Result panel 108 | + + + + + +-------+ + + | | 2023-04-25 | [facility] | 137 | (missing) | (missing) | | (unavailable | 10:12:07 [facility] | | | + + + +-------+ + + + + | Result panel 109 | + + + + + +-------+ + + | | 2023-04-25 | [facility] | 3.5 | (missing) | (missing) | | (unavailable | 10:12:07 [facility] | | | + + + +-------+ + + + + | Result panel 110 | + + + + + +-------+ + + | | 2023-04-25 | [facility] | 103 | (missing) | (missing) | | (unavailable | 10:12:07 [facility] | | | + + + +-------+ + + + + | Result panel 111 | + + + + + +------+ + + | | 2023-04-25 | [facility] | 24 | (missing) | (missing) | | (unavailable | 10:12:07 [facility] | | | + + + +------+ + + + + | Result panel 112 | + + + + + +--------+ + + | | 2023-04-25 | [facility] | 13.5 | (missing) | (missing) | | (unavailable | 10:12:07 [facility] | | | + + + +--------+ + + + + | Result panel 113 | + + + + + +-------+---------+ + | | 2023-04-25 | [facility] | 8.8 | mg/dL | (missing) | | (unavailable | 10:12:07 [facility] | | | + + + +-------+---------+ + + + | Result panel 114 | + + + + + +-------+ + + | | 2023-04-25 | [facility] | 6.2 | (missing) | (missing) | | (unavailable | 10:12:07 [facility] | | | + + + +-------+ + + + + | Result panel 115 | + + + + + +--------+ + + | | 2023-04-25 | [facility] | 29.7 | (missing) | (missing) | | (unavailable | 10:12:07 [facility] | | | + + + +--------+ + + + + | Result panel 116 | + + + + + +-------+ + + | | 2023-04-25 | [facility] | 3.1 | (missing) | (missing) | | (unavailable | 10:12:07 [facility] | | | + + + +-------+ + + + + | Result panel 117 | + + + + + +-------+ + + | | 2023-04-25 | [facility] | 3.1 | (missing) | (missing) | | (unavailable | 10:12:07 [facility] | | | + + + +-------+ + + + + | Result panel 118 | + + + + + +--------+ + + | | 2023-04-25 | [facility] | 1.00 | (missing) | (missing) | | (unavailable | 10:12:07 [facility] | | | + + + +--------+ + + + + | Result panel 119 | + + + + + +-------+ + + | | 2023-04-25 | [facility] | 0.3 | (missing) | (missing) | | (unavailable | 10:12:07 [facility] | | | + + + +-------+ + + + + | Result panel 120 | + + + + + +------+ + + | | 2023-04-25 | [facility] | 12 | (missing) | (missing) | | (unavailable | 10:12:07 [facility] | | | + + + +------+ + + + + | Result panel 121 | + + + + + +-----+ + + | | 2023-04-25 | [facility] | 8 | (missing) | (missing) | | (unavailable | 10:12:07 [facility] | | | + + + +-----+ + + + + | Result panel 122 | + + + + + +------+ + + | | 2023-04-25 | [facility] | 77 | (missing) | (missing) | | (unavailable | 10:12:07 [facility] | | | + + + +------+ + + + + | Result panel 123 | + + + + + +--------+ + + | | 2023-04-25 | [facility] | 33.3 | (missing) | (missing) | | (unavailable | 10::07 [facility] | | | + + + +--------+ + + + + | Result panel 124 | + + + + + +--------+ + + | | 2023-04-25 | [facility] | 14.0 | (missing) | (missing) | | (unavailable | 10:12:07 [facility] | | | + + + +--------+ + + + + | Result panel 125 | + + + + + +-------+ + + | | 2023-04-25 | [facility] | 267 | (missing) | (missing) | | (unavailable | 10:12:07 [facility] | | | + + + +-------+ + + Social History No information. Vital Signs + + + +---------+ | date | measurement | value | units | + + + +---------+ | 2022-11-04 00:00 | BMI | 42.4 | kg/m2 | + + + +---------+ | 2022-11-04 00:00 | BP_diastolic | 70 | mmHg | + + + +---------+ | 2022-11-04 00:00 | BP_systolic | 156 | mmHg | + + + +---------+ | 2022-11-04 00:00 | heart_rate | 82 | /min | + + + +---------+ | 2022-11-04 00:00 | height_metric | 167.64 | cm | + + + +---------+ | 2022-11-04 00:00 | height_standard | 66 | in | + + + +---------+ | 2022-11-04 00:00 | o2_saturation | 99 | % | + + + +---------+ | 2022-11-04 00:00 | respiration_rate | 16 | /min | + + + +---------+ | 2022-11-04 00:00 | temperature_metric | 36.78 | C | | | | | | + + + +---------+ | 2022-11-04 00:00 | | 98.2 | F | | | temperature_standar | | | | | d | | | + + + +---------+ | 2022-11-04 00:00 | weight_metric | 119.29 | kg | + + + +---------+ | 2022-11-04 00:00 | weight_standard | 262.99 | lb | + + + +---------+ | 2022-11-04 00:00 | weight_standard | 263 | lb | + + + +---------+ | 2022-11-09 00:00 | BMI | 39.1 | kg/m2 | + + + +---------+ | 2022-11-09 00:00 | BP_diastolic | 92 | mmHg | + + + +---------+ | 2022-11-09 00:00 | BP_systolic | 191 | mmHg | + + + +---------+ | 2022-11-09 00:00 | heart_rate | 69 | /min | + + + +---------+ | 2022-11-09 00:00 | height_metric | 167.64 | cm | + + + +---------+ | 2022-11-09 00:00 | height_standard | 66 | in | + + + +---------+ | 2022-11-09 00:00 | o2_saturation | 98 | % | + + + +---------+ | 2022-11-09 00:00 | respiration_rate | 18 | /min | + + + +---------+ | 2022-11-09 00:00 | temperature_metric | 36.83 | C | | | | | | + + + +---------+ | 2022-11-09 00:00 | | 98.3 | F | | | temperature_standar | | | | | d | | | + + + +---------+ | 2022-11-09 00:00 | weight_metric | 109.8 | kg | + + + +---------+ | 2022-11-09 00:00 | weight_standard | 242.07 | lb | + + + +---------+ | 2023-02-22 00:00 | BMI | 34.4 | kg/m2 | + + + +---------+ | 2023-02-22 00:00 | BP_diastolic | 71 | mmHg | + + + +---------+ | 2023-02-22 00:00 | BP_systolic | 186 | mmHg | + + + +---------+ | 2023-02-22 00:00 | heart_rate | 75 | /min | + + + +---------+ | 2023-02-22 00:00 | height_metric | 167.64 | cm | + + + +---------+ | 2023-02-22 00:00 | height_standard | 66 | in | + + + +---------+ | 2023-02-22 00:00 | o2_saturation | 96 | % | + + + +---------+ | 2023-02-22 00:00 | respiration_rate | 20 | /min | + + + +---------+ | 2023-02-22 00:00 | temperature_metric | 36.83 | C | | | | | | + + + +---------+ | 2023-02-22 00:00 | | 98.3 | F | | | temperature_standar | | | | | d | | | + + + +---------+ | 2023-02-22 00:00 | weight_metric | 96.8 | kg | + + + +---------+ | 2023-02-22 00:00 | weight_standard | 213.41 | lb | + + + +---------+ | 2023-04-13 00:00 | BMI | 33.3 | kg/m2 | + + + +---------+ | 2023-04-13 00:00 | BP_diastolic | 00 | mmHg | + + + +---------+ | 2023-04-13 00:00 | BP_systolic | 00 | mmHg | + + + +---------+ | 2023-04-13 00:00 | heart_rate | 0 | /min | + + + +---------+ | 2023-04-13 00:00 | height_metric | 167.64 | cm | + + + +---------+ | 2023-04-13 00:00 | height_standard | 66 | in | + + + +---------+ | 2023-04-13 00:00 | o2_saturation | 0 | % | + + + +---------+ | 2023-04-13 00:00 | respiration_rate | 0 | /min | + + + +---------+ | 2023-04-13 00:00 | temperature_metric | -17.78 | C | | | | | | + + + +---------+ | 2023-04-13 00:00 | | 0 | F | | | temperature_standar | | | | | d | | | + + + +---------+ | 2023-04-13 00:00 | weight_metric | 93.6 | kg | + + + +---------+ | 2023-04-13 00:00 | weight_standard | 206.35 | lb | + + + +---------+ | 2023-04-19 00:00 | BMI | 33.6 | kg/m2 | + + + +---------+ | 2023-04-19 00:00 | BP_diastolic | 84 | mmHg | + + + +---------+ | 2023-04-19 00:00 | BP_systolic | 169 | mmHg | + + + +---------+ | 2023-04-19 00:00 | heart_rate | 59 | /min | + + + +---------+ | 2023-04-19 00:00 | height_metric | 167.64 | cm | + + + +---------+ | 2023-04-19 00:00 | height_standard | 66 | in | + + + +---------+ | 2023-04-19 00:00 | o2_saturation | 96 | % | + + + +---------+ | 2023-04-19 00:00 | respiration_rate | 18 | /min | + + + +---------+ | 2023-04-19 00:00 | temperature_metric | 36.67 | C | | | | | | + + + +---------+ | 2023-04-19 00:00 | | 98 | F | | | temperature_standar | | | | | d | | | + + + +---------+ | 2023-04-19 00:00 | weight_metric | 94.35 | kg | + + + +---------+ | 2023-04-19 00:00 | weight_standard | 208 | lb | + + + +---------+ | 2023-04-19 00:00 | weight_standard | 208.01 | lb | + + + +---------+ | 2023-04-25 00:00 | BMI | 34.9 | kg/m2 | + + + +---------+ | 2023-04-25 00:00 | BP_diastolic | 64 | mmHg | + + + +---------+ | 2023-04-25 00:00 | BP_systolic | 120 | mmHg | + + + +---------+ | 2023-04-25 00:00 | heart_rate | 61 | /min | + + + +---------+ | 2023-04-25 00:00 | height_metric | 167.64 | cm | + + + +---------+ | 2023-04-25 00:00 | height_standard | 66 | in | + + + +---------+ | 2023-04-25 00:00 | o2_saturation | 90 | % | + + + +---------+ | 2023-04-25 00:00 | respiration_rate | 16 | /min | + + + +---------+ | 2023-04-25 00:00 | temperature_metric | 36.83 | C | | | | | | + + + +---------+ | 2023-04-25 00:00 | | 98.3 | F | | | temperature_standar | | | | | d | | | + + + +---------+ | 2023-04-25 00:00 | weight_metric | 98.2 | kg | + + + +---------+ | 2023-04-25 00:00 | weight_standard | 216.49 | lb | + + + +---------+ | 2023-04-28 00:00 | BMI | 34.9 | kg/m2 | + + + +---------+ | 2023-04-28 00:00 | BP_diastolic | 81 | mmHg | + + + +---------+ | 2023-04-28 00:00 | BP_systolic | 144 | mmHg | + + + +---------+ | 2023-04-28 00:00 | heart_rate | 63 | /min | + + + +---------+ | 2023-04-28 00:00 | height_metric | 167.64 | cm | + + + +---------+ | 2023-04-28 00:00 | height_standard | 66 | in | + + + +---------+ | 2023-04-28 00:00 | o2_saturation | 95 | % | + + + +---------+ | 2023-04-28 00:00 | respiration_rate | 17 | /min | + + + +---------+ | 2023-04-28 00:00 | temperature_metric | 36.56 | C | | | | | | + + + +---------+ | 2023-04-28 00:00 | | 97.8 | F | | | temperature_standar | | | | | d | | | + + + +---------+ | 2023-04-28 00:00 | weight_metric | 98.17 | kg | + + + +---------+ | 2023-04-28 00:00 | weight_metric | 98.18 | kg | + + + +---------+ | 2023-04-28 00:00 | weight_standard | 216.43 | lb | + + + +---------+ | 2023-04-28 00:00 | weight_standard | 216.44 | lb | + + + +---------+"
--- OUTSIDE RECORDS SUMMARY | ~2023-07-13 | XMS | Continuity of Care Document ---
Demographics + + + | Address | [address] | | | [place] [address] | + + + | Preferred Language | Unknown | + + + | Marital Status | Never | + + + | Zoroastrianism Affiliation | Unknown | + + + | Race | White | + + + | Ethnic Group | Not or | + + + Author + + + | Author | [facility] | + + + | Organization | [facility] | + + + | Address | [address] | | | [place] [address] | + + + | Phone | | + + + Care Team Providers + + + + | Care Emergency Preparedness Coordinator Name | Role | Phone | + [...] | 2022-11-04 00:00 | CETIRIZINE HCL | [facility] | + + + + | 2022-11-16 00:00 | CETIRIZINE HCL | [facility] | + + + + | 2023-02-22 00:00 | CETIRIZINE HCL | [facility] | + + + + | 2023-04-13 00:00 | CETIRIZINE HCL | [facility] | + + + + | 2023-04-19 00:00 | CETIRIZINE HCL | [facility] | + + + + | 2023-04-25 00:00 | CETIRIZINE HCL | [facility] | + + + + | 2023-04-28 00:00 | CETIRIZINE HCL | [facility] | + + + + | 2022-11-04 00:00 | LISINOPRIL | [facility] | + + + + | 2022-11-16 00:00 | LISINOPRIL | [facility] | + + + + | 2023-02-22 00:00 | LISINOPRIL | [facility] | + + + + | 2023-04-13 00:00 | LISINOPRIL | [facility] | + + + + | 2023-04-19 00:00 | LISINOPRIL | [facility] | + + + + | 2023-04-25 00:00 | LISINOPRIL | [facility] | + + + + | 2023-04-28 00:00 | LISINOPRIL | [facility] | + + + + | 2022-11-04 00:00 | OXYCODONE HCL | [facility] | + + + + | 2022-11-16 00:00 | OXYCODONE HCL | [facility] | + + + + | 2023-02-22 00:00 | OXYCODONE HCL | [facility] | + + + + | 2023-04-13 00:00 | OXYCODONE HCL | [facility] | + + + + | 2023-04-19 00:00 | OXYCODONE HCL | [facility] | + + + + | 2023-04-25 00:00 | OXYCODONE HCL | [facility] | + + + + | 2023-04-28 00:00 | OXYCODONE HCL | [facility] | + + + + | 2022-11-04 00:00 | RIVAROXABAN | [facility] | + + + + | 2022-11-16 00:00 | RIVAROXABAN | [facility] | + + + + | 2023-02-22 00:00 | RIVAROXABAN | [facility] | + + + + | 2023-04-13 00:00 | RIVAROXABAN | [facility] | + + + + | 2023-04-19 00:00 | RIVAROXABAN | [facility] | + + + + | 2023-04-25 00:00 | RIVAROXABAN | [facility] | + + + + | 2023-04-28 00:00 | RIVAROXABAN | [facility] | + + + + | 2022-11-04 00:00 | IPRATROPIUM/ALBUTEROL | [facility] | | | SULFATE | | + + + + | 2022-11-16 00:00 | IPRATROPIUM/ALBUTEROL | [facility] | | | SULFATE | | + + + + | 2023-02-22 00:00 | IPRATROPIUM/ALBUTEROL | [facility] | | | SULFATE | | + + + + | 2023-04-13 00:00 | IPRATROPIUM/ALBUTEROL | [facility] | | | SULFATE | | + + + + | 2023-04-19 00:00 | IPRATROPIUM/ALBUTEROL | [facility] | | | SULFATE | | + + + + | 2023-04-25 00:00 | IPRATROPIUM/ALBUTEROL | [facility] | | | SULFATE | | + + + + | 2023-04-28 00:00 | IPRATROPIUM/ALBUTEROL | [facility] | | | SULFATE | | + + + + | 2023-04-19 00:00 | EMPAGLIFLOZIN | [facility] | + + + + | 2023-04-25 00:00 | EMPAGLIFLOZIN | [facility] | + + + + | 2023-04-28 00:00 | EMPAGLIFLOZIN | [facility] | + + + + | 2022-11-04 00:00 | BREXPIPRAZOLE | [facility] | + + + + | 2022-11-16 00:00 | BREXPIPRAZOLE | [facility] | + + + + | 2023-02-22 00:00 | BREXPIPRAZOLE | [facility] | + + + + | 2023-04-13 00:00 | BREXPIPRAZOLE | [facility] | + + + + | 2023-04-19 00:00 | BREXPIPRAZOLE | [facility] | + + + + | 2023-04-25 00:00 | BREXPIPRAZOLE | [facility] | + + + + | 2023-04-28 00:00 | BREXPIPRAZOLE | [facility] | + + + + | 2022-11-04 00:00 | Insulin | [facility] | | | Vannessa,Hum.rec.anlog | | + + + + | 2022-11-16 00:00 | Insulin | [facility] | | | Glalaurae,Hum.rec.anlog | | + + + + | 2023-02-22 00:00 | Insulin | [facility] | | | Glargine,Hum.rec.anlog | | + + + + | 2023-04-13 00:00 | Insulin | [facility] | | | Glargine,Hum.rec.anlog | | + + + + | 2023-04-19 00:00 | Insulin | [facility] | | | Glargine,Hum.rec.anlog | | + + + + | 2023-04-25 00:00 | Insulin | [facility] | | | [email or web address] | | + + + + | 2023-04-28 00:00 | Insulin | [facility] | | | Hortencia Hurd | | + + + + | 2022-11-04 00:00 | PAROXETINE HCL | [facility] | + + + + | 2022-11-16 00:00 | PAROXETINE HCL | [facility] | + + + + | 2023-02-22 00:00 | PAROXETINE HCL | [facility] | + + + + | 2023-04-13 00:00 | PAROXETINE HCL | [facility] | + + + + | 2023-04-19 00:00 | PAROXETINE HCL | [facility] | + + + + | 2023-04-25 00:00 | PAROXETINE HCL | [facility] | + + + + | 2023-04-28 00:00 | PAROXETINE HCL | [facility] | + + + + | 2022-11-04 00:00 | clonAZEpam | [facility] | + + + + | 2022-11-16 00:00 | clonAZEpam | [facility] | + + + + | 2023-02-22 00:00 | clonAZEpam | [facility] | + + + + | 2023-04-13 00:00 | clonAZEpam | [facility] | + + + + | 2023-04-19 00:00 | clonAZEpam | [facility] | + + + + | 2023-04-25 00:00 | clonAZEpam | [facility] | + + + + | 2023-04-28 00:00 | clonAZEpam | [facility] | + + + + | 2022-11-04 00:00 | OMEPRAZOLE | [facility] | + + + + | 2022-11-16 00:00 | OMEPRAZOLE | [facility] | + + + + | 2023-02-22 00:00 | OMEPRAZOLE | [facility] | + + + + | 2023-04-13 00:00 | OMEPRAZOLE | [facility] | + + + + | 2023-04-19 00:00 | OMEPRAZOLE | [facility] | + + + + | 2023-04-25 00:00 | OMEPRAZOLE | [facility] | + + + + | 2023-04-28 00:00 | OMEPRAZOLE | [facility] | + + + + | 2022-11-04 00:00 | PRIMIDONE | [facility] | + + + + | 2022-11-16 00:00 | PRIMIDONE | [facility] | + + + + | 2023-02-22 00:00 | PRIMIDONE | [facility] | + + + + | 2023-04-13 00:00 | PRIMIDONE | [facility] | + + + + | 2023-04-19 00:00 | PRIMIDONE | [facility] | + + + + | 2023-04-25 00:00 | PRIMIDONE | [facility] | + + + + | 2023-04-28 00:00 | PRIMIDONE | [facility] | + + + + | 2022-11-04 00:00 | SIMVASTATIN | [facility] | + + + + | 2022-11-16 00:00 | SIMVASTATIN | [facility] | + + + + | 2023-02-22 00:00 | SIMVASTATIN | [facility] | + + + + | 2023-04-13 00:00 | SIMVASTATIN | [facility] | + + + + | 2023-04-19 00:00 | SIMVASTATIN | [facility] | + + + + | 2023-04-25 00:00 | SIMVASTATIN | [facility] | + + + + | 2023-04-28 00:00 | SIMVASTATIN | [facility] | + + + + | 2022-11-04 00:00 | SULINDAC | [facility] | + + + + | 2022-11-16 00:00 | SULINDAC | [facility] | + + + + | 2023-02-22 00:00 | SULINDAC | [facility] | + + + + | 2023-04-13 00:00 | SULINDAC | [facility] | + + + + | 2023-04-19 00:00 | SULINDAC | [facility] | + + + + | 2023-04-25 00:00 | SULINDAC | [facility] | + + + + | 2023-04-28 00:00 | SULINDAC | [facility] | + + + + | 2022-11-04 00:00 | ACETAMINOPHEN | [facility] | + + + + | 2022-11-16 00:00 | ACETAMINOPHEN | [facility] | + + + + | 2023-02-22 00:00 | ACETAMINOPHEN | [facility] | + + + + | 2023-04-13 00:00 | ACETAMINOPHEN | [facility] | + + + + | 2023-04-19 00:00 | ACETAMINOPHEN | [facility] | + + + + | 2023-04-25 00:00 | ACETAMINOPHEN | [facility] | + + + + | 2023-04-28 00:00 | ACETAMINOPHEN | [facility] | + + + + | 2022-11-04 00:00 | Melatonin | [facility] | + + + + | 2022-11-16 00:00 | Melatonin | [facility] | + + + + | 2023-02-22 00:00 | Melatonin | [facility] | + + + + | 2023-04-13 00:00 | Melatonin | [facility] | + + + + | 2023-04-19 00:00 | Melatonin | [facility] | + + + + | 2023-04-25 00:00 | Melatonin | [facility] | + + + + | 2023-04-28 00:00 | Melatonin | [facility] | + + + + | 2022-11-04 00:00 | PAROXETINE HCL | [facility] | + + + + | 2022-11-16 00:00 | PAROXETINE HCL | [facility] | + + + + | 2023-02-22 00:00 | PAROXETINE HCL | [facility] | + + + + | 2023-04-13 00:00 | PAROXETINE HCL | [facility] | + + + + | 2023-04-19 00:00 | PAROXETINE HCL | [facility] | + + + + | 2023-04-25 00:00 | PAROXETINE HCL | [facility] | + + + + | 2023-04-28 00:00 | PAROXETINE HCL | [facility] | + + + + | 2022-11-04 00:00 | PRAZOSIN HCL | [facility] | + + + + | 2022-11-16 00:00 | PRAZOSIN HCL | [facility] | + + + + | 2023-02-22 00:00 | PRAZOSIN HCL | [facility] | + + + + | 2023-04-13 00:00 | PRAZOSIN HCL | [facility] | + + + + | 2023-04-19 00:00 | PRAZOSIN HCL | [facility] | + + + + | 2023-04-25 00:00 | PRAZOSIN HCL | [facility] | + + + + | 2023-04-28 00:00 | PRAZOSIN HCL | [facility] | + + + + | 2022-11-04 00:00 | BISACODYL | [facility] | + + + + | 2022-11-16 00:00 | BISACODYL | [facility] | + + + + | 2023-02-22 00:00 | BISACODYL | [facility] | + + + + | 2023-04-13 00:00 | BISACODYL | [facility] | + + + + | 2023-04-19 00:00 | BISACODYL | [facility] | + + + + | 2023-04-25 00:00 | BISACODYL | [facility] | + + + + | 2023-04-28 00:00 | BISACODYL | [facility] | + + + + | 2022-04-03 00:00 | ACETAMINOPHEN | [facility] | + + + + | 2022-04-03 00:00 | ACETAMINOPHEN | [facility] | + + + + | 2022-04-03 00:00 | ACETAMINOPHEN | [facility] | + + + + | 2022-11-04 00:00 | PAROXETINE HCL | [facility] | + + + + | 2022-11-16 00:00 | PAROXETINE HCL | [facility] | + + + + | 2023-02-22 00:00 | PAROXETINE HCL | [facility] | + + + + | 2023-04-13 00:00 | PAROXETINE HCL | [facility] | + + + + | 2023-04-19 00:00 | PAROXETINE HCL | [facility] | + + + + | 2023-04-25 00:00 | PAROXETINE HCL | [facility] | + + + + | 2023-04-28 00:00 | PAROXETINE HCL | [facility] | + + + + | 2023-02-22 00:00 | AMLODIPINE BESYLATE | [facility] | + + + + | 2023-02-22 00:00 | AMLODIPINE BESYLATE | [facility] | + + + + | 2022-11-04 00:00 | MAGNESIUM HYDROXIDE/AL | [facility] | | | HYDROX | | + + + + | 2022-11-16 00:00 | MAGNESIUM HYDROXIDE/AL | [facility] | | | HYDROX | | + + + + | 2023-02-22 00:00 | MAGNESIUM HYDROXIDE/AL | [facility] | | | HYDROX | | + + + + | 2023-04-13 00:00 | MAGNESIUM HYDROXIDE/AL | [facility] | | | HYDROX | | + + + + | 2023-04-19 00:00 | MAGNESIUM HYDROXIDE/AL | [facility] | | | HYDROX | | + + + + | 2023-04-25 00:00 | MAGNESIUM HYDROXIDE/AL | [facility] | | | HYDROX | | + + + + | 2023-04-28 00:00 | MAGNESIUM HYDROXIDE/AL | [facility] | | | HYDROX | | + + + + | 2022-11-04 00:00 | CLINDAMYCIN HCL | [facility] | + + + + | 2022-11-16 00:00 | CLINDAMYCIN HCL | [facility] | + + + + | 2023-02-22 00:00 | CLINDAMYCIN HCL | [facility] | + + + + | 2023-04-13 00:00 | CLINDAMYCIN HCL | [facility] | + + + + | 2023-04-19 00:00 | CLINDAMYCIN HCL | [facility] | + + + + | 2023-04-25 00:00 | CLINDAMYCIN HCL | [facility] | + + + + | 2023-04-28 00:00 | CLINDAMYCIN HCL | [facility] | + + + + | 2022-11-04 00:00 | ZIPRASIDONE HCL | [facility] | + + + + | 2022-11-16 00:00 | ZIPRASIDONE HCL | [facility] | + + + + | 2023-02-22 00:00 | ZIPRASIDONE HCL | [facility] | + + + + | 2023-04-13 00:00 | ZIPRASIDONE HCL | [facility] | + + + + | 2023-04-19 00:00 | ZIPRASIDONE HCL | [facility] | + + + + | 2023-04-25 00:00 | ZIPRASIDONE HCL | [facility] | + + + + | 2023-04-28 00:00 | ZIPRASIDONE HCL | [facility] | + + + + | 2023-02-22 00:00 | INSULIN GLARGINE | [facility] | + + + + | 2023-02-22 00:00 | INSULIN GLARGINE | [facility] | + + + + | 2022-11-04 00:00 | FAMOTIDINE | [facility] | + + + + | 2022-11-16 00:00 | FAMOTIDINE | [facility] | + + + + | 2022-11-04 00:00 | GABAPENTIN | [facility] | + + + + | 2022-11-16 00:00 | GABAPENTIN | [facility] | + + + + | 2023-02-22 00:00 | GABAPENTIN | [facility] | + + + + | 2023-04-13 00:00 | GABAPENTIN | [facility] | + + + + | 2023-04-19 00:00 | GABAPENTIN | [facility] | + + + + | 2023-04-25 00:00 | GABAPENTIN | [facility] | + + + + | 2023-04-28 00:00 | GABAPENTIN | [facility] | + + + + | 2022-11-04 00:00 | GEMFIBROZIL | [facility] | + + + + | 2022-11-16 00:00 | GEMFIBROZIL | [facility] | + + + + | 2023-02-22 00:00 | GEMFIBROZIL | [facility] | + + + + | 2023-04-13 00:00 | GEMFIBROZIL | [facility] | + + + + | 2023-04-19 00:00 | GEMFIBROZIL | [facility] | + + + + | 2023-04-25 00:00 | GEMFIBROZIL | [facility] | + + + + | 2023-04-28 00:00 | GEMFIBROZIL | [facility] | + + + + | 2022-11-09 00:00 | ONDANSETRON | [facility] | + + + + | 2022-11-09 00:00 | ONDANSETRON | [facility] | + + + + | 2022-11-09 00:00 | ONDANSETRON | [facility] | + + + + | 2022-11-04 00:00 | PRAZOSIN HCL | [facility] | + + + + | 2022-11-16 00:00 | PRAZOSIN HCL | [facility] | + + + + | 2023-02-22 00:00 | PRAZOSIN HCL | [facility] | + + + + | 2023-04-13 00:00 | PRAZOSIN HCL | [facility] | + + + + | 2023-04-19 00:00 | PRAZOSIN HCL | [facility] | + + + + | 2023-04-25 00:00 | PRAZOSIN HCL | [facility] | + + + + | 2023-04-28 00:00 | PRAZOSIN HCL | [facility] | + + + + | 2022-11-09 00:00 | predniSONE | [facility] | + + + + | 2022-11-04 00:00 | FUROSEMIDE | [facility] | + + + + | 2022-11-16 00:00 | FUROSEMIDE | [facility] | + + + + | 2023-02-22 00:00 | FUROSEMIDE | [facility] | + + + + | 2023-04-13 00:00 | FUROSEMIDE | [facility] | + + + + | 2023-04-19 00:00 | FUROSEMIDE | [facility] | + + + + | 2023-04-25 00:00 | FUROSEMIDE | [facility] | + + + + | 2023-04-28 00:00 | FUROSEMIDE | [facility] | + + + + | 2022-11-04 00:00 | HALOPERIDOL | [facility] | + + + + | 2022-11-16 00:00 | HALOPERIDOL | [facility] | + + + + | 2023-02-22 00:00 | HALOPERIDOL | [facility] | + + + + | 2023-04-13 00:00 | HALOPERIDOL | [facility] | + + + + | 2023-04-19 00:00 | HALOPERIDOL | [facility] | + + + + | 2023-04-25 00:00 | HALOPERIDOL | [facility] | + + + + | 2023-04-28 00:00 | HALOPERIDOL | [facility] | + + + + | 2022-11-04 00:00 | ASPIRIN | [facility] | + + + + | 2022-11-16 00:00 | ASPIRIN | [facility] | + + + + | 2023-02-22 00:00 | ASPIRIN | [facility] | + + + + | 2023-04-13 00:00 | ASPIRIN | [facility] | + + + + | 2023-04-19 00:00 | ASPIRIN | [facility] | + + + + | 2023-04-25 00:00 | ASPIRIN | [facility] | + + + + | 2023-04-28 00:00 | ASPIRIN | [facility] | + + + + | 2021-11-10 00:00 | Scopolamine | [facility] | + + + + | 2021-11-10 00:00 | Scopolamine | [facility] | + + + + | 2021-11-10 00:00 | Scopolamine | [facility] | + + + + | 2022-11-04 00:00 | INSULIN ASPART | [facility] | + + + + | 2022-11-16 00:00 | INSULIN ASPART | [facility] | + + + + | 2023-02-22 00:00 | INSULIN ASPART | [facility] | + + + + | 2023-04-13 00:00 | INSULIN ASPART | [facility] | + + + + 2023-04-19 00:00 | INSULIN ASPART | [facility] | + + + + | 2023-04-25 00:00 | INSULIN ASPART | [facility] | + + + + | 2023-04-28 00:00 | INSULIN ASPART | [facility] | + + + + | 2022-11-04 00:00 | Insulin Aspart | [facility] | + + + + | 2022-11-16 00:00 | Insulin Aspart | [facility] | + + + + | 2023-02-22 00:00 | Insulin Aspart | [facility] | + + + + | 2023-04-13 00:00 | Insulin Aspart | [facility] | + + + + | 2023-04-19 00:00 | Insulin Aspart | [facility] | + + + + | 2023-04-25 00:00 | Insulin Aspart | [facility] | + + + + | 2023-04-28 00:00 | Insulin Aspart | [facility] | + + + + | 2022-11-04 00:00 | POTASSIUM CHLORIDE | [facility] | + + + + | 2022-11-16 00:00 | POTASSIUM CHLORIDE | [facility] | + + + + | 2023-02-22 00:00 | POTASSIUM CHLORIDE | [facility] | + + + + | 2023-04-13 00:00 | POTASSIUM CHLORIDE | [facility] | + + + + | 2023-04-19 00:00 | POTASSIUM CHLORIDE | [facility] | + + + + | 2023-04-25 00:00 | POTASSIUM CHLORIDE | [facility] | + + + + | 2023-04-28 00:00 | POTASSIUM CHLORIDE | [facility] | + + + + | 2022-11-04 00:00 | CARBIDOPA/LEVODOPA | [facility] | + + + + | 2022-11-16 00:00 | CARBIDOPA/LEVODOPA | [facility] | + + + + | 2023-02-22 00:00 | CARBIDOPA/LEVODOPA | [facility] | + + + + | 2023-04-13 00:00 | CARBIDOPA/LEVODOPA | [facility] | + + + + | 2023-04-19 00:00 | CARBIDOPA/LEVODOPA | [facility] | + + + + | 2023-04-25 00:00 | CARBIDOPA/LEVODOPA | [facility] | + + + + | 2023-04-28 00:00 | CARBIDOPA/LEVODOPA | [facility] | + + + + | 2022-11-04 00:00 | CYCLOBENZAPRINE HCL | [facility] | + + + + | 2022-11-16 00:00 | CYCLOBENZAPRINE HCL | [facility] | + + + + | 2023-02-22 00:00 | CYCLOBENZAPRINE HCL | [facility] | + + + + | 2023-04-13 00:00 | CYCLOBENZAPRINE HCL | [facility] | + + + + | 2023-04-19 00:00 | CYCLOBENZAPRINE HCL | [facility] | + + + + | 2023-04-25 00:00 | CYCLOBENZAPRINE HCL | [facility] | + + + + | 2023-04-28 00:00 | CYCLOBENZAPRINE HCL | [facility] | + + + + | 2022-11-04 00:00 | TRAMADOL HCL | [facility] | + + + + | 2022-11-16 00:00 | TRAMADOL HCL | [facility] | + + + + | 2023-02-22 00:00 | TRAMADOL HCL | [facility] | + + + + | 2023-04-13 00:00 | TRAMADOL HCL | [facility] | + + + + | 2023-04-19 00:00 | TRAMADOL HCL | [facility] | + + + + | 2023-04-25 00:00 | TRAMADOL HCL | [facility] | + + + + | 2023-04-28 00:00 | TRAMADOL HCL | [facility] | + + + + | 2022-11-04 00:00 | IPRATROPIUM BROMIDE | [facility] | + + + + | 2022-11-16 00:00 | IPRATROPIUM BROMIDE | [facility] | + + + + | 2023-02-22 00:00 | IPRATROPIUM BROMIDE | [facility] | + + + + | 2023-04-13 00:00 | IPRATROPIUM BROMIDE | [facility] | + + + + | 2023-04-19 00:00 | IPRATROPIUM BROMIDE | [facility] | + + + + | 2023-04-25 00:00 | IPRATROPIUM BROMIDE | [facility] | + + + + | 2023-04-28 00:00 | IPRATROPIUM BROMIDE | [facility] | + + + + | 2021-06-28 00:00 | | [facility] | | | SULFAMETHOXAZOLE/TRIMETHOPR | | | | IM DS | | + + + + | 2021-06-28 00:00 | | [facility] | | | SULFAMETHOXAZOLE/TRIMETHOPR | | | | IM DS | | + + + + | 2021-06-28 00:00 | | [facility] | | | SULFAMETHOXAZOLE/TRIMETHOPR | | | | IM DS | | + + + + | 2023-04-19 00:00 | | [facility] | | | SULFAMETHOXAZOLE/TRIMETHOPR | | | | IM DS | | + + + + | 2022-11-04 00:00 | HYDROCODONE/APAP | [facility] | | | (10-325MG) | | + + + + | 2022-11-16 00:00 | HYDROCODONE/APAP | [facility] | | | (10-325MG) | | + + + + | 2023-02-22 00:00 | HYDROCODONE/APAP | [facility] | | | (10-325MG) | | + + + + | 2023-04-13 00:00 | HYDROCODONE/APAP | [facility] | | | (10-325MG) | | + + + + | 2023-04-19 00:00 | HYDROCODONE/APAP | [facility] | | | (10-325MG) | | + + + + | 2023-04-25 00:00 | HYDROCODONE/APAP | [facility] | | | (10-325MG) | | + + + + | 2023-04-28 00:00 | HYDROCODONE/APAP | [facility] | | | (10-325MG) | | + + + + | 2022-11-04 00:00 | ALBUTEROL SULFATE | [facility] | + + + + | 2022-11-09 00:00 | ALBUTEROL SULFATE | [facility] | + + + + | 2022-11-09 00:00 | ALBUTEROL SULFATE | [facility] | + + + + | 2022-11-09 00:00 | ALBUTEROL SULFATE | [facility] | + + + + | 2022-11-16 00:00 | ALBUTEROL SULFATE | [facility] | + + + + | 2023-02-22 00:00 | ALBUTEROL SULFATE | [facility] | + + + + | 2023-04-13 00:00 | ALBUTEROL SULFATE | [facility] | + + + + | 2023-04-19 00:00 | ALBUTEROL SULFATE | [facility] | + + + + | 2023-04-25 00:00 | ALBUTEROL SULFATE | [facility] | + + + + | 2023-04-28 00:00 | ALBUTEROL SULFATE | [facility] | + + + + | 2022-11-04 00:00 | BUSPIRONE HCL | [facility] | + + + + | 2022-11-16 00:00 | BUSPIRONE HCL | [facility] | + + + + | 2023-02-22 00:00 | BUSPIRONE HCL | [facility] | + + + + | 2023-04-13 00:00 | BUSPIRONE HCL | [facility] | + + + + | 2023-04-19 00:00 | BUSPIRONE HCL | [facility] | + + + + | 2023-04-25 00:00 | BUSPIRONE HCL | [facility] | + + + + | 2023-04-28 00:00 | BUSPIRONE HCL | [facility] | + + + + | 2022-11-04 00:00 | BENZTROPINE MESYLATE | [facility] | + + + + | 2022-11-16 00:00 | BENZTROPINE MESYLATE | [facility] | + + + + | 2023-02-22 00:00 | BENZTROPINE MESYLATE | [facility] | + + + + | 2023-04-13 00:00 | BENZTROPINE MESYLATE | [facility] | + + + + | 2023-04-19 00:00 | BENZTROPINE MESYLATE | [facility] | + + + + | 2023-04-25 00:00 | BENZTROPINE MESYLATE | [facility] | + + + + | 2023-04-28 00:00 | BENZTROPINE MESYLATE | [facility] | + + + + | 2022-11-04 00:00 | FLUTICASONE/SALMETEROL | [facility] | + + + + | 2022-11-16 00:00 | FLUTICASONE/SALMETEROL | [facility] | + + + + | 2023-02-22 00:00 | FLUTICASONE/SALMETEROL | [facility] | + + + + | 2023-04-13 00:00 | FLUTICASONE/SALMETEROL | [facility] | + + + + | 2023-04-19 00:00 | FLUTICASONE/SALMETEROL | [facility] | + + + + | 2023-04-25 00:00 | FLUTICASONE/SALMETEROL | [facility] | + + + + | 2023-04-28 00:00 | FLUTICASONE/SALMETEROL | [facility] | + + + + | 2022-11-04 00:00 | FLUTICASONE/SALMETEROL | [facility] | + + + + | 2022-11-16 00:00 | FLUTICASONE/SALMETEROL | [facility] | + + + + | 2023-02-22 00:00 | FLUTICASONE/SALMETEROL | [facility] | + + + + | 2023-04-13 00:00 | FLUTICASONE/SALMETEROL | [facility] | + + + + | 2023-04-19 00:00 | FLUTICASONE/SALMETEROL | [facility] | + + + + | 2023-04-25 00:00 | FLUTICASONE/SALMETEROL | [facility] | + + + + | 2023-04-28 00:00 | FLUTICASONE/SALMETEROL | [facility] | + + + + | 2022-11-16 00:00 | PEG 3350/NA | [facility] | | | SULF,BICARB,CL/KCL | | + + + + | 2022-11-04 00:00 | LOPERAMIDE HCL | [facility] | + + + + | 2022-11-16 00:00 | LOPERAMIDE HCL | [facility] | + + + + | 2022-11-04 00:00 | BUPROPION HCL | [facility] | + + + + | 2022-11-16 00:00 | BUPROPION HCL | [facility] | + + + + | 2023-02-22 00:00 | BUPROPION HCL | [facility] | + + + + | 2023-04-13 00:00 | BUPROPION HCL | [facility] | + + + + | 2023-04-19 00:00 | BUPROPION HCL | [facility] | + + + + | 2023-04-25 00:00 | BUPROPION HCL | [facility] | + + + + | 2023-04-28 00:00 | BUPROPION HCL | [facility] | + + + + | 2022-11-04 00:00 | HYDROXYZINE PAMOATE | [facility] | + + + + | 2022-11-16 00:00 | HYDROXYZINE PAMOATE | [facility] | + + + + | 2023-02-22 00:00 | HYDROXYZINE PAMOATE | [facility] | + + + + | 2023-04-13 00:00 | HYDROXYZINE PAMOATE | [facility] | + + + + | 2023-04-19 00:00 | HYDROXYZINE PAMOATE | [facility] | + + + + | 2023-04-25 00:00 | HYDROXYZINE PAMOATE | [facility] | + + + + | 2023-04-28 00:00 | HYDROXYZINE PAMOATE | [facility] | + + + + Problems + + + + | date | description | facility | + + + + | 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 | | + + + + | 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 | | + + + + | 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 | | + + + + | 2021-02-04 00:00 | Injury of head | [facility] | + + + + | 2021-02-04 00:00 | Injury of head | [facility] | + + + + | 2021-02-04 00:00 | Injury of head | [facility] | + + + + | 2021-02-04 00:00 | Contusion of right knee | [facility] | + + + + | 2021-02-04 00:00 | Contusion of right knee | [facility] | + + + + | 2021-02-04 00:00 | Contusion of right knee | [facility] | + + + + | 2021-02-04 00:00 | Fracture of phalanx of toe | [facility] | | | of right foot | | + + + + | 2021-02-04 00:00 | Fracture of phalanx of toe | [facility] | | | of right foot | | + + + + | 2021-02-04 00:00 | Fracture of phalanx of toe | [facility] | | | of right foot | | + + + + | 2021-02-04 00:00 | Fall | [facility] | + + + + | 2021-02-04 00:00 | Fall | [facility] | + + + + | 2021-02-04 00:00 | Fall | [facility] | + + + + | 2021-06-15 00:00 | Exacerbation of chronic | [facility] | | | back pain | | + + + + | 2021-06-15 00:00 | Exacerbation of chronic | [facility] | | | back pain | | + + + + | 2021-06-15 00:00 | Exacerbation of chronic | [facility] | | | back pain | | + + + + | 2021-06-15 00:00 | Non-cardiac chest pain | [facility] | + + + + | 2021-06-15 00:00 | Non-cardiac chest pain | [facility] | + + + + | 2021-06-15 00:00 | Non-cardiac chest pain | [facility] | + + + + | 2021-06-28 00:00 | Urinary tract infection | [facility] | + + + + | 2021-06-28 00:00 | Urinary tract infection | [facility] | + + + + | 2021-06-28 00:00 | Urinary tract infection | [facility] | + + + + | 2021-11-18 00:00 | Respiratory syncytial | [facility] | | | virus bronchitis | | + + + + | 2021-11-18 00:00 | Respiratory syncytial | [facility] | | | virus bronchitis | | + + + + | 2021-11-18 00:00 | Respiratory syncytial | [facility] | | | virus bronchitis | | + + + + | 2021-11-19 00:00 | Acute exacerbation of | [facility] | | | chronic obstructive | | | | pulmonary disease | | + + + + | 2021-11-19 00:00 | Acute exacerbation of | [facility] | | | chronic obstructive | | | | pulmonary disease | | + + + + | 2021-11-19 00:00 | Acute exacerbation of | [facility] | | | chronic obstructive | | | | pulmonary disease | | + + + + | 2021-12-16 00:00 | Viral pharyngitis | [facility] | + + + + | 2021-12-16 00:00 | Viral pharyngitis | [facility] | + + + + | 2021-12-16 00:00 | Viral pharyngitis | [facility] | + + + + | 2022-04-03 00:00 | Infection due to severe | [facility] | | | acute respiratory syndrome | | | | coronavirus 2 (SARS-CoV-2) | | + + + + | 2022-04-03 00:00 | Infection due to severe | [facility] | | | acute respiratory syndrome | | | | coronavirus 2 (SARS-CoV-2) | | + + + + | 2022-04-03 00:00 | Infection due to severe | [facility] | | | acute respiratory syndrome | | | | coronavirus 2 (SARS-CoV-2) | | + + + + | 2022-04-24 00:00 | Chest wall pain | [facility] | + + + + | 2022-04-24 00:00 | Chest wall pain | [facility] | + + + + | 2022-04-24 00:00 | Chest wall pain | [facility] | + + + + | 2022-11-04 00:00 | Patient left without being | [facility] | | | seen | | + + + + | 2022-11-04 00:00 | Patient left without being | [facility] | | | seen | | + + + + | 2022-11-04 00:00 | Patient left without being | [facility] | | | seen | | + + + + | 2023-02-22 00:00 | Poorly controlled diabetes | [facility] | | | mellitus | | + + + + | 2023-02-22 00:00 | Poorly controlled diabetes | [facility] | | | mellitus | | + [...] | 2023-04-19 00:00 | Cellulitis | [facility] | + + + + | [...] + + + | 2023-04-19 15:24 | GLOBAL PROFESSIONAL (CURRENT) USE OF | [facility] | | | INSULIN | | + + + + | 2023-04-19 15:24 | CORRECTION (CURRENT) USE OF | [facility] | | | ASPIRIN | | + + + + | 2023-04-19 15:24 | OTHER GLOBAL PROFESSIONAL (CURRENT) | [facility] | | | DRUG [...] + | 2023-04-25 00:00 | Weakness | [facility] | + + + + | 2023-04-25 [...] + + + | 2023-04-25 10:08 | CORRECTION (CURRENT) USE OF | [facility] | | | INSULIN | | + + + + | 2023-04-25 10:08 | CORRECTION (CURRENT) USE OF | [facility] | | | ORAL HYPOGLYCEMIC DRUGS | | + + + + | 2023-04-25 10:08 | OTHER GLOBAL PROFESSIONAL (CURRENT) | [facility] | | | DRUG [...]
[~2023-07-13 09:52] MED LIST changes: +JARDIANCE10 MG PO
--- OUTSIDE RECORDS SUMMARY | 2023-07-13 09:54 | XMS ---
PreManage Notification: BLAIR ANDERS Security School Psychology Specialist Events 2 event(s) in the past 18 months Most recent security events: Elopement at [facility] 04/13/2023 09:53 - Patient eloped before treatment completed. - Patient with suicidal and/or homicidal ideations eloped. - Patient eloped with IV in place. Details: Patient LWOB. Elopement at [facility] 11/04/2022 11:37 - Patient eloped before treatment completed. - Patient with suicidal and/or homicidal ideations eloped. - Patient eloped with IV in place. Details: Patient LWBS. CRITERIA MET - 6 ED Visits in 6 Months - Group Notification - [facility] CARE PROVIDERS Wm Milton Marketing Planning Manager/Commercial Center Manager 05/18/2023-Current PHONE: [phone] AMNA SABILLON [facility] 02/06/2021-Current PHONE: [phone] Juanpablo Le Community Health Worker 11/02/2019-Current PHONE: [phone] FUENTES SAUNDERS 04/21/2019-Current PHONE: [phone] -, Kristie- Dentist: Warehouse Handler Current [facility] PHONE: [phone] [facility] Current PHONE: Unknown Care Guidelines exist for the following facilities: [facility] ( 01/02/2021 ) [facility] ( 05/25/2019 ) Care History Medical/Surgical 11/21/2021 [facility] - CHW CONTACTED PCP OFFICE- DISCUSSED WITH DAVID NGUYEN THAT THE PATIENT WOULD BENEFIT FROM A ER F/U.PATIENT CURRENTLY RESIDES AT [facility] AND DR SABILLON HAS NOW SET UP A VIRTUAL VISIT WITH PATIENT FOR 11/22/21 AND IN PERSON APPOINTMENT SET UP ON 12/05/21. 07/05/2021 [facility] - PATIENT WAS LAST SEEN BY PCP DR SABILLON ON 06/28/21. F/U APT SCHEDULED . E.D. VISIT COUNT (12 MO.) 8 [facility]. TOTAL 8 NOTE: Visits indicate total known visits. ED/UCC VISIT TRACKING (12 MO.) 07/13/2023 09:53 [facility] [place] TYPE: Emergency COMPLAINT: - SKIN PROBLEM 04/28/2023 12:51 [facility] [place] TYPE: Emergency COMPLAINT: - LEG PAIN DIAGNOSES: - Allergy status to other drugs, medicaments and biological substances - Allergy status to penicillin - Allergy status to serum and vaccine - Chronic obstructive pulmonary disease, unspecified - Nicotine dependence, unspecified, uncomplicated - Pain in left lower leg - Parkinson's disease - Presence of left artificial knee joint - Type 2 diabetes mellitus with diabetic neuropathy, unspecified 04/25/2023 10:08 [facility] [place] TYPE: Emergency COMPLAINT: - DIZZINESS DIAGNOSES: - Allergy status to other drugs, medicaments and biological substances - Allergy status to penicillin - Allergy status to serum and vaccine - Allergy to other foods - Chronic obstructive pulmonary disease, unspecified - Dizziness and giddiness - Gastro-esophageal reflux disease without esophagitis - correction (current) use of insulin - laborer marine terminal (current) use of oral hypoglycemic drugs - Other usp (current) drug therapy - Parkinson's disease - Type 2 diabetes mellitus without complications - Weakness 04/19/2023 15:24 [facility] [place] TYPE: Emergency COMPLAINT: - POSS R LEG BLOODCLOT DIAGNOSES: - Allergy status to other drugs, medicaments and biological substances - Allergy status to penicillin - Allergy status to serum and vaccine - Cellulitis of right lower limb - Chronic obstructive pulmonary disease, unspecified - laborer marine terminal (current) use of aspirin - laborer marine terminal (current) use of insulin - Nicotine dependence, unspecified, uncomplicated - Other usp (current) drug therapy - Parkinson's disease - Type 2 diabetes mellitus with diabetic polyneuropathy 04/13/2023 09:53 [facility] [place] TYPE: Emergency [...] - Gastro-esophageal reflux disease without esophagitis - laborer marine terminal (current) use of insulin - Other usp (current) drug therapy - Parkinson's disease - [...] Gastro-esophageal reflux disease without esophagitis - Other ad terminal makeup operator (current) drug therapy - Type 2 diabetes mellitus without complications 11/04/2022 11:37 [facility] [place] TYPE: Emergency COMPLAINT: - BLOOD SUGAR PROBLEM DIAGNOSES: - Other abnormal glucose - Procedure and treatment not carried out due to patient leaving prior to being seen by health care provider INPATIENT VISIT TRACKING (12 MO.) No inpatient visits to display in this time frame [id number]
[2023-07-13 10:19] VITALS: BP 167/69
== END 2023-07-13 10:21 | disposition home or self-care (01) ==
LOC: ED 09:52
DX: G57.61 Lesion of plantar nerve, right lower limb (principal); J44.9 Chronic obstructive pulmonary disease, unspecified; G20 Parkinson's disease; E11.9 Type 2 diabetes mellitus without complications; F17.200 Nicotine dependence, unspecified, uncomplicated; Z88.0 Allergy status to penicillin; Z88.8 Allergy status to other drugs, medicaments and biological substances; Z88.5 Allergy status to narcotic agent; Z79.82 Long term (current) use of aspirin; Z79.4 Long term (current) use of insulin
CPT/HCPCS: 99283

== ENCOUNTER 2023-10-08 16:35 | Emergency (ER) | payer OTHER ==
[~2023-10-08] VITALS: Ht 167.6 cm; Wt 90.3 kg
--- OUTSIDE RECORDS SUMMARY | 2023-10-08 16:38 | XMS ---
PreManage Notification: BLAIR [employer]ERS Security Route Jumper Events 2 event(s) in the past 18 months Most recent security events: Elopement at [facility] 04/13/2023 09:53 - Patient eloped before treatment completed. - Patient with suicidal and/or homicidal ideations eloped. - Patient eloped with IV in place. Details: Patient LWOB. Elopement at [facility] 11/04/2022 11:37 - Patient eloped before treatment completed. - Patient with suicidal and/or homicidal ideations eloped. - Patient eloped with IV in place. Details: Patient LWBS. CRITERIA MET - 6 ED Visits in 6 Months - Group Notification - [facility] PROVID[facility] W[facility] Cost Control Specialist/Refuse And Recycling Worker 09/18/2023-Current PHONE: [phone] AMNA SABILLON [facility] 02/06/2021-Current PHONE: [phone] Juanpablo Le Community Health Worker 11/02/2019-Current PHONE: [phone] FUENTES SAUNDERS 04/21/2019-Current PHONE: [phone] -, Kristie- Dentist: Tie Worker Current [facility] PHONE: [phone] DIANA DANIELS [facility] Current PHONE: Unknown Care Guidelines exist for the following facilities: [facility] ( 01/02/2021 ) [facility] ( 05/25/2019 ) Care History Medical/Surgical 11/21/2021 [facility] - [facility] CONTACTED PCP OFFICE- DISCUSSED WITH DAVID NGUYEN THAT THE PATIENT WOULD BENEFIT FROM A ER F/U.PATIENT CURRENTLY RESIDES AT [facility] FOR [facility] AND DR SABILLON HAS NOW SET UP A VIRTUAL VISIT WITH PATIENT FOR 11/22/21 AND IN PERSON APPOINTMENT SET UP ON 12/05/21. 07/05/2021 [facility] - PATIENT WAS LAST SEEN BY PCP DR SABILLON ON 06/28/21. F/U APT SCHEDULED . E.D. VISIT COUNT (12 MO.) 9 [facility]. TOTAL 9 NOTE: Visits indicate total known visits. ED/UCC VISIT TRACKING (12 MO.) 10/08/2023 16:37 [facility] [place] TYPE: Emergency COMPLAINT: - DIZZY SPELLS,MEMORY ISSUES,HIGH BLOOD SUGAR 07/13/2023 09:53 [facility] [place] TYPE: Emergency COMPLAINT: - SKIN PROBLEM DIAGNOSES: - Allergy status to narcotic agent - Allergy status to other drugs, medicaments and biological substances - Allergy status to penicillin - Chronic obstructive pulmonary disease, unspecified - Lesion of plantar nerve, right lower limb - detention (current) use of aspirin - detention (current) use of insulin - Nicotine dependence, unspecified, uncomplicated - Pain in right foot - Parkinson's disease - Type 2 diabetes mellitus without complications 04/28/2023 12:51 [facility] [place] TYPE: Emergency COMPLAINT: - [...] with diabetic neuropathy, unspecified 04/25/2023 10:08 [facility] [place] TYPE: Emergency COMPLAINT: - DIZZINESS DIAGNOSES: - Allergy status to other drugs, medicaments and biological substances - Allergy status to penicillin - Allergy status to serum and vaccine - Allergy to other foods - Chronic obstructive pulmonary disease, unspecified - Dizziness and giddiness - Gastro-esophageal reflux disease without esophagitis - detention (current) use of insulin - assistant terminal manager (current) use of oral hypoglycemic drugs - Other [facility] (current) drug therapy - Parkinson's disease - [...] - Chronic obstructive pulmonary disease, unspecified - assistant terminal manager (current) use of aspirin - assistant terminal manager (current) use of insulin - Nicotine dependence, unspecified, uncomplicated - Other [facility] (current) drug therapy - Parkinson's disease - [...] - Gastro-esophageal reflux disease without esophagitis - detention (current) use of insulin - Other [facility] (current) drug therapy - Parkinson's disease - [...] reflux disease without esophagitis - Other termite control representative (current) drug therapy - Type 2 diabetes mellitus without complications 11/04/2022 11:37 [facility] [place] TYPE: Emergency COMPLAINT: - BLOOD SUGAR PROBLEM DIAGNOSES: - Other abnormal glucose - Procedure and treatment not carried out due to patient leaving prior to being seen by health care provider INPATIENT VISIT TRACKING (12 MO.) No inpatient visits to display in this time frame [id number]
[2023-10-08] MEDS ORDERED: MECLIZINE HCL25 MG PO (17:15)
[2023-10-08 18:02] VITALS: BP 161/82
== END 2023-10-08 18:03 | disposition home or self-care (01) ==
LOC: ED 16:35
DX: R42 Dizziness and giddiness (principal); J44.9 Chronic obstructive pulmonary disease, unspecified; E11.9 Type 2 diabetes mellitus without complications; G20.A1 Parkinson's disease without dyskinesia, without mention of fluctuations; F31.9 Bipolar disorder, unspecified; F20.9 Schizophrenia, unspecified; F17.210 Nicotine dependence, cigarettes, uncomplicated; Z88.0 Allergy status to penicillin; Z88.8 Allergy status to other drugs, medicaments and biological substances; Z88.1 Allergy status to other antibiotic agents; Z88.7 Allergy status to serum and vaccine; Z79.899 Other long term (current) drug therapy; Z79.4 Long term (current) use of insulin; Z79.82 Long term (current) use of aspirin
CPT/HCPCS: A9270

== ENCOUNTER 2024-05-08 13:13 | Emergency (ER) | payer OTHER ==
[~2024-05-08] VITALS: Ht 167.6 cm; Wt 81.8 kg
[~2024-05-08 13:13] MED LIST changes: +MECLIZINE HCL25 MG PO
[2024-05-08] MEDS ORDERED: PREGABALIN 75 MG CAP PO ONE (13:30)
[2024-05-08 13:57] LABS: BASOPHILS 0.2 % (0-2); EOSINOPHILS 0.9 % (0-6); HEMATOCRIT 43.5 % (35.0-50.0); HEMOGLOBIN 15.1 g/dL (12.0-18.0); LYMPHOCYTES 25.3 % (24-44); MCH 32.6 (27-36); MCHC 34.7 g/dl (30-36); MCV 94.2 fl (81-99); MONOCYTES 5.4 % (0-12); NEUTROPHILS 68.2 % (39-80); PLATELET COUNT 211 K/uL (140-440); RBC 4.62 M/ul (4.3-5.7); RDW 12.6 (10.5-15.0)
[2024-05-08 14:06] LABS: ALBUMIN 2.9 g/dL (3.4-5.0); ALBUMIN/GLOBULIN RATIO 0.97 (1.1-2.4); ANION GAP 13.9 (7-21); BILIRUBIN, TOTAL 0.3 ng/dL (0.2-1.0); BUN/CREATININE RATIO 17.97 (6.0-28.6); CALCIUM 8.4 mg/dL (8.5-10.1); CREATININE, SERUM 0.89 mg/dL (0.55-1.02); MAGNESIUM 1.9 mg/dL (1.8-2.4); POTASSIUM 3.9 mmol/L (3.5-5.1); PROTEIN, TOTAL 5.9 g/dL (6.4-8.2)
[2024-05-08] MEDS ORDERED: INSULIN LISPRO 100 UNIT/ML ML SUB-Q ONE (14:30)
[2024-05-08] MEDS ORDERED: LYRICA75 MG PO (14:47)
[2024-05-08 15:05] VITALS: BP 115/70
== END 2024-05-08 15:06 | disposition home or self-care (01) ==
LOC: ED 13:13
PROVIDERS: Family Medicine
DX: M50.122 Cervical disc disorder at C5-C6 level with radiculopathy (principal); M50.123 Cervical disc disorder at C6-C7 level with radiculopathy; J44.9 Chronic obstructive pulmonary disease, unspecified; E11.9 Type 2 diabetes mellitus without complications; G20.A1 Parkinson's disease without dyskinesia, without mention of fluctuations; K21.9 Gastro-esophageal reflux disease without esophagitis; F17.200 Nicotine dependence, unspecified, uncomplicated; Z79.84 Long term (current) use of oral hypoglycemic drugs; Z79.899 Other long term (current) drug therapy; Z79.4 Long term (current) use of insulin; Z88.0 Allergy status to penicillin; Z96.652 Presence of left artificial knee joint
CPT/HCPCS: 36415; 72040; 80053; 83735; 85025; 99285-25; J1815

== ENCOUNTER 2025-03-06 09:26 | Emergency (ER) | payer OTHER ==
[~2025-03-06] VITALS: Ht 167.6 cm; Wt 79.1 kg
[~2025-03-06 09:26] MED LIST changes: +LYRICA75 MG PO
[2025-03-06 11:09] VITALS: BP 171/71
== END 2025-03-06 11:09 | disposition home or self-care (01) ==
LOC: ED 09:26
DX: S80.02XA Contusion of left knee, initial encounter (principal); S80.01XA Contusion of right knee, initial encounter; S70.01XA Contusion of right hip, initial encounter; F43.10 Post-traumatic stress disorder, unspecified; W18.30XA Fall on same level, unspecified, initial encounter; K21.9 Gastro-esophageal reflux disease without esophagitis; J44.9 Chronic obstructive pulmonary disease, unspecified; E11.9 Type 2 diabetes mellitus without complications; F17.200 Nicotine dependence, unspecified, uncomplicated; Z88.0 Allergy status to penicillin; Z88.1 Allergy status to other antibiotic agents; Z88.8 Allergy status to other drugs, medicaments and biological substances
CPT/HCPCS: 72170; 73560; 99283

== ENCOUNTER 2025-07-29 14:16 | Emergency (ER) | payer OTHER ==
[~2025-07-29] VITALS: Ht 167.6 cm; Wt 78.2 kg
[2025-07-29] MEDS ORDERED: FUROSEMIDE20 MG PO (14:28)
[2025-07-29] MEDS ORDERED: POTASSIUM CHLO20 ME2 PO (14:30)
[2025-07-29] MEDS ORDERED: DAPAGLIFLOZIN5 MG PO (14:30)
[2025-07-29] MEDS ORDERED: MECLIZINE HCL12.5 MG PO (14:30)
[2025-07-29 16:59] VITALS: BP 113/68
== END 2025-07-29 16:58 | disposition home or self-care (01) ==
LOC: ED 14:16
DX: S00.81XA Abrasion of other part of head, initial encounter (principal); S60.512A Abrasion of left hand, initial encounter; S80.812A Abrasion, left lower leg, initial encounter; W10.1XXA Fall (on)(from) sidewalk curb, initial encounter; E11.42 Type 2 diabetes mellitus with diabetic polyneuropathy; G20.A1 Parkinson's disease without dyskinesia, without mention of fluctuations; K21.9 Gastro-esophageal reflux disease without esophagitis; F17.200 Nicotine dependence, unspecified, uncomplicated; Z88.0 Allergy status to penicillin; Z88.7 Allergy status to serum and vaccine; Z88.8 Allergy status to other drugs, medicaments and biological substances; Z79.82 Long term (current) use of aspirin; Z79.4 Long term (current) use of insulin; Z79.899 Other long term (current) drug therapy
CPT/HCPCS: 70450; 72125; 99284-25

== ENCOUNTER 2025-10-01 22:54 | Emergency (ER) | payer OTHER ==
[~2025-10-01] VITALS: Ht 167.6 cm; Wt 78.5 kg
[~2025-10-01 22:54] MED LIST changes: +DAPAGLIFLOZIN5 MG PO; +FUROSEMIDE20 MG PO; +MECLIZINE HCL12.5 MG PO; +POTASSIUM CHLO20 ME2 PO
[2025-10-02 02:21] VITALS: BP 143/65
== END 2025-10-02 02:26 | disposition home or self-care (01) ==
LOC: ED 22:54
DX: S00.83XA Contusion of other part of head, initial encounter (principal); J44.9 Chronic obstructive pulmonary disease, unspecified; E11.9 Type 2 diabetes mellitus without complications; K21.9 Gastro-esophageal reflux disease without esophagitis; F17.200 Nicotine dependence, unspecified, uncomplicated; W18.30XA Fall on same level, unspecified, initial encounter; Z79.4 Long term (current) use of insulin; Z79.899 Other long term (current) drug therapy; Z88.8 Allergy status to other drugs, medicaments and biological substances; Z88.0 Allergy status to penicillin; Z88.1 Allergy status to other antibiotic agents
CPT/HCPCS: 70450; 72125; 73080; 73130; 99284-25

== ENCOUNTER 2025-11-15 16:53 | Emergency (ER) | payer OTHER ==
[~2025-11-15] VITALS: Ht 167.6 cm; Wt 73.9 kg
--- OUTSIDE RECORDS SUMMARY | ~2025-11-15 | XMS | Continuity of Care Document ---
Demographics + + + | Address | [address] | | | [place] [address] | + + + | Preferred Language | Unknown | + + + | Marital Status | Never | + + + | Faith Affiliation | Unknown | + + + | Race | White | + + + | Ethnic Group | Not or | + + + Author + + + | Author | [facility] | + + + | Organization | [facility] | + + + | Address | [address] | | | [place] [address] | + + + | Phone | | + + + Care Team Providers + + + + | Care Personnel Quality Assurance Auditor Name | Role | Phone | + + + + Unavailable | Unavailable | + + + + Unavailable | Unavailable | + + + + Allergies No information. Encounters No information. Functional Status No information. Immunizations No information. Medications + + + + | date | description | facility | + + + + | (no date) | CETIRIZINE HCL | [facility] | | | | [facility] | + + + + | (no date) | LISINOPRIL | [facility] | | | | [facility] | + + + + | (no date) | OXYCODONE HCL | [facility] | | | | [facility] | + + + + | (no date) | RIVAROXABAN | [facility] | | | | [facility] | + + + + | (no date) | IPRATROPIUM/ALBUTEROL | [facility] | | | SULFATE | [facility] | + + + + | (no date) | Dapagliflozin Propanediol | [facility] | | | | [facility] | + + + + | (no date) | BREXPIPRAZOLE | [facility] | | | | [facility] | + + + + | (no date) | PAROXETINE HCL | [facility] | | | | [facility] | + + + + | (no date) | clonAZEpam | [facility] | | | | [facility] | + + + + | (no date) | OMEPRAZOLE | [facility] | | | | [facility] | + + + + | (no date) | POTASSIUM CHLORIDE | [facility] | | | | [facility] | + + + + | (no date) | SIMVASTATIN | [facility] | | | | [facility] | + + + + | (no date) | SULINDAC | [facility] | | | | [facility] | + + + + | (no date) | ACETAMINOPHEN | [facility] | | | | [facility] | + + + + | (no date) | Melatonin | [facility] | | | | [facility] | + + + + | (no date) | PAROXETINE HCL | [facility] | | | | [facility] | + + + + | (no date) | BISACODYL | [facility] | | | | [facility] | + + + + | (no date) | PAROXETINE HCL | [facility] | | | | [facility] | + + + + | (no date) | MAGNESIUM HYDROXIDE/AL | [facility] | | | HYDROX | [facility] | + + + + | (no date) | CLINDAMYCIN HCL | [facility] | | | | [facility] | + + + + | (no date) | ZIPRASIDONE HCL | [facility] | | | | [facility] | + + + + | (no date) | FUROSEMIDE | [facility] | | | | [facility] | + + + + | (no date) | GABAPENTIN | [facility] | | | | [facility] | + + + + | (no date) | GEMFIBROZIL | [facility] | | | | [facility] | + + + + | (no date) | PRAZOSIN HCL | [facility] | | | | [facility] | + + + + | (no date) | FUROSEMIDE | [facility] | | | | [facility] | + + + + | (no date) | HALOPERIDOL | [facility] | | | | [facility] | + + + + | (no date) | ASPIRIN | [facility] | | | | [facility] | + + + + | (no date) | INSULIN ASPART | [facility] | | | | [facility] | + + + + | (no date) | Insulin Aspart | [facility] | | | | [facility] | + + + + | (no date) | POTASSIUM CHLORIDE | [facility] | | | | [facility] | + + + + | (no date) | CARBIDOPA/LEVODOPA | [facility] | | | | [facility] | + + + + | (no date) | CYCLOBENZAPRINE HCL | [facility] | | | | [facility] | + + + + | (no date) | TRAMADOL HCL | [facility] | | | | [facility] | + + + + | (no date) | IPRATROPIUM BROMIDE | [facility] | | | | [facility] | + + + + | (no date) | HYDROCODONE/APAP | [facility] | | | ([phone]) | [facility] | + + + + | (no date) | ALBUTEROL SULFATE | [facility] | | | | [facility] | + + + + | (no date) | BUSPIRONE HCL | [facility] | | | | [facility] | + + + + | (no date) | BENZTROPINE MESYLATE | [facility] | | | | [facility] | + + + + | (no date) | FLUTICASONE/SALMETEROL | [facility] | | | | [facility] | + + + + | (no date) | FLUTICASONE/SALMETEROL | [facility] | | | | [facility] | + + + + | (no date) | BUPROPION HCL | [facility] | | | | [facility] | + + + + | (no date) | HYDROXYZINE PAMOATE | [facility] | | | | [facility] | + + + + | (no date) | MECLIZINE HCL | [facility] | | | | [facility] | + + + + Problems + + + + | | description | facility | + + + + | 2025-10-02 00:00 | Contusion of head | [facility] | | | | [facility] | + + + + | 2025-10-02 00:00 | Ground-level fall | [facility] | | | | [facility] | + + + + Procedures No information. Results/Labs No information. Social History +--------+ + + | date | description | facility | +--------+ + + Vital Signs + + + +---------+ | date | measurement | value | units | + + + +---------+ | 2025-10-01 00:00 | BMI | 27.9 | kg/m2 | + + + +---------+ | 2025-10-01 00:00 | height_metric | 167.64 | cm | + + + +---------+ | 2025-10-01 00:00 | height_standard | 66 | in | + + + +---------+ | 2025-10-01 00:00 | weight_metric | 78.5 | kg | + + + +---------+ | 2025-10-01 00:00 | weight_standard | 173.062 | lb | + + + +---------+ | 2025-10-02 00:00 | BP_diastolic | 65 | mmHg | + + + +---------+ | 2025-10-02 00:00 | BP_systolic | 143 | mmHg | + + + +---------+ | 2025-10-02 00:00 | heart_rate | 80 | /min | + + + +---------+ | 2025-10-02 00:00 | o2_saturation | 91 | % | + + + +---------+ | 2025-10-02 00:00 | respiration_rate | 16 | /min | + + + +---------+ | 2025-10-02 00:00 | | 97.8 | F | | | temperature_standar | | | | | d | | | + + + +---------+"
[2025-11-15] MEDS ORDERED: CLEOCIN HCL300 MG PO (20:58)
[2025-11-15 23:49] VITALS: BP 174/85
== END 2025-11-15 21:19 | disposition home or self-care (01) ==
LOC: ED 16:53
DX: S02.2XXA Fracture of nasal bones, initial encounter for closed fracture (principal); F43.10 Post-traumatic stress disorder, unspecified; E11.9 Type 2 diabetes mellitus without complications; J44.9 Chronic obstructive pulmonary disease, unspecified; F17.200 Nicotine dependence, unspecified, uncomplicated; K21.9 Gastro-esophageal reflux disease without esophagitis; Z88.0 Allergy status to penicillin
CPT/HCPCS: 70160; 73030; 73560; 99283